=== PATIENT | male | born 1945 | race Caucasian/White ===

== ENCOUNTER 2020-09-07 15:04 | Outpatient (REF) | payer MEDICARE, SELFPAY ==
[2020-09-07 16:34] LABS: Thyroid Stimulating Hormone 2.26 mIU/mL (0.32-4.0)
== END 2020-09-07 15:05 | disposition home or self-care (01) ==
LOC: HO.LAB 15:04
PROVIDERS: PCP Internal Medicine; Visit Provider Internal Medicine
DX: E03.9 Hypothyroidism, unspecified (principal)
CPT/HCPCS: 84443

== ENCOUNTER 2020-12-12 13:26 | Outpatient (REF) | payer MEDICARE, SELFPAY ==
[2020-12-12 14:49] LABS: Cholesterol 194 mg/dL; HDL Cholesterol 57 mg/dL; LDL Cholesterol Calculated 88 mg/dl; Triglycerides 249 mg/dL
[2020-12-12 14:58] LABS: Anion Gap 13 (12-20); Blood Urea Nitrogen 13 mg/dL (9-16); Calcium 9.9 mg/dL (8.4-10.2); Carbon Dioxide 32 mmol/L (22-29); Chloride 99 mmol/L (96-108); Estimated Glomerular Filt Rate > 60; Phosphorus 3.8 mg/dL (2.7-4.5); Potassium 4.8 mmol/l (3.3-5.1); Sodium 139 mmol/L (135-145)
[2020-12-12 15:14] LABS: Thyroid Stimulating Hormone 2.77 uIU/mL (0.32-4.0)
[2020-12-12 16:02] LABS: Renal w Reflex Lab Use Only Order verified
== END 2020-12-12 13:27 | disposition home or self-care (01) ==
LOC: HO.LAB 13:26
PROVIDERS: Absent Provider Internal Medicine Nephrology; PCP Internal Medicine; Visit Provider Internal Medicine
DX: N20.0 Calculus of kidney (principal); E03.9 Hypothyroidism, unspecified
CPT/HCPCS: 36415; 80051; 80061; 82310; 82565; 84100; 84443; 84520

== ENCOUNTER 2021-03-17 14:36 | Outpatient (REF) | payer MEDICARE, SELFPAY ==
[2021-03-17 15:30] LABS: Cholesterol 208 mg/dL; HDL Cholesterol 54 mg/dL; LDL Cholesterol Calculated 101 mg/dl; Triglycerides 266 mg/dL
[2021-03-17 15:50] LABS: Thyroid Stimulating Hormone 3.73 uIU/mL (0.32-4.0)
== END 2021-03-17 14:37 | disposition home or self-care (01) ==
LOC: HO.LAB 14:36
PROVIDERS: PCP Internal Medicine; Visit Provider Internal Medicine
DX: E11.9 Type 2 diabetes mellitus without complications (principal); E03.9 Hypothyroidism, unspecified
CPT/HCPCS: 36415; 80061; 84443

== ENCOUNTER 2021-06-07 14:34 | Outpatient (REF) | payer MEDICARE, SELFPAY ==
[2021-06-07 16:15] LABS: Calcium 10.2 mg/dL (8.4-10.2)
[2021-06-07 16:18] LABS: Cholesterol 219 mg/dL; HDL Cholesterol 58 mg/dL; LDL Cholesterol Calculated 111 mg/dl; Triglycerides 251 mg/dL
[2021-06-07 16:21] LABS: Anion Gap 15 (12-20); Blood Urea Nitrogen 13 mg/dL (9-16); Calcium 10.2 mg/dL (8.4-10.2); Carbon Dioxide 30 mmol/L (22-29); Chloride 100 mmol/L (96-108); Estimated Glomerular Filt Rate > 60; Phosphorus 3.8 mg/dL (2.7-4.5); Potassium 4.3 mmol/L (3.3-5.1); Sodium 141 mmol/L (135-145)
[2021-06-07 16:39] LABS: Thyroid Stimulating Hormone 1.71 uIU/mL (0.32-4.0)
== END 2021-06-07 14:35 | disposition home or self-care (01) ==
LOC: HO.LAB 14:34
PROVIDERS: Absent Provider Internal Medicine; PCP Internal Medicine; Visit Provider Internal Medicine Nephrology
DX: E03.9 Hypothyroidism, unspecified (principal); E11.9 Type 2 diabetes mellitus without complications; N20.0 Calculus of kidney
CPT/HCPCS: 36415; 80051; 80061; 82310; 82565; 84100; 84443; 84520

== ENCOUNTER 2022-03-26 09:34 | Outpatient (REF) | payer MEDICARE, SELFPAY ==
[2022-03-26 11:59] LABS: Prostate Specific Antigen < 0.05 ng/mL (<0.05-4.0)
== END 2022-03-26 09:35 | disposition home or self-care (01) ==
LOC: HO.LAB 09:34
PROVIDERS: Absent Provider Physician Assistant; PCP Internal Medicine; Visit Provider Internal Medicine
DX: Z12.5 Encounter for screening for malignant neoplasm of prostate (principal); Z85.46 Personal history of malignant neoplasm of prostate
CPT/HCPCS: 36415; 84153

== ENCOUNTER 2022-07-09 14:19 | Outpatient (REF) | payer MEDICARE, SELFPAY ==
[2022-07-09 16:24] LABS: Thyroid Stimulating Hormone 1.34 uIU/mL (0.32-4.0)
== END 2022-07-09 14:20 | disposition home or self-care (01) ==
LOC: HO.LAB 14:19
PROVIDERS: PCP Internal Medicine; Visit Provider Internal Medicine
DX: Z00.00 Encounter for general adult medical examination without abnormal findings (principal)
CPT/HCPCS: 36415; 84443

== ENCOUNTER 2022-10-24 09:39 | Outpatient (REF) | payer MEDICARE, SELFPAY ==
[2022-10-24 09:56] LABS: MANUAL DIFF FLAG NO
[2022-10-24 10:22] LABS: Basophils Absolute Auto 0.1 X10*3/uL (0.0-0.2); Basophils Percent Auto 1.1 % (0-2); Eosinophils Absolute Auto 0.3 X10*3/uL (0.0-0.4); Eosinophils Percent Auto 3.8 % (0-4); Hematocrit 50.4 % (42.0-52.0); Hemoglobin 16.4 g/dl (14.0-18.0); Imm Gran Abs Auto 0.03 X10*3/uL (0.00-0.03); Imm Gran Pct Auto 0.3 % (0.0-0.4); Lymphocytes Absolute Auto 3.1 X10*3/uL (1.2-4.9); Lymphocytes Percent Auto 34.6 % (20-40); Mean Corpuscular HGB Conc 32.5 g/dl (31.0-36.0); Mean Corpuscular Hemoglobin 30.4 pg (27.0-33.0); Mean Corpuscular Volume 93.3 fL (80.0-98.0); Mean Platelet Volume 10.3 fL (9.4-12.4); Monocytes Absolute Auto 0.6 X10*3/uL (0.1-1.2); Monocytes Percent Auto 6.9 % (2-11); Neutrophils Absolute Auto 4.8 x10*3/uL (2.0-8.3); Neutrophils Percent Auto 53.3 % (45-73); Platelet Count 262 X10*3/uL (160-400); Red Cell Distribution Width 12.7 % (11.0-16.0)
[2022-10-24 11:20] LABS: Alanine Aminotransferase 14 U/L (0-40); Albumin Level 4.2 g/dL (3.5-5.0); Alkaline Phosphatase 72 U/L (39-117); Anion Gap 16 (12-20); Aspartate Amino Transferase 22 U/L (5-37); Bilirubin Total 1.4 mg/dL (0.0-1.0); Blood Urea Nitrogen 11 mg/dL (9-16); Carbon Dioxide 29 mmol/L (22-29); Chloride 99 mmol/L (96-108); Cholesterol 224 mg/dL; Estimated Glomerular Filt Rate > 60; Glucose Fasting 85 mg/dL (60-99); HDL Cholesterol 58 mg/dL; LDL Cholesterol Calculated 127 mg/dl; Potassium 4.1 mmol/L (3.3-5.1); Prostate Specific Antigen Scr < 0.10 ng/mL (<0.05-4.0); Sodium 140 mmol/L (135-145); Total Protein 7.7 g/dL (6.5-8.0); Triglycerides 197 mg/dL
== END 2022-10-24 09:40 | disposition home or self-care (01) ==
LOC: HO.LAB 09:39
PROVIDERS: PCP Internal Medicine; Visit Provider Internal Medicine
DX: Z00.00 Encounter for general adult medical examination without abnormal findings (principal); Z12.5 Encounter for screening for malignant neoplasm of prostate; Z13.0 Encounter for screening for diseases of the blood and blood-forming organs and certain disorders involving the immune mechanism
CPT/HCPCS: 36415; 80053; 80061; 84153; 85025

== ENCOUNTER 2023-04-23 09:00 | Outpatient (REF) | payer MEDICARE, SELFPAY | END 2023-04-23 09:01 | disposition home or self-care (01) | LOC: HO.LAB 09:00 | PROVIDERS: PCP Internal Medicine; Visit Provider Internal Medicine | DX: Z13.89 Encounter for screening for other disorder (principal) ==

== ENCOUNTER 2023-07-29 09:18 | Outpatient (REF) | payer MEDICARE, SELFPAY ==
[2023-07-29 09:34] LABS: MANUAL DIFF FLAG NO
[2023-07-29 10:03] LABS: Basophils Absolute Auto 0.1 X10*3/uL (0.0-0.2); Basophils Percent Auto 1.2 % (0-2); Eosinophils Absolute Auto 0.4 X10*3/uL (0.0-0.4); Eosinophils Percent Auto 4.1 % (0-4); Hematocrit 49.1 % (42.0-52.0); Hemoglobin 16.1 g/dl (14.0-18.0); Imm Gran Abs Auto 0.02 X10*3/uL (0.00-0.03); Imm Gran Pct Auto 0.2 % (0.0-0.4); Lymphocytes Absolute Auto 3.4 X10*3/uL (1.2-4.9); Lymphocytes Percent Auto 39.8 % (20-40); Mean Corpuscular HGB Conc 32.8 g/dl (31.0-36.0); Mean Corpuscular Hemoglobin 30.7 pg (27.0-33.0); Mean Corpuscular Volume 93.7 fL (80.0-98.0); Mean Platelet Volume 9.3 fL (9.4-12.4); Monocytes Absolute Auto 0.6 X10*3/uL (0.1-1.2); Monocytes Percent Auto 6.5 % (2-11); Neutrophils Absolute Auto 4.1 x10*3/uL (2.0-8.3); Neutrophils Percent Auto 48.2 % (45-73); Platelet Count 287 X10*3/uL (160-400); Red Blood Count 5.24 X10*6/uL (4.60-5.80); Red Cell Distribution Width 12.4 % (11.0-16.0); White Blood Count 8.5 X10*3/uL (4.8-10.8)
[2023-07-29 11:07] LABS: Alanine Aminotransferase 12 U/L (0-40); Albumin Level 4.2 g/dL (3.5-5.0); Alkaline Phosphatase 64 U/L (39-117); Anion Gap 12 (12-20); Aspartate Amino Transferase 19 U/L (5-37); Blood Urea Nitrogen 11 mg/dL (9-16); Calcium 10.2 mg/dL (8.4-10.2); Carbon Dioxide 32 mmol/L (22-29); Chloride 100 mmol/L (96-108); Cholesterol 224 mg/dL (<200); Estimated Glomerular Filt Rate > 60; Glucose Fasting 90 mg/dL (60-99); HDL Cholesterol 60 mg/dL (>40); LDL Cholesterol Calculated 126 mg/dL (<100); Potassium 4.4 mmol/L (3.3-5.1); Sodium 140 mmol/L (135-145); Thyroid Stimulating Hormone 6.86 uIU/mL (0.32-4.0); Total Protein 8.1 g/dL (6.5-8.0); Triglycerides 193 mg/dL (<150)
== END 2023-07-29 09:19 | disposition home or self-care (01) ==
LOC: HO.LAB 09:18
PROVIDERS: PCP Internal Medicine; Visit Provider Internal Medicine
DX: D64.9 Anemia, unspecified (principal); N28.9 Disorder of kidney and ureter, unspecified; E03.9 Hypothyroidism, unspecified; E78.5 Hyperlipidemia, unspecified
CPT/HCPCS: 36415; 80053; 80061; 84443; 85025

== ENCOUNTER 2023-10-30 11:25 | Outpatient (AMB) | payer BC, SELFPAY ==
[2023-10-30 11:26] VITALS: BP 122/66; PULSE 87; O2SAT 97; BMI 20.4
--- NOTE | 2023-10-30 11:26 | MHC.PC.OV ---
Vital Signs 10/30/23 11:26 Height 5 ft 10 in Weight 142 lb BMI 20.4 BP 122/66 Blood Pressure Location Lt brachial Position Sitting Pulse 87 Pulse Source Pulse Oximeter Pulse Oximetry (%) 97 Oxygen Delivery Method Room Air Intake Visit Reasons: 3mth f/u Engine Mechanic Required: No Digital Designer: Not Required per policy Accompanied by: Self / Same As Patient Allergies Gadolinium-Containing Contrast Medi [Gadolinium-Containing Contrast] Adverse Reaction (Mild, Verified 10/30/23 11:26) VOMITING Medication List - Last Reconciled 10/31/23 by He Babcock MD Bacillus coagulans (Probiotic (B. coagulans)) cells PO biotin mcg PO cholecalciferol (vitamin D3) 25 mcg PO DAILY fexofenadine (Shanique Allergy) 180 mg PO DAILY hydrochlorothiazide 25 mg PO DAILY levothyroxine 75 mcg PO DAILY lorazepam 0.5 mg PO Q6H PRN melatonin 10 mg PO BEDTIME PRN multivitamin 1 tab PO DAILY omeprazole 20 mg PO DAILY paroxetine HCl 20 mg PO DAILY tamsulosin 0.4 mg PO DAILY Tobacco use date assessed: 04/24/23 Fall risk assessment: No Falls in past year Last assessed Fall Risk: 10/30/23 Dental Screening Dental Screen Date: 10/30/23 Did you have a dental visit in the last 12 months?: Yes Did you have a dental problem in the last 6 months where you did not have access to dental care?: No Was dental information given to patient?: Patient has dentist HPI 3mth f/u HPI Details HTN hypothyroidism and chronic anxiety; doing well on current rx PFSH Medical History Thromboembolism Surgical History History of ileostomy S/P excision of lipoma History of thyroid nodule History of prostatectomy Family History Father Diabetes Congestive heart failure Mother Diabetes Heart disease Social History Housing: House Alcohol intake: never Patient Tobacco Use Status: Never used Tobacco e-Cigarette/Vaping Use: Never Used Second Hand Smoke Exposure: No service: No Current occupational status: retired Cognitive needs: No Hearing needs: No Vision needs: Yes Questionnaire Thrive Questionnaire Date Thrive assessed: 04/24/23 JOSIAS-7 AMB Questionnaire JOSIAS-7 Date JOSIAS - 7 assessed: 04/24/23 Source: Developed by Drs. Guero Aiken, Mali Rendon, Rupesh Vargas and colleagues, with an educational zackery from [email or web address]. Review of Systems Const Denies chills, Denies headache(s) and Denies weight loss ENT Denies headache(s) Card Denies chest pain, Denies syncope, Denies irregular heart rhythm and Denies dyspnea Resp Denies chest congestion, Denies cough and Denies dyspnea GI Denies abdominal pain, Denies change in stool character, Denies nausea and Denies vomiting Musc Denies deformity and Denies joint swelling Neuro Denies syncope and Denies headache(s) Physical exam (Primary Care) Vital Signs: Last Vital Signs Pulse 87 10/30/23 11:26 BP 122/66 10/30/23 11:26 Pulse Ox 97 10/30/23 11:26 Oxygen Delivery Method Room Air 10/30/23 11:26 BMI result Body Mass Index 20.4 Tobacco/Smoking Status: Tobacco use Status Tobacco use date assessed 04/24/23 10/30/23 11:27 Patient Tobacco Use Status Never used Tobacco 10/30/23 11:27 Tobacco use type 09/20/21 13:12 e-Cigarette/Vaping Use Never Used 10/30/23 11:27 Thrive Assessment: Date of Thrive Assessment Date Thrive assessed 04/24/23 10/30/23 11:27 Const General: cooperative, comfortable, no acute distress and alert Neck Neck: Yes no lymphadenopathy Thyroid: Thyroid normal Resp Effort & Inspection: normal respiratory effort Auscultation: clear to auscultation bilaterally Percussion: percussion normal Cardio Jugular venous distension: no JVD Palpation: normal PMI Rate: regular rate Rhythm: regular rhythm Heart sounds: S1 normal heart sound present and S2 normal heart sound present GI Inspection: Yes normal to inspection Palpation (GI): No hepatosplenomegaly present Skin General skin exam: no rashes or lesions noted Extrem General: Yes no clubbing, cyanosis or edema Assessment and Plan Assessment & Plan (1) Depression: Code(s): F32.A - Depression, unspecified Plan: stable; sheriff=me rx (2) Anxiety: Code(s): F41.9 - Anxiety disorder, unspecified Plan: stable; same rx (3) Hypothyroidism: Code(s): E03.9 - Hypothyroidism, unspecified Plan: stable; do labs Orders: Orders Complete Blood Count Auto Diff Today D64.9 - Anemia, unspecified Comprehensive [place]. Panel Fast Today N28.9 - Disorder of kidney and ureter, unspecified Lipid Panel 10/30/23 E78.5 - Hyperlipidemia, unspecified Thyroid Stimulating Hormone Today E03.9 - Hypothyroidism, unspecified Coding Level of Care Code Est Pt Level 4 (80603) Diagnoses Depression F32.A Anxiety F41.9 Hypothyroidism E03.9
== END 2023-10-30 11:42 | disposition home or self-care (01) ==
PROVIDERS: PCP Internal Medicine; Visit Provider Internal Medicine
DX: F32.A Depression, unspecified (principal); F41.9 Anxiety disorder, unspecified; E03.9 Hypothyroidism, unspecified
CPT/HCPCS: 99214

== ENCOUNTER 2024-02-11 09:02 | Outpatient (REF) | payer BC, SELFPAY ==
[2024-02-11 09:20] LABS: MANUAL DIFF FLAG NO
[2024-02-11 10:00] LABS: Basophils Absolute Auto 0.1 X10*3/uL (0.0-0.2); Basophils Percent Auto 1.3 % (0-2); Eosinophils Absolute Auto 0.3 X10*3/uL (0.0-0.4); Eosinophils Percent Auto 3.3 % (0-4); Hematocrit 45.3 % (42.0-52.0); Imm Gran Abs Auto 0.02 X10*3/uL (0.00-0.03); Imm Gran Pct Auto 0.3 % (0.0-0.4); Lymphocytes Absolute Auto 2.8 X10*3/uL (1.2-4.9); Lymphocytes Percent Auto 35.2 % (20-40); Mean Corpuscular HGB Conc 33.1 g/dl (31.0-36.0); Mean Corpuscular Hemoglobin 30.6 pg (27.0-33.0); Mean Corpuscular Volume 92.4 fL (80.0-98.0); Mean Platelet Volume 9.4 fL (9.4-12.4); Monocytes Absolute Auto 0.6 X10*3/uL (0.1-1.2); Monocytes Percent Auto 7.4 % (2-11); Neutrophils Absolute Auto 4.1 x10*3/uL (2.0-8.3); Neutrophils Percent Auto 52.5 % (45-73); Platelet Count 320 X10*3/uL (160-400); Red Cell Distribution Width 12.9 % (11.0-16.0); White Blood Count 7.9 X10*3/uL (4.8-10.8)
[2024-02-11 10:28] LABS: Alanine Aminotransferase 15 U/L (0-40); Alkaline Phosphatase 70 U/L (39-117); Anion Gap 12 (12-20); Aspartate Amino Transferase 18 U/L (5-37); Blood Urea Nitrogen 11 mg/dL (9-16); Calcium 9.8 mg/dL (8.4-10.2); Carbon Dioxide 32 mmol/L (22-29); Chloride 102 mmol/L (96-108); Cholesterol 199 mg/dL (<200); Estimated Glomerular Filt Rate > 60; Glucose Fasting 90 mg/dL (60-99); HDL Cholesterol 64 mg/dL (>40); LDL Cholesterol Calculated 105 mg/dL (<100); Potassium 3.8 mmol/L (3.3-5.1); Sodium 142 mmol/L (135-145); Total Protein 7.6 g/dL (6.5-8.0); Triglycerides 150 mg/dL (<150)
[2024-02-11 10:43] LABS: Thyroid Stimulating Hormone 6.35 uIU/mL (0.32-4.0)
== END 2024-02-11 09:03 | disposition home or self-care (01) ==
LOC: HO.LAB 09:02
PROVIDERS: PCP Internal Medicine; Visit Provider Internal Medicine
DX: N28.9 Disorder of kidney and ureter, unspecified (principal); E03.9 Hypothyroidism, unspecified; E78.5 Hyperlipidemia, unspecified; D64.9 Anemia, unspecified
CPT/HCPCS: 36415; 80053; 80061; 84443; 85025

== ENCOUNTER 2024-02-13 11:29 | Outpatient (AMB) | payer BC, SELFPAY ==
[2024-02-13 11:30] VITALS: BP 114/64; PULSE 67; O2SAT 98; BMI 19.4
--- NOTE | 2024-02-13 11:30 | A.OFFPC_ITS ---
Vital Signs 02/13/24 11:30 Height 5 ft 10 in Weight 135 lb BMI 19.4 BP 114/64 Blood Pressure Location Lt brachial Position Sitting Pulse 67 Pulse Source Pulse Oximeter Pulse Oximetry (%) 98 Oxygen Delivery Method Room Air Intake Visit Reasons: 3 Month F/U Wireless Construction Manager Required: No Drafter Castings: Not Required per policy Accompanied by: Self / Same As Patient Allergies Gadolinium-Containing Contrast Medi [Gadolinium-Containing Contrast] Adverse Reaction (Mild, Verified 02/13/24 11:30) VOMITING Medication List - Last Reconciled 02/13/24 by He Babcock MD Bacillus coagulans (Probiotic (B. coagulans)) cells PO biotin mcg PO cholecalciferol (vitamin D3) 25 mcg PO DAILY fexofenadine (Shanique Allergy) 180 mg PO DAILY hydrochlorothiazide 25 mg PO DAILY levothyroxine 75 mcg PO DAILY lorazepam 0.5 mg PO Q6H PRN multivitamin 1 tab PO DAILY omeprazole 20 mg PO DAILY paroxetine HCl 20 mg PO DAILY tamsulosin 0.4 mg PO DAILY Tobacco use date assessed: 02/13/24 Fall risk assessment: No Falls in past year Last assessed Fall Risk: 02/13/24 Dental Screening Dental Screen Date: 02/13/24 Did you have a dental visit in the last 12 months?: Yes Did you have a dental problem in the last 6 months where you did not have access to dental care?: No Was dental information given to patient?: Patient has dentist HPI 3 Month F/U HPI Details hypothyr on rx; doing well and compliant PFSH Medical History Thromboembolism Surgical History History of ileostomy S/P excision of lipoma History of thyroid nodule History of prostatectomy Family History Father Diabetes Congestive heart failure Mother Diabetes Heart disease Social History Housing: House Alcohol intake: never Patient Tobacco Use Status: Never used Tobacco e-Cigarette/Vaping Use: Never Used Second Hand Smoke Exposure: No service: No Current occupational status: retired Cognitive needs: No Hearing needs: No Vision needs: Yes Questionnaire PHQ-9 Over the last 2 weeks, how often have you been bothered by any of the following problems? 1. Little interest or pleasure in doing things: not at all 2. Feeling down, depressed, or hopeless: not at all 3. Trouble falling or staying asleep, or sleeping too much: not at all 4. Feeling tired or having little energy: not at all 5. Poor appetite or overeating: not at all 6. Feeling bad about yourself - or that you are a failure or have let yourself or your family down: not at all 7. Trouble concentrating on things, such as reading the newspaper or watching television: not at all 8. Moving or speaking so slowly that other people could have noticed. Or the opposite - being so fidgety or restless that you have been moving around a lot more than usual: not at all 9. Thoughts that you would be better off or of hurting yourself in some way: not at all Total score: 0 Depression Screening Interpretation: Negative Depression Screening Done: Yes 85201 - PHQ-9 Billing: Yes Source: Developed by Drs. Guero Aiken, Mali Rendon, Rupesh Vargas and colleagues, with an educational zackery from [employer]. Thrive Questionnaire Date Thrive assessed: 02/13/24 I am a: Patient What is your living situation today?: I have a steady place to live Within the past 12 months, did the food you bought not last and you didn't have the money to get more?: Never true Within the past 12 months, did you worry whether your food would run out before you got money to buy more?: Never true Do you have trouble paying for medicines?: No Do you have trouble getting transportation to medical appointments?: No Do you have trouble paying your heating and electricity bill?: No Do you have trouble taking care of your child, family member or friend?: No Do you have trouble with day-to-day activities such as bathing, preparing meals, shopping, managing finances, etc.?: No Are you currently unemployed and looking for a job?: No Are you interested in more education?: No Please select the resources that you would like help with: None THRIVE Score: 0 AUDIT C Alcohol Use Questionnaire (AUDIT-C) 1. How often do you have a drink containing alcohol?: Never Total Score: 0 Score Reviewed/Action Taken: Yes JOSIAS-7 AMB Questionnaire JOSIAS-7 Date JOSIAS - 7 assessed: 02/13/24 Feeling nervous, anxious, or on edge: 0 = Not at all Not being able to stop or control worryin = Not at all Worrying too much about different things: 0 = Not at all Trouble relaxin = Not at all Being so restless that it is hard to sit still: 0 = Not at all Becoming easily annoyed or irritable: 0 = Not at all Feeling afraid as if something awful might happen: 0 = Not at all Total JOSIAS-7 score (0-4 normal; 5-9 mild; 10-14 moderate; 15-21 severe): 0 Source: Developed by Drs. Guero Aiken, Mali Rendon, Rupesh Vargas and colleagues, with an educational zackery from [employer]. Review of Systems Const Denies chills, Denies headache(s) and Denies weight loss ENT Denies headache(s) Card Denies chest pain, Denies syncope, Denies irregular heart rhythm and Denies dy spnea Resp Denies chest congestion, Denies cough and Denies dyspnea GI Denies abdominal pain, Denies change in stool character, Denies nausea and Farooq es vomiting Musc Denies deformity and Denies joint swelling Neuro Denies syncope and Denies headache(s) Physical exam (Primary Care) Vital Signs: Last Vital Signs Pulse 67 02/13/24 11:30 BP 114/64 02/13/24 11:30 Pulse Ox 98 02/13/24 11:30 Oxygen Delivery Method Room Air 02/13/24 11:30 BMI result Body Mass Index 19.4 Tobacco/Smoking Status: Tobacco use Status Tobacco use date assessed 02/13/24 02/13/24 11:38 Patient Tobacco Use Status Never used Tobacco 02/13/24 11:38 Tobacco use type 09/20/21 13:12 e-Cigarette/Vaping Use Never Used 02/13/24 11:38 PHQ-9: PHQ-9 Score PHQ-9: Total score 0 02/13/24 11:38 Depression Screening Interpretation: Negative Thrive Assessment: Date of Thrive Assessment Date Thrive assessed 02/13/24 02/13/24 11:38 Const General: cooperative, comfortable, no acute distress and alert Neck Neck: Yes no lymphadenopathy Thyroid: Thyroid normal Resp Effort & Inspection: normal respiratory effort Auscultation: clear to auscultation bilaterally Percussion: percussion normal Cardio Jugular venous distension: no JVD Palpation: normal PMI Rate: regular rate Rhythm: regular rhythm Heart sounds: S1 normal heart sound present and S2 normal heart sound present GI Inspection: Yes normal to inspection Palpation (GI): No hepatosplenomegaly present Skin General skin exam: no rashes or lesions noted Extrem General: Yes no clubbing, cyanosis or edema Assessment and Plan Assessment & Plan (1) Hypothyroidism: Code(s): E03.9 - Hypothyroidism, unspecified Plan: stable; same rx Orders: Orders Thyroid Stimulating Hormone Today E03.9 - Hypothyroidism, unspecified Medications: Refilled paroxetine HCl 20 mg PO DAILY 90 tabs 8RF Coding Level of Care Code Est Pt Level 3 (26629) Diagnoses Hypothyroidism E03.9
== END 2024-02-13 11:57 | disposition home or self-care (01) ==
PROVIDERS: PCP Internal Medicine; Visit Provider Internal Medicine
DX: E03.9 Hypothyroidism, unspecified (principal)
CPT/HCPCS: 99213

== ENCOUNTER 2024-05-15 12:06 | Outpatient (REF) | payer BC, SELFPAY ==
[2024-05-15 13:36] LABS: Thyroid Stimulating Hormone 4.15 uIU/mL (0.32-4.0)
== END 2024-05-15 12:07 | disposition home or self-care (01) ==
LOC: HO.LAB 12:06
PROVIDERS: PCP Internal Medicine; Visit Provider Internal Medicine
DX: E03.9 Hypothyroidism, unspecified (principal)
CPT/HCPCS: 36415; 84443

== ENCOUNTER 2024-05-20 10:54 | Outpatient (AMB) | payer BC, SELFPAY ==
[2024-05-20 10:57] VITALS: BP 128/62; PULSE 74; O2SAT 98; BMI 19.4
--- NOTE | 2024-05-20 10:57 | MHC.PC.OV ---
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 coagulans)) cells PO biotin mcg PO cholecalciferol (vitamin D3) 25 mcg PO DAILY fexofenadine (Shanique Allergy) 180 mg PO DAILY hydrochlorothiazide 25 mg PO DAILY levothyroxine 75 mcg PO DAILY lorazepam 0.5 mg PO Q6H PRN multivitamin 1 tab PO DAILY omeprazole 20 mg PO DAILY paroxetine HCl 20 mg PO DAILY tamsulosin 0.4 mg PO DAILY Tobacco use date assessed: 02/13/24 Fall risk assessment: No Falls in past year Last assessed Fall Risk: 05/20/24 Dental Screening Dental Screen Date: 02/13/24 HPI 3mth f/u HPI Details hypothyroidism on rx; compliant PFSH Medical History Thromboembolism Surgical History History of ileostomy S/P excision of lipoma History of thyroid nodule History of prostatectomy Family History Father Diabetes Congestive heart failure Mother Diabetes Heart disease Social History Housing: House Alcohol intake: never Patient Tobacco Use Status: Never used Tobacco e-Cigarette/Vaping Use: Never Used Second Hand Smoke Exposure: No service: No Current occupational status: retired Cognitive needs: No Hearing needs: No Vision needs: Yes Questionnaire Thrive Questionnaire Date Thrive assessed: 02/13/24 JOSIAS-7 AMB Questionnaire JOSIAS-7 Date JOSIAS - 7 assessed: 02/13/24 Source: Developed by Drs. Guero Aiken, Mali Rendon, Rupesh Vargas and colleagues, with an educational zackery from [employer]. Review of Systems Const Denies chills, Denies headache(s) and Denies weight loss ENT Denies headache(s) Card Denies chest pain, Denies syncope, Denies irregular heart rhythm and Denies dyspnea Resp Denies chest congestion, Denies cough and Denies dyspnea GI Denies abdominal pain, Denies change in stool character, Denies nausea and Denies vomiting Musc Denies deformity and Denies joint swelling Neuro Denies syncope and Denies headache(s) Physical exam (Primary Care) Vital Signs: Last Vital Signs Pulse 74 05/20/24 10:57 BP 128/62 05/20/24 10:57 Pulse Ox 98 05/20/24 10:57 Oxygen Delivery Method Room Air 05/20/24 10:57 BMI result Body Mass Index 19.4 Tobacco/Smoking Status: Tobacco use Status Tobacco use date assessed 02/13/24 05/20/24 10:58 Patient Tobacco Use Status Never used Tobacco 05/20/24 10:58 Tobacco use type 09/20/21 13:12 e-Cigarette/Vaping Use Never Used 05/20/24 10:58 Thrive Assessment: Date of Thrive Assessment Date Thrive assessed 02/13/24 05/20/24 10:58 Const General: cooperative, comfortable, no acute distress and alert Neck Neck: Yes no lymphadenopathy Thyroid: Thyroid normal Resp Effort & Inspection: normal respiratory effort Auscultation: clear to auscultation bilaterally Percussion: percussion normal Cardio Jugular venous distension: no JVD Palpation: normal PMI Rate: regular rate Rhythm: regular rhythm Heart sounds: S1 normal heart sound present and S2 normal heart sound present GI Inspection: Yes normal to inspection Palpation (GI): No hepatosplenomegaly present Skin General skin exam: no rashes or lesions noted Extrem General: Yes no clubbing, cyanosis or edema Assessment and Plan Assessment & Plan (1) Hypothyroidism: Code(s): E03.9 - Hypothyroidism, unspecified Plan: stable; same rx Orders: Orders Lipid Panel Today Z13.220 - Encounter for screening for lipoid disorders Comprehensive [place]. Panel Fast Today Z13.9 - Encounter for screening, unspecified Thyroid Stimulating Hormone Today Z13.29 - Encounter for screening for other suspected endocrine disorder Complete Blood Count Auto Diff Today Z13.0 - Encounter for screening for diseases of the blood and blood-forming organs and certain disorders involving the immune mechanism Coding Level of Care Code Est Pt Level 3 (43822) Diagnoses Hypothyroidism E03.9
== END 2024-05-20 11:12 | disposition home or self-care (01) ==
PROVIDERS: PCP Internal Medicine; Visit Provider Internal Medicine
DX: E03.9 Hypothyroidism, unspecified (principal)
CPT/HCPCS: 99213

== ENCOUNTER 2024-08-12 09:18 | Outpatient (REF) | payer BC, SELFPAY ==
[2024-08-12 09:42] LABS: MANUAL DIFF FLAG NO
[2024-08-12 10:30] LABS: Basophils Absolute Auto 0.1 X10*3/uL (0.0-0.2); Basophils Percent Auto 1.1 % (0-2); Eosinophils Absolute Auto 0.4 X10*3/uL (0.0-0.4); Eosinophils Percent Auto 3.7 % (0-4); Hematocrit 44.8 % (42.0-52.0); Hemoglobin 14.9 g/dl (14.0-18.0); Imm Gran Abs Auto 0.03 X10*3/uL (0.00-0.03); Imm Gran Pct Auto 0.3 % (0.0-0.4); Lymphocytes Absolute Auto 3.6 X10*3/uL (1.2-4.9); Lymphocytes Percent Auto 38.1 % (20-40); Mean Corpuscular HGB Conc 33.3 g/dl (31.0-36.0); Mean Corpuscular Hemoglobin 30.7 pg (27.0-33.0); Mean Corpuscular Volume 92.4 fL (80.0-98.0); Monocytes Absolute Auto 0.6 X10*3/uL (0.1-1.2); Monocytes Percent Auto 6.6 % (2-11); Neutrophils Absolute Auto 4.7 x10*3/uL (2.0-8.3); Neutrophils Percent Auto 50.2 % (45-73); Platelet Count 330 X10*3/uL (160-400); Red Blood Count 4.85 X10*6/uL (4.60-5.80); Red Cell Distribution Width 12.6 % (11.0-16.0); White Blood Count 9.4 X10*3/uL (4.8-10.8)
[2024-08-12 11:05] LABS: Anion Gap 15 (12-20); Blood Urea Nitrogen 12 mg/dL (9-16); Calcium 10.1 mg/dL (8.4-10.2); Carbon Dioxide 30 mmol/L (22-29); Chloride 101 mmol/L (96-108); Estimated Glomerular Filt Rate > 60; Potassium 4.1 mmol/L (3.3-5.1); Sodium 142 mmol/L (135-145)
[2024-08-12 11:22] LABS: Alanine Aminotransferase 14 U/L (0-40); Albumin Level 4.1 g/dL (3.5-5.0); Alkaline Phosphatase 69 U/L (39-117); Anion Gap 14 (12-20); Aspartate Amino Transferase 20 U/L (5-37); Bilirubin Total 0.9 mg/dL (0.0-1.0); Blood Urea Nitrogen 11 mg/dL (9-16); Carbon Dioxide 32 mmol/L (22-29); Chloride 100 mmol/L (96-108); Cholesterol 187 mg/dL (<200); Estimated Glomerular Filt Rate > 60; Glucose Fasting 88 mg/dL (60-99); HDL Cholesterol 58 mg/dL (>40); LDL Cholesterol Calculated 99 mg/dL (<100); Potassium 3.9 mmol/L (3.3-5.1); Sodium 142 mmol/L (135-145); Total Protein 7.8 g/dL (6.5-8.0); Triglycerides 151 mg/dL (<150)
[2024-08-12 11:27] LABS: Thyroid Stimulating Hormone 5.25 uIU/mL (0.32-4.0)
== END 2024-08-12 09:19 | disposition home or self-care (01) ==
LOC: HO.LAB 09:18
PROVIDERS: Absent Provider Internal Medicine Nephrology; PCP Internal Medicine; Visit Provider Internal Medicine
DX: N20.0 Calculus of kidney (principal); Z13.220 Encounter for screening for lipoid disorders; Z13.0 Encounter for screening for diseases of the blood and blood-forming organs and certain disorders involving the immune mechanism; Z13.29 Encounter for screening for other suspected endocrine disorder; Z13.9 Encounter for screening, unspecified
CPT/HCPCS: 36415; 80051; 80053; 80061; 82310; 82565; 84443; 84520; 85025

== ENCOUNTER 2024-09-10 11:43 | Outpatient (AMB) | payer BC, SELFPAY ==
--- NOTE | 2024-09-10 11:46 | MHC.PC.OV ---
Vital Signs 09/10/24 11:47 Height 5 ft 10 in Weight 135 lb BMI 19.4 BP 116/58 L Blood Pressure Location Lt brachial Position Sitting Pulse 68 Pulse Source Pulse Oximeter Pulse Oximetry (%) 96 Oxygen Delivery Method Room Air Intake Visit Reasons: 3 Month F/U Social Work Case Manager Required: No Accompanied by: Self / Same As Patient Allergies Gadolinium-Containing Contrast Medi [Gadolinium-Containing Contrast] Adverse Reaction (Mild, Verified 09/10/24 11:48) VOMITING Tobacco use date assessed: 02/13/24 Fall risk assessment: No Falls in past year Last assessed Fall Risk: 09/10/24 Dental Screening Dental Screen Date: 02/13/24 HPI 3 Month F/U HPI Details hypothyroidism on rx; doing well on rx; compliant [facility] Medical History Thromboembolism Surgical History History of ileostomy S/P excision of lipoma History of thyroid nodule History of prostatectomy Family History Father Diabetes Congestive heart failure Mother Diabetes Heart disease Social History Housing: House Alcohol intake: never Patient Tobacco Use Status: Never used Tobacco Tobacco use type: Cigarette e-Cigarette/Vaping Use: Never Used Second Hand Smoke Exposure: No service: No Current occupational status: retired Cognitive needs: No Hearing needs: No Vision needs: Yes Questionnaire PHQ-9 Over the last 2 weeks, how often have you been bothered by any of the following problems? 1. Little interest or pleasure in doing things: not at all 2. Feeling down, depressed, or hopeless: not at all 3. Trouble falling or staying asleep, or sleeping too much: not at all 4. Feeling tired or having little energy: not at all 5. Poor appetite or overeating: not at all 6. Feeling bad about yourself - or that you are a failure or have let yourself or your family down: not at all 7. Trouble concentrating on things, such as reading the newspaper or watching television: not at all 8. Moving or speaking so slowly that other people could have noticed. Or the opposite - being so fidgety or restless that you have been moving around a lot more than usual: not at all 9. Thoughts that you would be better off or of hurting yourself in some way: not at all Total score: 0 Depression Screening Interpretation: Negative Depression Screening Done: Yes 67142 - PHQ-9 Billing: Yes Source: Developed by Drs. Guero Aiken, Mali Rendon, Rupesh Vargas and colleagues, with an educational zackery from [employer]. Thrive Questionnaire Date Thrive assessed: 02/13/24 Are you currently unemployed and looking for a job?: No AUDIT C Alcohol Use Questionnaire (AUDIT-C) 1. How often do you have a drink containing alcohol?: Never Total Score: 0 Score Reviewed/Action Taken: Yes JOSIAS-7 AMB Questionnaire JOSIAS-7 Date JOSIAS - 7 assessed: 02/13/24 Source: Developed by Drs. Guero Aiken, Mali Rendon, Rupesh Vargas and colleagues, with an educational zackery from [employer]. Review of Systems Const Denies chills, Denies headache(s) and Denies weight loss ENT Denies headache(s) Card Denies chest pain, Denies syncope, Denies irregular heart rhythm and Denies dyspnea Resp Denies chest congestion, Denies cough and Denies dyspnea GI Denies abdominal pain, Denies change in stool character, Denies nausea and Denies vomiting Musc Denies deformity and Denies joint swelling Neuro Denies syncope and Denies headache(s) Physical exam (Primary Care) Vital Signs: Last Vital Signs Pulse 68 09/10/24 11:47 BP 116/58 L 09/10/24 11:47 Pulse Ox 96 09/10/24 11:47 Oxygen Delivery Method Room Air 09/10/24 11:47 BMI result Body Mass Index 19.4 Tobacco/Smoking Status: Tobacco use Status Tobacco use date assessed 02/13/24 09/10/24 11:51 Patient Tobacco Use Status Never used Tobacco 09/10/24 11:51 Tobacco use type Cigarette 09/10/24 11:51 e-Cigarette/Vaping Use Never Used 09/10/24 11:51 PHQ-9: PHQ-9 Score PHQ-9: Total score 0 09/10/24 11:51 Depression Screening Interpretation: Negative Thrive Assessment: Date of Thrive Assessment Date Thrive assessed 02/13/24 09/10/24 11:51 Const General: cooperative, comfortable, no acute distress and alert Neck Neck: Yes no lymphadenopathy Thyroid: Thyroid normal Resp Effort & Inspection: normal respiratory effort Auscultation: clear to auscultation bilaterally Percussion: percussion normal Cardio Jugular venous distension: no JVD Palpation: normal PMI Rate: regular rate Rhythm: regular rhythm Heart sounds: S1 normal heart sound present and S2 normal heart sound present GI Inspection: Yes normal to inspection Palpation (GI): No hepatosplenomegaly present Skin General skin exam: no rashes or lesions noted Extrem General: Yes no clubbing, cyanosis or edema Coding Level of Care Code Est Pt Level 3 (36174) Diagnoses Hypothyroidism E03.9 Assessment & Plan Assessment & Plan (1) Hypothyroidism: Code(s): E03.9 - Hypothyroidism, unspecified Category: Medical Plan: stable; same rx Orders: Orders Thyroid Stimulating Hormone Today Z13.29 - Encounter for screening for other suspected endocrine disorder
[2024-09-10 11:47] VITALS: BP 116/58; PULSE 68; O2SAT 96; BMI 19.4
== END 2024-09-10 12:06 | disposition home or self-care (01) ==
PROVIDERS: PCP Internal Medicine; Visit Provider Internal Medicine
DX: E03.9 Hypothyroidism, unspecified (principal)

== ENCOUNTER → 2024-09-10 11:43 | Outpatient (BNVA) | payer BC, SELFPAY | PROVIDERS: PCP Internal Medicine; Visit Provider Internal Medicine ==

== ENCOUNTER 2024-12-30 09:55 | Outpatient (REF) | payer MEDICARE, SELFPAY ==
--- OUTSIDE RECORDS SUMMARY | 2024-12-30 11:45 | XMS_ITS | Clinical Summary ---
Author Organization [facility] Address [address] [place] [address] Phone Care Team Providers Care Forensic Scientist Name Role Phone He Babcock MD Primary Care Provider Allergies Active Allergy Reactions Criticality Noted Date Comments Oxybutynin 08/17/2024 Other Reaction(s): Dry Mouth Medications Multiple Vitamin (MULTIVITAMIN ADULT PO) Take 1 tablet by mouth 1 (one) time each day Active acetaminophen (TYLENOL) 325 MG tablet Take 1 tablet by mouth 1 (one) time each day Active levothyroxine (SYNTHROID, LEVOTHROID) 75 MCG tablet Take 1 tablet by mouth 1 (one) time each day Active PARoxetine (PAXIL) 20 MG tablet Take 1 tablet by mouth 1 (one) time each day Active tamsulosin (FLOMAX) 0.4 MG 24 hr capsule Take 1 capsule by mouth 1 (one) time each day Active fexofenadine (VALERY) 180 MG tablet Take 180 mg by mouth 1 (one) time each day Active cholecalciferol (VITAMIN D-3) 25 MCG (1000 UT) capsule Take 1,000 Units by mouth 1 (one) time each day Active Magnesium 500 MG tablet Take 1 tablet by mouth 1 (one) time each day Active hydroCHLOROthia zide 25 MG tablet Take 1 tablet (25 mg total) by mouth 1 (one) time each day 90 tablet 3 07/23/2024 Active Active Problems Problem Noted Date Diagnosed Date Renal stone 06/08/2021 Family History Medical History Relation Comments Diabetes Father Diabetes Mother Heart disease Sibling Relation Status Comments Father Mother Sibling Social History Tobacco Use Types Packs/Day Years Used Date Smoking Tobacco: Never Smokeless Tobacco: Never Tobacco Cessation:Counseling Given: Not Answered Alcohol Use Standard Drinks/Week Comments No 0 (1 standard drink = 0.6 oz pur e alcohol) Sex and Gender Information Value Date Recorded Sex Assigned at Not on file Legal Sex Male 5:08 PM EST Gender Identity Not on file Sexual Orientation Not on file Last Filed Vital Signs Vital Sign Reading Time Taken Comments Blood Pressure 117/62 08/17/2024 1:47 PM EDT Pulse 68 08/17/2024 1:47 PM EDT Temperature - - Respiratory Rate - - Oxygen Saturation 96% 08/17/2024 1:47 PM EDT Inhaled Oxygen Concentration - - Weight 61.5 kg (135 lb 9.6 oz) 08/17/2024 1:47 P M EDT Height 177.8 cm (5' 10 ) 05/06/2020 12:00 PM EDT Body Mass Index 19.46 05/06/2020 12:00 PM EDT Plan of Treatment Upcoming Encounters Date Type Department Care Team (Late st Contact Info) Description 08/16/2025 1:15 PM EDT Office Visit [facility] [address] [place] [address] [place] [id number] Andi Ramirez MD [id number] [facility] [address] [place] [address] Health Maintenance Due Date Last Done Comments Pneumococcal Vaccine: 65+ Ye ars (1 of 2 - PCV) 1951 Influenza Vaccine (#1) 2024 Hepatitis B Vaccine Aged Out No longe r eligible based on patient's age to complete this topic Insurance [facility] Care Teams Forensic Scientist Relationship Specialty Start Date End Date He Babcock MD [id number] [place], [place] PCP - General 12/12/20
--- OUTSIDE RECORDS SUMMARY | 2024-12-30 11:45 | XMS_ITS | Clinical Summary ---
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 Role Phone Unavailable Primary Care Provider Unavailabl e Social History Tobacco Use Types Packs/Day Years Used Date Smoking Tobacco: Never Assessed Sex and Gender Information Value Date Recorded Sex Assigned at Not on file Gender Identity Not on file Sexual Orientation Not on file Plan of Treatment Health Maintenance Due Date Last Done Comments DTaP,Tdap,and Td Vaccines (1 - Tdap) 1965 Zoster Vaccines (1 of 2) 1996 Pneumococcal Vaccine: 65+ Ye ars (1 of 1 - PCV) 2011 RSV Immunization Patients 60 + Years Old (1 - 1-dose 75+ series) 2021 COVID-19 Vaccine ( - 2023-2 5 season) 2024 Influenza Vaccine (#1) 2024 HIB Vaccines Aged Out No longer eligi ble based on patient's age to complete this topic HPV Vaccines Aged Out No longer eligi ble based on patient's age to complete this topic Hepatitis A Vaccines Aged Out No long er eligible based on patient's age to complete this topic Hepatitis B Vaccines Aged Out No long er eligible based on patient's age to complete this topic IPV Vaccines Aged Out No longer eligi ble based on patient's age to complete this topic MMR Vaccines Aged Out No longer eligi ble based on patient's age to complete this topic Meningococcal ACWY Vaccine Aged Out N o longer eligible based on patient's age to complete this topic RSV Immunization Patients Un ivanna 20 months Aged Out No longer eligible b ased on patient's age to complete this topic Varicella Vaccines Aged Out No longer eligible based on patient's age to complete this topic
[2024-12-30 12:07] LABS: Thyroid Stimulating Hormone 7.84 uIU/mL (0.32-4.0)
== END 2024-12-30 09:56 | disposition home or self-care (01) ==
LOC: HO.LAB 09:55
PROVIDERS: PCP Internal Medicine; Visit Provider Internal Medicine
DX: Z13.29 Encounter for screening for other suspected endocrine disorder (principal)
CPT/HCPCS: 36415; 84443

== ENCOUNTER 2025-01-14 11:39 | Outpatient (AMB) | payer MEDICARE, SELFPAY ==
--- NOTE | 2025-01-14 11:47 | A.OFFPC_ITS ---
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 coagulans)) cells PO biotin mcg PO cholecalciferol (vitamin D3) 25 mcg PO DAILY fexofenadine (Shanique Allergy) 180 mg PO DAILY hydrochlorothiazide 25 mg PO DAILY levothyroxine 75 mcg PO DAILY lorazepam 0.5 mg PO Q6H PRN multivitamin 1 tab PO DAILY omeprazole 20 mg PO DAILY paroxetine HCl 20 mg PO DAILY tamsulosin 0.4 mg PO DAILY Tobacco use date assessed: 01/14/25 Fall risk assessment: No Falls in past year Last assessed Fall Risk: 01/14/25 Dental Screening Dental Screen Date: 01/14/25 Did you have a dental visit in the last 12 months?: Yes Did you have a dental problem in the last 6 months where you did not have access to dental care?: No Was dental information given to patient?: Patient has dentist HPI asthma HPI Details hypothyroidism on rx; compliant; TSH high PFSH Medical History Thromboembolism Surgical History History of ileostomy S/P excision of lipoma History of thyroid nodule History of prostatectomy Family History Father Diabetes Congestive heart failure Mother Diabetes Heart disease Social History Housing: House Alcohol intake: never Patient Tobacco Use Status: Never used Tobacco Tobacco use type: Cigarette e-Cigarette/Vaping Use: Never Used Second Hand Smoke Exposure: No service: No Current occupational status: retired Cognitive needs: No Hearing needs: No Vision needs: Yes Questionnaire PHQ-9 Over the last 2 weeks, how often have you been bothered by any of the following problems? 1. Little interest or pleasure in doing things: not at all 2. Feeling down, depressed, or hopeless: not at all 3. Trouble falling or staying asleep, or sleeping too much: not at all 4. Feeling tired or having little energy: not at all 5. Poor appetite or overeating: not at all 6. Feeling bad about yourself - or that you are a failure or have let yourself or your family down: not at all 7. Trouble concentrating on things, such as reading the newspaper or watching television: not at all 8. Moving or speaking so slowly that other people could have noticed. Or the opposite - being so fidgety or restless that you have been moving around a lot more than usual: not at all 9. Thoughts that you would be better off or of hurting yourself in some way: not at all Total score: 0 Depression Screening Interpretation: Negative Depression Screening Done: Yes 59615 - PHQ-9 Billing: Yes Source: Developed by Drs. Guero Aiken, Mali Rendon, Rupesh Vargas and colleagues, with an educational zackery from [employer]). Thrive Questionnaire Date Thrive assessed: 01/14/25 I am a: Patient What is your living situation today?: I have a steady place to live Within the past 12 months, did the food you bought not last and you didn't have the money to get more?: Never true Within the past 12 months, did you worry whether your food would run out before you got money to buy more?: Never true Do you have trouble paying for medicines?: No Do you have trouble getting transportation to medical appointments?: No Do you have trouble paying your heating and electricity bill?: No Do you have trouble taking care of your child, family member or friend?: No Do you have trouble with day-to-day activities such as bathing, preparing meals, shopping, managing finances, etc.?: No Are you currently unemployed and looking for a job?: No Are you interested in more education?: No Please select the resources that you would like help with: None Currently or been in a relationship where the following occur: No concerns reported THRIVE Score: 0 AUDIT C Alcohol Use Questionnaire (AUDIT-C) 1. How often do you have a drink containing alcohol?: Never 3. How often do you have six or more drinks on one occasion?: Never Total Score: 0 Score Reviewed/Action Taken: Yes JOSIAS-7 AMB Questionnaire JOSIAS-7 Date JOSIAS - 7 assessed: 01/14/25 Feeling nervous, anxious, or on edge: 0 = Not at all Not being able to stop or control worryin = Not at all Worrying too much about different things: 0 = Not at all Trouble relaxin = Not at all Being so restless that it is hard to sit still: 0 = Not at all Becoming easily annoyed or irritable: 0 = Not at all Feeling afraid as if something awful might happen: 0 = Not at all Total JOSIAS-7 score (0-4 normal; 5-9 mild; 10-14 moderate; 15-21 severe): 0 Source: Developed by Drs. Guero Aiken, Mali Rendon, Rupesh Vargas and colleagues, with an educational zackery from [employer]). JOSIAS-7 Assessment Billing JOSIAS-7 Assessment Tool: JOSIAS-7 Assessment 69140 Review of Systems Const Denies chills, Denies headache(s) and Denies weight loss ENT Denies headache(s) Card Denies chest pain, Denies syncope, Denies irregular heart rhythm and Denies dyspnea Resp Denies chest congestion, Denies cough and Denies dyspnea GI Denies abdominal pain, Denies change in stool character, Denies nausea and Denies vomiting Musc Denies deformity and Denies joint swelling Neuro Denies syncope and Denies headache(s) Physical exam (Primary Care) Vital Signs: Last Vital Signs Temp 96.9 F 01/14/25 11:48 Pulse 75 01/14/25 11:48 BP 114/64 01/14/25 11:48 Pulse Ox 98 01/14/25 11:48 Oxygen Delivery Method Room Air 01/14/25 11:48 BMI result Body Mass Index 20.1 Tobacco/Smoking Status: Tobacco use Status Tobacco use date assessed 01/14/25 01/14/25 11:52 Patient Tobacco Use Status Never used Tobacco 01/14/25 11:47 Tobacco use type Cigarette 01/14/25 11:47 e-Cigarette/Vaping Use Never Used 01/14/25 11:47 PHQ-9: PHQ-9 Score PHQ-9: Total score 0 01/14/25 11:52 Depression Screening Interpretation: Negative Thrive Assessment: Date of Thrive Assessment Date Thrive assessed 01/14/25 01/14/25 11:52 Currently or been in a relationship where the following occur: No concerns reported Const General: cooperative, comfortable, no acute distress and alert Neck Neck: Yes no lymphadenopathy Thyroid: Thyroid normal Resp Effort & Inspection: normal respiratory effort Auscultation: clear to auscultation bilaterally Percussion: percussion normal Cardio Jugular venous distension: no JVD Palpation: normal PMI Rate: regular rate Rhythm: regular rhythm Heart sounds: S1 normal heart sound present and S2 normal heart sound present GI Inspection: Yes normal to inspection Palpation (GI): No hepatosplenomegaly present Skin General skin exam: no rashes or lesions noted Extrem General: Yes no clubbing, cyanosis or edema Coding Level of Care Code Est Pt Level 3 (40145) Diagnoses Hypothyroidism E03.9 Additional Codes JOSIAS-7 Assessment Billing - JOSIAS-7 Assessment Tool: JOSIAS-7 Assessment 78188 ([id number]) PHQ-9 - 90606 - PHQ-9 Billing: Yes ([id number]) Assessment & Plan Assessment & Plan (1) Hypothyroidism: Code(s): E03.9 - Hypothyroidism, unspecified Category: Medical Plan: new dose sent Medications: New levothyroxine 88 mcg PO DAILY 90 tabs 0RF
[2025-01-14 11:48] VITALS: BP 114/64; PULSE 75; TEMP 36.1; O2SAT 98; BMI 20.1
--- OUTSIDE RECORDS SUMMARY | 2025-01-14 12:12 | XMS_ITS | Clinical Summary ---
Author Organization [facility] Address [address] [place] [address] Phone Care Team Providers Care Assistant Name Role Phone He Babcock MD Primary Care Provider [phone] Allergies Active Allergy Reactions Criticality Noted Date [...] Visit [facility] [address] [place] [address] [place] [address] Andi Ramirez MD [address] [facility] [address] [place] [address] Health Maintenance Due Date Last Done Comments Pneumococcal Vaccine: 65+ Ye ars (1 of 2 - PCV) 1952 Influenza Vaccine (#1) 2024 Hepatitis B Vaccine Aged Out No longe r eligible based on patient's age to complete this topic Insurance [facility] Care Teams Assistant Relationship Specialty Start Date End Date He Babcock MD [id number] [place], [place] PCP - General 12/12/20
--- OUTSIDE RECORDS SUMMARY | 2025-01-14 12:12 | XMS_ITS | Clinical Summary ---
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 Role Phone Unavailable Primary Care Provider Unavailabl e Social History Tobacco Use Types Packs/Day Years Used Date Smoking Tobacco: Never Assessed Sex and Gender Information Value Date Recorded Sex Assigned at Not on file Legal Sex Male 11:47 AM EST Gender Identity Not on file Sexual Orientation Not on file Plan of Treatment Health Maintenance Due Date Last Done Comments DTaP,Tdap,and Td Vaccines (1 - Tdap) 1965 Pneumococcal Vaccine: 50+ Ye ars (1 of 1 - PCV) 1996 Zoster Vaccines (1 of 2) 1996 RSV Immunization Patients 60 + Years Old [...] patient's age to complete this topic Meningococcal B Vacine Aged Out No lo nger eligible based on patient's age to complete this topic RSV Immunization Patients Un ivanna 20 months Aged Out No longer eligible b ased on patient's age to complete this topic Varicella Vaccines Aged Out No longer eligible based on patient's age to complete this topic
== END 2025-01-14 12:04 | disposition home or self-care (01) ==
PROVIDERS: PCP Internal Medicine; Visit Provider Internal Medicine
DX: E03.9 Hypothyroidism, unspecified (principal)

== ENCOUNTER → 2025-01-14 11:39 | Outpatient (BNVA) | payer MEDICARE, SELFPAY | PROVIDERS: PCP Internal Medicine; Visit Provider Internal Medicine | DX: E03.9 Hypothyroidism, unspecified (principal) | CPT/HCPCS: 96127; 99212 ==

== ENCOUNTER 2025-02-23 10:17 | Outpatient (AMB) | payer MEDICARE, SELFPAY ==
--- NOTE | 2025-02-23 10:20 | A.OFFPC_ITS ---
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 coagulans)) cells PO biotin 1 capsule orally daily; cholecalciferol (vitamin D3) 25 mcg PO DAILY cyclobenzaprine 5 mg PO TID PRN 7 days fexofenadine (Shanique Allergy) 180 mg PO DAILY hydrochlorothiazide 25 mg PO DAILY levothyroxine 75 mcg PO DAILY levothyroxine 88 mcg PO DAILY lorazepam 0.5 mg PO Q6H PRN multivitamin 1 tab PO DAILY omeprazole 20 mg PO DAILY paroxetine HCl 20 mg PO DAILY tamsulosin 0.4 mg PO DAILY Tobacco use date assessed: 02/23/25 Fall risk assessment: No Falls in past year Last assessed Fall Risk: 02/23/25 Dental Screening Dental Screen Date: 02/23/25 Did you have a dental visit in the last 12 months?: Yes Did you have a dental problem in the last 6 months where you did not have access to dental care?: No Was dental information given to patient?: Patient has dentist HPI sciatica pain (R) Transfer from [facility] HPI Details Patient comes in today for evaluation of his recent right-sided sciatica States that he started experiencing a recurrent sharp pain over his right buttock area a few days ago Notes that the pain would radiate slightly down the back of his right thigh up to the mid-thigh area Thinks that his new chair, which he finds (the surface of the chair) to be too hard to sit on, may have triggered his recent symptoms States that he went to a local urgent care center in [place] over the past weekend and was prescribed 800 mg of Ibuprofen to take States that he took the prescribed medication for a couple of days but had to stop as it was causing him to experience abdominal pain after taking it for 2 days, even with food States that the Ibuprofen really did not help much with his right thigh scia katlyn/pain and he would like to see if there is anything else that he can take to help with his symptoms States that he's had no problems with his right hip or lower back in the past and he tries to stay active and exercises and walks regularly; he also goes to the gym to work out regularly whenever he can He denies any headaches or dizziness Denies any chest pains, no SOB No nausea/vomiting, no abdominal pain No change in bowel habits noted [facility] Medical History (Updated 02/23/25 @ 12:59 by Dinesh Yen MD) Enterocutaneous fistula Paroxysmal atrial fibrillation History of prostate cancer History of ischemic colitis Depression Anxiety GERD without esophagitis Acquired hypothyroidism Thromboembolism Surgical History (Updated 02/23/25 @ 12:59 by Dinesh Yen MD) Hx of colonoscopy History of abdominal surgery History of partial thyroidectomy History of ileostomy S/P excision of lipoma History of thyroid nodule History of prostatectomy Family History Father Diabetes Congestive heart failure Mother Diabetes Heart disease Social History Housing: House Alcohol intake: never Patient Tobacco Use Status: Never used Tobacco Tobacco use type: Cigarette e-Cigarette/Vaping Use: Never Used Second Hand Smoke Exposure: No service: No Current occupational status: retired Cognitive needs: No Hearing needs: No Vision needs: Yes Questionnaire PHQ-9 Over the last 2 weeks, how often have you been bothered by any of the following problems? 1. Little interest or pleasure in doing things: not at all 2. Feeling down, depressed, or hopeless: not at all 3. Trouble falling or staying asleep, or sleeping too much: not at all 4. Feeling tired or having little energy: not at all 5. Poor appetite or overeating: not at all 6. Feeling bad about yourself - or that you are a failure or have let yourself or your family down: not at all 7. Trouble concentrating on things, such as reading the newspaper or watching television: not at all 8. Moving or speaking so slowly that other people could have noticed. Or the opposite - being so fidgety or restless that you have been moving around a lot more than usual: not at all 9. Thoughts that you would be better off or of hurting yourself in some way: not at all Total score: 0 Depression Screening Interpretation: Negative (is on Rx for depression) Depression Screening Done: Yes 60627 - PHQ-9 Billing: Yes Source: Developed by Drs. Guero Aiken, Mali Rendon, Rupesh Vargas and colleagues, with an educational zackery from [employer]. Thrive Questionnaire Date Thrive assessed: 02/23/25 I am a: Patient What is your living situation today?: I have a steady place to live Within the past 12 months, did the food you bought not last and you didn't have the money to get more?: Never true Within the past 12 months, did you worry whether your food would run out before you got money to buy more?: Never true Do you have trouble paying for medicines?: No Do you have trouble getting transportation to medical appointments?: No Do you have trouble paying your heating and electricity bill?: No Do you have trouble taking care of your child, family member or friend?: No Do you have trouble with day-to-day activities such as bathing, preparing meals, shopping, managing finances, etc.?: No Are you currently unemployed and looking for a job?: No Are you interested in more education?: No Please select the resources that you would like help with: None Currently or been in a relationship where the following occur: No concerns reported THRIVE Score: 0 AUDIT C Alcohol Use Questionnaire (AUDIT-C) 1. How often do you have a drink containing alcohol?: Never 3. How often do you have six or more drinks on one occasion?: Never Total Score: 0 Score Reviewed/Action Taken: Yes JOSIAS-7 AMB Questionnaire JOSIAS-7 Date JOSIAS - 7 assessed: 02/23/25 Feeling nervous, anxious, or on edge: 0 = Not at all Not being able to stop or control worryin = Not at all Worrying too much about different things: 0 = Not at all Trouble relaxin = Not at all Being so restless that it is hard to sit still: 0 = Not at all Becoming easily annoyed or irritable: 0 = Not at all Feeling afraid as if something awful might happen: 0 = Not at all Total JOSIAS-7 score (0-4 normal; 5-9 mild; 10-14 moderate; 15-21 severe): 0 Source: Developed by Drs. Guero Aiken, Mali Rendon, Rupesh Vargas and colleagues, with an educational zackery from [employer]. JOSIAS-7 Assessment Billing JOSIAS-7 Assessment Tool: JOSIAS-7 Assessment 35121 Review of Systems Const Denies fatigue, Denies fever(s) and Denies headache(s) ENT Denies dysphagia, Denies dizziness, Denies headache(s), Denies neck pain, Denies odynophagia and Denies sore throat Card Denies chest pain, Denies palpitations and Denies dyspnea Resp Denies chest congestion, Denies cough and Denies dyspnea GI Denies abdominal pain (he did have some abdominal pain after taking Ibuprofen for 2 days), Denies constipation, Denies dysphagia, Denies heartburn, Denies diarrhea, Denies nausea, Denies odynophagia and Denies vomiting Denies dysuria, Denies nocturia and Denies urinary frequency Musc Details: (+) recurrent pain over his right buttock area that radiates down the back of his thigh - see HPI Denies back pain and Denies neck pain Skin/Breast Denies rash Neuro Denies dizziness and Denies headache(s) Endo Denies fatigue and Denies palpitations Physical exam (Primary Care) Vital Signs: Last Vital Signs Pulse 94 02/23/25 10:24 BP 130/78 02/23/25 10:24 Pulse Ox 98 02/23/25 10:24 Oxygen Delivery Method Room Air 02/23/25 10:24 BMI result Body Mass Index 20.1 Tobacco/Smoking Status: Tobacco use Status Tobacco use date assessed 02/23/25 02/23/25 10:29 Patient Tobacco Use Status Never used Tobacco 02/23/25 10:21 Tobacco use type Cigarette 02/23/25 10:21 e-Cigarette/Vaping Use Never Used 02/23/25 10:21 PHQ-9: PHQ-9 Score PHQ-9: Total score 0 02/23/25 12:36 Depression Screening Interpretation: Negative (is on Rx for depression) Thrive Assessment: Date of Thrive Assessment Date Thrive assessed 02/23/25 02/23/25 10:29 Currently or been in a relationship where the following occur: No concerns reported Const General: no acute distress and alert Neck Neck: Yes supple and No lymphadenopathy Thyroid: Thyroid normal Resp Auscultation: clear to auscultation bilaterally, no rales and no wheezes Cardio Rate: regular rate Rhythm: regular rhythm Heart sounds: no murmurs GI Palpation (GI): Soft to palpation and nontender Auscultation: normal bowel sounds General: Yes no CVA tenderness Back/Spine/Pelvis Back: no CVA tenderness Thoracic/Lumbar Spine: No lumbar spinal tenderness Pelvis: buttock tenderness on the right and sciatic notch tenderness on the right Skin Rashes: no rashes Extrem General: Yes no clubbing, cyanosis or edema Coding Level of Care Code Est Pt Level 3 (40831) Diagnoses Piriformis syndrome of right side G57.01 Laterality: right Additional Codes JOSIAS-7 Assessment Billing - JOSIAS-7 Assessment Tool: JOSIAS-7 Assessment 63948 ([id number]) PHQ-9 - 06776 - PHQ-9 Billing: Yes ([id number]) Assessment & Plan Assessment & Plan (1) Pyriformis syndrome: Code(s): G57.00 - Lesion of sciatic nerve, unspecified lower limb Category: Medical Qualifiers: Laterality: right Qualified Code(s): G57.01 - Lesion of sciatic nerve, right lower limb Plan: Discussed with patient that his current symptoms are likely due to piriformis syndrome that was triggered by sitting on his hard chair for a length of time that likely aggravated his right piriformis muscle and is now in turn irritating his right sciatic nerve Will send him for some x-rays (lumbar spine and SI joint) for further evaluation and if his x-rays are normal, can consider starting him on a few days of oral prednisone to help relieve or calm down his symptoms but need to be careful with this because of his Hx of hypercoagulable state? and Hx of ischemic colitis Will start him for now on Cyclobenzaprine 5 mg TID PRN only Can also consider referring him to PT if his symptoms persist or progress Plan Follow up in August 2025 Orders: Orders XR hip RT min 2V Today M25.551 - Pain in right hip XR sacroiliac joint min 3V Today M54.31 - Sciatica, right side Medications: New cyclobenzaprine 5 mg PO TID PRN 20 tabs 0RF right sciatica 7 days
[2025-02-23 10:24] VITALS: BP 130/78; PULSE 94; O2SAT 98; BMI 20.1
== END 2025-02-23 11:02 | disposition home or self-care (01) ==
LOC: HO.HMCH 10:18
PROVIDERS: PCP Internal Medicine; Visit Provider Internal Medicine
DX: G57.01 Lesion of sciatic nerve, right lower limb (principal)

== ENCOUNTER 2025-02-23 10:17 | Outpatient (REF) | payer MEDICARE, SELFPAY ==
--- NOTE | ~2025-02-23 | XR_ITS ---
CLINICAL HISTORY: M54.31 - Sciatica, right side 4 views sacroiliac joints Comparison: None Findings No acute fractures. No significant degenerative change. No erosions. Scattered clips in the pelvis with curvilinear presumed enteric contrast within a segment of bowel with suture chains. IMPRESSION: No acute fracture This document has been electronically signed by: Alex Johnston MD on 02/24/2025 19:39:26
--- NOTE | ~2025-02-23 | XR_ITS ---
CLINICAL HISTORY: M25.551 - Pain in right hip 2 view right hip Comparison: None Findings: No acute fracture or dislocation. No significant arthritic change. The soft tissues are unremarkable. IMPRESSION: No acute findings. This document has been electronically signed by: Alex Johnston MD on 02/24/2025 19:36:45
== END 2025-02-23 10:18 | disposition home or self-care (01) ==
LOC: HO.XRAY 10:17
PROVIDERS: PCP Internal Medicine; Visit Provider Internal Medicine
DX: G57.01 Lesion of sciatic nerve, right lower limb (principal); M25.551 Pain in right hip
CPT/HCPCS: 72202; 73502; 96127; 99212

== ENCOUNTER → 2025-02-23 11:19 | Outpatient (BNV) | payer MEDICARE, SELFPAY | PROVIDERS: PCP Internal Medicine; Visit Provider Radiology Diagnostic Radiology | DX: M25.551 Pain in right hip (principal); M54.31 Sciatica, right side | CPT/HCPCS: 72202; 73502 ==

== ENCOUNTER 2025-03-08 15:10 | Outpatient (AMB) | payer MEDICARE, SELFPAY ==
--- NOTE | 2025-03-08 15:30 | A.OFFPC_ITS ---
Vital Signs 03/08/25 15:31 Height 5 ft 10 in Weight 137 lb BMI 19.7 BP 108/70 Blood Pressure Location Lt brachial Position Sitting Pulse 70 Pulse Source Pulse Oximeter Temp Source Temporal Artery Scan Pulse Oximetry (%) 98 Oxygen Delivery Method Room Air Intake Visit Reasons: (L) sciatic pain Feller Machine Operator Required: No Accompanied by: Self / Same As Patient Allergies Gadolinium-Containing Contrast Medi [Gadolinium-Containing Contrast] Adverse Reaction (Mild, Verified 03/08/25 15:38) VOMITING Tobacco use date assessed: 02/23/25 Dental Screening Dental Screen Date: 02/23/25 HPI (L) sciatic pain HPI Details The patient is a 79-year-old male presenting with sciatic nerve pain, which started five weeks ago and is believed to be related to using a new recliner chair. The pain is described as severe and constant, exacerbated by sitting, and likened to torture with a hot knife. This episode is similar to a previous event eight years earlier, during which a cortisone injection successfully alleviated the pain. He has actively pursued relief with various treatments including lidocaine, ibuprofen (800 mg tablets causing gastric upset), tramadol, and prednisone, none of which provided significant relief. The patient reports that the pain allows him to stand and lie down with less discomfort, but remains debilitating when seated. [facility] Medical History Enterocutaneous fistula Paroxysmal atrial fibrillation History of prostate cancer History of ischemic colitis Depression Anxiety GERD without esophagitis Acquired hypothyroidism Thromboembolism Surgical History Hx of colonoscopy History of abdominal surgery History of partial thyroidectomy History of ileostomy S/P excision of lipoma History of thyroid nodule History of prostatectomy Family History Father Diabetes Congestive heart failure Mother Diabetes Heart disease Social History Housing: House Alcohol intake: never Patient Tobacco Use Status: Never used Tobacco Tobacco use type: Cigarette e-Cigarette/Vaping Use: Never Used Second Hand Smoke Exposure: No service: No Current occupational status: retired Cognitive needs: No Hearing needs: No Vision needs: Yes Questionnaire Thrive Questionnaire Date Thrive assessed: 02/23/25 JOSIAS-7 AMB Questionnaire JOSIAS-7 Date JOSIAS - 7 assessed: 02/23/25 Source: Developed by Drs. Guero Aiken, Mali Rendon, Rupesh Vargas and colleagues, with an educational zackery from [employer]. Review of Systems Const Denies headache(s) Eyes Denies loss of vision ENT Denies vertigo, Denies dizziness, Denies headache(s) and Denies sore throat Card Denies chest pain, Denies leg edema and Denies lightheadedness Resp Denies cough, Denies hemoptysis and Denies wheezing GI Denies abdominal pain, Denies melena, Denies constipation, Denies diarrhea and Denies vomiting Denies dysuria, Denies urinary frequency and Denies urinary urgency Musc Denies arthralgias, Denies joint swelling, Denies numbness and Denies tingling Neuro Denies Abnormal speech present, Denies behavioral changes, Denies vertigo, Denies dizziness, Denies headache(s), Denies loss of vision, Denies memory loss, Denies numbness and Denies tingling Psych Denies anxiety, Denies behavioral changes, Denies depression, Denies memory loss and Denies panic attacks Valeriano/Lymph Denies easy bleeding and Denies easy bruising Aller/Immun Denies wheezing Physical exam (Primary Care) Vital Signs: Last Vital Signs Pulse 70 03/08/25 15:31 BP 108/70 03/08/25 15:31 Pulse Ox 98 03/08/25 15:31 Oxygen Delivery Method Room Air 03/08/25 15:31 BMI result Body Mass Index 19.7 Tobacco/Smoking Status: Tobacco use Status Tobacco use date assessed 02/23/25 03/08/25 15:32 Patient Tobacco Use Status Never used Tobacco 03/08/25 15:32 Tobacco use type Cigarette 03/08/25 15:32 e-Cigarette/Vaping Use Never Used 03/08/25 15:32 Thrive Assessment: Date of Thrive Assessment Date Thrive assessed 02/23/25 03/08/25 15:32 Const General: healthy appearing, no acute distress, alert and awake Nutritional Appearance: well nourished Orientation/consciousness: oriented to person, oriented to place and oriented to time HENMT Ears: TM's normal bilaterally General nose exam: Normal nasal mucous membranes and turbinates present Eyes Conjunctivae: conjunctivae normal Sclerae: sclerae normal Pupils: Equal, round and reactive pupils present Neck Neck: Yes no lymphadenopathy and Yes no JVD Thyroid: Thyroid normal Carotids: no bruits Resp Effort & Inspection: normal respiratory effort and not tachypneic Auscultation: no crackles, no rales, no rhonchi and no wheezes Cardio Rate: regular rate Rhythm: regular rhythm Heart sounds: no murmurs and normal S1 and S2 GI Palpation (GI): Soft to palpation, nontender, no hepatomegaly and no splenomegaly Auscultation: normal bowel sounds Skin General skin exam: no rashes or lesions noted and dry skin Neuro General: oriented to person, oriented to place and oriented to time Cranial nerves: Yes Equal, round and reactive pupils present Speech: No Abnormal speech present Gait exam (Neuro): Normal gait present Motor exam (neuro): no tremor noted Extrem Right upper extremity: full ROM Left upper extremity: full ROM Right lower extremity: full ROM; no edema Left lower extremity: full ROM; no edema Psych Mental Status: mental status grossly normal Speech and movement: Normal speech and movement present Affect: normal affect Attitude: cooperative Thought process: Normal thought process present Coding Level of Care Code Est Pt Level 3 (01810) Diagnoses Right sided sciatica M54.31 Assessment & Plan Assessment & Plan (1) Right sided sciatica: Code(s): M54.31 - Sciatica, right side Category: Medical Plan: I discussed with the patient that the primary diagnosis of his symptoms is sciatica, considering the severity of his nerve pain and previous history. Gabapentin was proposed as the next treatment due to its effectiveness in neuropathic pain, specifically for conditions like sciatica. I have explained the possible side effects and the importance of taking this medication as prescribed. Additionally, a referral to a automotive painter helper has been made in case gabapentin does not provide sufficient relief. The referral aims to explore the option of a cortisone injection, a treatment that previously alleviated his pain Orders: Referrals Pain Management Referral M54.31 - Sciatica, right side Medications: New gabapentin 300 mg PO BID 15 days 30 caps 0RF M54.31 - Sciatica, right side Discontinued prednisone Discontinued Reason: Doctor's Order 20 mg PO DAILY 5 days 5 tabs 0RF tramadol Take 1 tablet 1 to 2 times a day ONLY NEEDED for severe pain Discontinued Reason: Doctor's Order 50 mg PO BID 7 days PRN 14 tabs 0RF severe pain
[2025-03-08 15:31] VITALS: BP 108/70; PULSE 70; O2SAT 98; BMI 19.7
--- OUTSIDE RECORDS SUMMARY | 2025-03-08 18:00 | XMS_ITS | Clinical Summary ---
Author Organization [facility] ity Address [address] [place] [address] Care Team Providers Care Lining Setter Name Role Phone Unavailable Primary Care Provider [...] Vaccines (1 of 2) 1996 RSV Immunization Adult Patie nts (1 - 1-dose 75+ series) 2021 COVID-19 [...] age to complete this topic Meningococcal B Vaccine Aged Out No l onger eligible based on patient's age to complete this topic RSV Immunization Patients Un ivanna 20 months Aged Out No longer eligible b ased on patient's age to complete this topic Varicella Vaccines Aged Out No longer eligible based on patient's age to complete this topic
--- OUTSIDE RECORDS SUMMARY | 2025-03-08 18:00 | XMS_ITS | Clinical Summary ---
Author Organization [facility] Address [address] [place] [address] Phone Care Team Providers Care Street Light Servicer Name Role Phone He Babcock MD Primary Care Provider [phone] Allergies Active Allergy Reactions Criticality Noted Date [...] Visit [facility] [address] [place] [address] [place] [address] Andi Ramirez MD [address] [facility] [address] [place] [address] Health Maintenance Due Date Last Done Comments Pneumococcal Vaccine: 65+ Ye ars (1 of 2 - PCV) 1951 Influenza Vaccine (Season Ended) 2025 Hepatitis B Vaccine Aged Out No longe r eligible based on patient's age to complete this topic Insurance [facility] Care Teams Street Light Servicer Relationship Specialty Start Date End Date He Babcock MD [address] [place], [place] PCP - General 12/12/20
== END 2025-03-08 16:10 | disposition home or self-care (01) ==
LOC: HO.HMCH 15:10
PROVIDERS: PCP Internal Medicine; Visit Provider Physician Assistant
DX: M54.31 Sciatica, right side (principal)

== ENCOUNTER → 2025-03-08 15:10 | Outpatient (BNVA) | payer MEDICARE, SELFPAY | PROVIDERS: PCP Internal Medicine; Visit Provider Physician Assistant | DX: M54.31 Sciatica, right side (principal) | CPT/HCPCS: 99212 ==

== ENCOUNTER 2025-03-16 14:53 | Outpatient (AMB) | payer MEDICARE, SELFPAY ==
--- NOTE | 2025-03-16 14:55 | A.OFFVIS_ITS ---
Vital Signs 03/16/25 14:57 Height 5 ft 10 in Weight 138 lb BMI 19.8 BP 143/88 H Blood Pressure Location Lt brachial Position Sitting Pulse 72 Pulse Source Pulse Oximeter Pulse Oximetry (%) 97 Oxygen Delivery Method Room Air Intake Visit Reasons: Sciatica, right side Intake Note: Pain today 09/10 Sheeter Machine Operator Required: No Accompanied by: Self / Same As Patient Allergies Gadolinium-Containing Contrast Medi [Gadolinium-Containing Contrast] Adverse Reaction (Mild, Verified 03/16/25 15:15) VOMITING HPI Comments Details: The patient is a 79-year-old male presenting with chronic right posterior thigh and buttock pain. The pain started 5 weeks ago after he bought and used a hard chair at home. He describes the pain as worsening over the period and states that sitting aggravates the pain after about 10-15 minutes. Walking provides some relief, but prolonged sitting exacerbates his symptoms. He has attempted self-care through exercise with no improvement. Dlgb-clg-vhurxek medications like Ibuprofen and Tylenol in addition to medications like tramadol and gabapentin have not helped, and muscle relaxants were ineffective. The patient denies any back or radicular leg pain, and no injections have been given to date in this area. He practices self-directed exercises regularly and prefers this mode of management for his pain instead of formal physical therapy. Patient also regularly attends gym and lives a very active lifestyle. - Onset and Timing: Began 5 weeks ago after using a hard chair. - Quality and Character: Persistent pain that worsens over time. - Primary Location: Right posterior thigh and right lower buttock. Pronounced tenderness to palpation at the right ischial bursa. - Areas of Radiation: None reported. - Exacerbating Factors: Sitting for more than 10-[address] - Relieving Factors: Walking. - Activities or Functions: Pain limits sitting. - Affect: Severe pain affecting daily well-being; expressed frustration and desperation. - Analgesia: Current usage includes ibuprofen, Tylenol, lidocaine patch, tramadol, and gabapentin, with minimal relief. Discussed trying meloxicam. - Adverse Effects: None noted. - Activities of Daily Living: Impacts sitting; unable to sit for more than 10 minutes without significant pain. - Aberrant Drug Related Behaviors: None reported; patient denies misuse or abuse. [facility] Medical History Enterocutaneous fistula Paroxysmal atrial fibrillation History of prostate cancer History of ischemic colitis Depression Anxiety GERD without esophagitis Acquired hypothyroidism Thromboembolism Surgical History Hx of colonoscopy History of abdominal surgery History of partial thyroidectomy History of ileostomy S/P excision of lipoma History of thyroid nodule History of prostatectomy Family History Father Diabetes Congestive heart failure Mother Diabetes Heart disease Social History Housing: House Alcohol intake: never Patient Tobacco Use Status: Never used Tobacco Tobacco use type: Cigarette e-Cigarette/Vaping Use: Never Used Second Hand Smoke Exposure: No service: No Current occupational status: retired Cognitive needs: No Hearing needs: No Vision needs: Yes Review of Systems Const Details: - Musculoskeletal: Reports posterior thigh and lower buttock pain. Denies back p ain. - Neurological: Denies neuropathy symptoms, bladder or bowel dysfunction or saddle anesthesia. - Psychological: Denies suicidal ideation; reports distress due to pain. All systems reviewed & are unremarkable except as noted in HPI and below Physical Exam General: Appears afebrile. Moderate discomfort due to pain. Alert and oriented. Mood and affect appropriate. Follows and participates in conversation appropriately. Respiratory effort is unlabored. No cough. Able to transition from sit to stand unassisted. Ambulates with bilaterally normal heel strike and toe off. Back/Spine/Pelvis Cervical Spine: normal cervical lordosis, cervical ROM normal and No Cervical spine tenderness Thoracic/Lumbar Spine: thoracic and lumbar spine normal to inspection, No Thoracic/lumbar spine scar(s), Lasegue's sign negative, straight leg raise negative bilaterally, No thoracic spinal tenderness and No lumbar spinal tenderness Pelvis: buttock tenderness (Pronounced tenderness to palpation at the right ischial bursa) on the right and no sciatic notch tenderness Sacroiliac joints: bilaterally nontender Results Reviewed Results Reviewed: XR sacroiliac joint min 3V 02/24/25 CLINICAL HISTORY: M54.31 - Sciatica, right side 4 views sacroiliac joints Comparison: None Findings No acute fractures. No significant degenerative change. No erosions. Scattered clips in the pelvis with curvilinear presumed enteric contrast within a segment of bowel with suture chains. IMPRESSION: No acute fracture XR hip RT min 2V 02/24/25 CLINICAL HISTORY: M25.551 - Pain in right hip 2 view right hip Comparison: None Findings: No acute fracture or dislocation. No significant arthritic change. The soft tissues are unremarkable. IMPRESSION: No acute findings. LUMBAR SPINE, THREE VIEWs 09/28/2011 CLINICAL: Back pain. COMPARISON: None. FINDINGS: Frontal and lateral views of the lumbosacral spine are submitted. There is a mild thoracolumbar dextroscoliosis. A 6 mm retrolisthesis is seen at L1-L2. There is variable disc space narrowing extending from L1-L2 through L4-L5. No acute fracture or spondylolisthesis is seen. There is multi-level spondylosis. The posterior elements are intact. There is bilateral facet arthropathy, most pronounced at L4-L5 and L5-S1. The soft tissue planes are unremarkable. IMPRESSION: 1. There is a mild thoracolumbar dextroscoliosis. 2. There is multi-level degenerative disc disease extending from L1-L2 through L4-L5. 3. No acute fracture or spondylolisthesis is seen. 4. There is multi-level spondylosis. 5. There is bilateral facet arthropathy, most pronounced at L4-L5 and L5-S1. Assessment & Plan Assessment & Plan (1) Ischial bursitis of right side: Code(s): M70.71 - Other bursitis of hip, right hip Category: Medical (2) Myofascial pain on right side: Code(s): M79.18 - Myalgia, other site Category: Medical (3) Posterior pain of right hip: Code(s): M25.551 - Pain in right hip Category: Medical Plan I discussed with the patient the likely diagnosis of right ischial bursitis and tendinopathy contributing to his pain. The strategy for managing the patient's pain centers on non-invasive techniques, including routine stretching and exercise as well as interventional treatment options such as steroid bursa injection. He will be started on meloxicam 15 mg daily for its anti-inflammatory effects, and the patient is instructed to avoid other NSAIDs. An ultrasound-guided right ischial bursa injection is scheduled to provide targeted relief. The patient understands the treatment plan and the rationale for each step. Expectations, risks and benefits were reviewed. All questions and concerns have been answered and patient agreed with the plan. Follow up after injection and sooner as needed. Patient was informed and verbally consented to the use of an ambient scribe for clinic note documentation during this visit. Medications: New meloxicam Take it with food and full glass of water. Avoid other NSAIDs. 15 mg PO DAILY 30 days PRN 30 tabs 0RF pain M70.71 - Other bursitis of hip, right hip Patient Instructions: During the visit, I explained to the patient that his persistent posterior thigh and buttock pain is likely due to ischial bursitis. I discussed the use of meloxicam as a more effective anti-inflammatory option relative to those tried previously, including its potential benefits and associated risks. The patient and I also discussed the planned ischial bursa injection, outlining the use of ultrasound for precise delivery and expected symptomatic relief. I emphasized the importance of coordinating with insurance to expedite approval for the injection. We reviewed the patient?s medication regimen, confirming no aberrant behaviors. I advised on the risks and side effects associated with meloxicam and ensured all questions regarding his treatment were addressed. The patient agreed with the proposed management and consented to scheduled interventions. A follow- up will be arranged to assess response to treatment. Coding Level of Care Code New Pt Level 4 (59013) Diagnoses Ischial bursitis of right side M70.71 Myofascial pain on right side M79.18 Posterior pain of right hip M25.551
[2025-03-16 14:57] VITALS: BP 143/88; PULSE 72; O2SAT 97; BMI 19.8
--- OUTSIDE RECORDS SUMMARY | 2025-03-16 18:09 | XMS_ITS | Clinical Summary ---
Author Organization [facility] Address [address] [place] [address] Phone Care Team Providers Care Jailkeeper Name Role Phone He Babcock MD Primary Care Provider [phone] Allergies Active Allergy Reactions Criticality Noted Date [...] Visit [facility] [address] [place] [phone] Andi Ramirez MD [address] [facility] [address] [place] [address] Health Maintenance Due Date Last Done Comments Pneumococcal Vaccine: 50+ Ye ars (1 of 2 - PCV) 1964 Influenza Vaccine (Season Ended) 2025 Hepatitis B Vaccine Aged Out No longe r eligible based on patient's age to complete this topic Insurance [facility] Care Teams Jailkeeper Relationship Specialty Start Date End Date He Babcock MD [address] [place], [place] PCP - General 12/12/20
--- OUTSIDE RECORDS SUMMARY | 2025-03-16 18:09 | XMS_ITS | Clinical Summary ---
Author Organization [facility] ity Address [address] [place] [address] Care Team Providers Care Tattooer Name Role Phone Unavailable Primary Care Provider [...] - 2023-2 5 season) 2024 Influenza Vaccine (Season Ended) 2025 HIB Vaccines Aged Out No longer eligi [...]
== END 2025-03-16 15:25 | disposition home or self-care (01) ==
LOC: HO.PMC 14:54
PROVIDERS: PCP Internal Medicine; Referring Provider Physician Assistant; Visit Provider Nurse Practitioner Family
DX: M70.71 Other bursitis of hip, right hip (principal); M79.18 Myalgia, other site; M25.551 Pain in right hip
CPT/HCPCS: 99204

== ENCOUNTER → 2025-03-16 14:53 | Outpatient (BNVA) | payer MEDICARE, SELFPAY | PROVIDERS: PCP Internal Medicine; Referring Provider Physician Assistant; Visit Provider Nurse Practitioner Family | DX: M70.71 Other bursitis of hip, right hip (principal); M79.18 Myalgia, other site; M25.551 Pain in right hip | CPT/HCPCS: 99202 ==

== ENCOUNTER 2025-03-19 09:31 | Outpatient (AMB) | payer MEDICARE, SELFPAY ==
--- NOTE | 2025-03-19 09:37 | MHC.OFFVIS ---
Vital Signs 03/19/25 09:39 Height 5 ft 10 in Weight 138 lb BMI 19.8 BP 140/93 H Blood Pressure Location Rt brachial Position Sitting Respiration 16 Pulse 97 Pulse Source Pulse Oximeter Pulse Oximetry (%) 99 Oxygen Delivery Method Room Air Intake Visit Reasons: right Ischial bursa inj w us/per Beth Furnace Firer Required: No Air Control/Anti Air Warfare Officer: Air Control/Anti Air Warfare Officer Present Accompanied by: Maynor Nogueira Allergies Gadolinium-Containing Contrast Medi [Gadolinium-Containing Contrast] Adverse Reaction (Mild, Verified 03/25/25 08:54) VOMITING Medication List - Last Reconciled 03/19/25 by Kayla Gregory LPN Bacillus coagulans (Probiotic (B. coagulans)) cells PO biotin 1 capsule orally daily; cholecalciferol (vitamin D3) 25 mcg PO DAILY cyclobenzaprine 5 mg PO TID PRN 7 days fexofenadine (Shanique Allergy) 180 mg PO DAILY gabapentin 300 mg PO BID 15 days hydrochlorothiazide 25 mg PO DAILY levothyroxine 75 mcg PO DAILY levothyroxine 88 mcg PO DAILY lorazepam 0.5 mg PO Q6H PRN meloxicam 15 mg PO DAILY PRN 30 days multivitamin 1 tab PO DAILY omeprazole 20 mg PO DAILY paroxetine HCl 20 mg PO DAILY prednisone 40 mg (2 x 20 mg) PO DAILY 5 days tamsulosin 0.4 mg PO DAILY HPI HPI right Ischial bursa inj w us/per Beth: Details: History of Present Illness The patient is a 79-year-old male presenting with chronic right buttock pain. This condition has persisted for approximately 6.5 weeks following the use of a new chair that has contributed to the exacerbation. Initially mild, the patient's sciatic pain has progressively intensified, producing continuous discomfort unmitigated by [id number]-[id number] medications. Significantly impacting his daily activities, the patient's pain resembles a prior episode 14 years ago, which spontaneously resolved over time. Discussions during the visit explore the similarities between sciatic pain and possible bursitis, as well as the role of positional adjustments that could offer temporary relief. Overall, the patient's caregiving setup affords management by household modifications despite ongoing difficulties. His narrative provides substantial insight into the chronicity and severity of his current condition, necessitating further probing such as potential imaging to elucidate underlying etiology or mechanical contributions. Pain Description - Onset and Timing: Began 6.5 weeks ago after obtaining a new chair. - Quality and Character: Described as severe discomfort along the sciatic nerve. - Primary Location: Sciatic nerve region. - Areas of Radiation: Not specified. - Exacerbating Factors: Sitting in a hard chair, excessive movement. - Relieving Factors: Lying down on the side. - Interference with Activities: Hindrance in daily movements and overall routine. Physical Exam - Musculoskeletal- Noted discomfort upon palpation in the sciatic region. Results Pain Management - Affect: Pain significantly impacts daily living, potentially affecting mood. - Analgesia: Trial of various unspecified medications, although ineffective. - Adverse Effects: Empty. - Activities of Daily Living: Movement and exercise limited due to pain severity. - Aberrant Drug Related Behaviors: None reported. Procedure - Informed consent obtained - Site lining stamper with chlorprep - 25g needle advanced to ischial bursa under US guidance with patient in lateral ducubitus position - 40mg kenalog with 6 mL ropivacaine 0.25% injected; aspiration negative for heme - Procedure tolerated well; no EBL PFSH Medical History Enterocutaneous fistula Paroxysmal atrial fibrillation History of prostate cancer History of ischemic colitis Depression Anxiety GERD without esophagitis Acquired hypothyroidism Thromboembolism Surgical History Hx of colonoscopy History of abdominal surgery History of partial thyroidectomy History of ileostomy S/P excision of lipoma History of thyroid nodule History of prostatectomy Family History Father Diabetes Congestive heart failure Mother Diabetes Heart disease Social History Housing: House Alcohol intake: never Patient Tobacco Use Status: Never used Tobacco Tobacco use type: Cigarette e-Cigarette/Vaping Use: Never Used Second Hand Smoke Exposure: No service: No Current occupational status: retired Cognitive needs: No Hearing needs: No Vision needs: Yes Physical Exam Vital Signs: Last Vital Signs Pulse 97 03/19/25 09:39 Resp 16 03/19/25 09:39 BP 140/93 H 03/19/25 09:39 Pulse Ox 99 03/19/25 09:39 Oxygen Delivery Method Room Air 03/19/25 09:39 BMI result Body Mass Index 19.8 Assessment & Plan Assessment & Plan (1) Posterior pain of right hip: Code(s): M25.551 - Pain in right hip Category: Medical (2) Ischial bursitis of right side: Code(s): M70.71 - Other bursitis of hip, right hip Category: Medical Plan Plan - Further evaluation of sciatic pain due to its chronic nature and medication inefficacy. - Consider diagnostic imaging when pain is addressed to exclude structural contributions. - Possible therapeutic interventions discussed include tailored exercises. - Ergo recommendations and guidance provided for optimal seating. - Clinical differentiation between sciatica and possible bursitis assessed. Patient was informed and verbally consented to the use of an ambient scribe for clinic note documentation during this visit. Discussion Notes During the consultation, I discussed with the patient that his symptoms are consistent with chronic sciatica, which has not responded to the prior medication regimen. We considered the possible structural origins, possibly to be elucidated by ultrasound imaging. I informed the patient of the differences between sciatica and bursitis and addressed the impact of exercise and rest in managing his condition. We also discussed practical home adjustments, such as using an appropriately cushioned chair to alleviate discomfort when seating. I encouraged him to monitor any notable worsening or persistence of symptoms, especially regarding any episodes of shortness of breath, which were unrelatedly mentioned. Follow-up care and changes were explained to be subject to the findings and alleviation of symptoms. Patient Instructions - Monitor sciatic pain and avoid excessive movements that exacerbate it. - Try to lie down on the affected side for relief. - Avoid using chairs that exacerbate the condition; consider using a cushioned chair. - Notify the clinic if the shortness of breath persists or worsens. - Follow advice regarding exercises only if pain levels allow. - Watch for any improvement or need for further evaluation and contact the office as needed. Medications: New oxycodone Partial Fill upon patient request. 5 mg PO BID PRN 10 tabs 0RF pain Coding Level of Care Code Est Pt Level 4 (96687) Diagnoses Posterior pain of right hip M25.551 Ischial bursitis of right side M70.71
[2025-03-19 09:39] VITALS: BP 140/93; PULSE 97; RESP 16; O2SAT 99; BMI 19.8
--- OUTSIDE RECORDS SUMMARY | 2025-03-19 10:05 | XMS_ITS | Clinical Summary ---
Author Organization [facility] Address [address] [place] [address] Phone Care Team Providers Care Special Educator Name Role Phone He Babcock MD Primary Care Provider [phone] Allergies Active Allergy Reactions Criticality Noted Date [...] Visit [facility] [address] [place] [phone] Andi Ramirez MD [address] [facility] [address] [place] [address] Health Maintenance Due Date Last Done Comments Pneumococcal Vaccine: 50+ Ye ars (1 of 2 - PCV) 1964 Influenza Vaccine (Season Ended) 2025 Hepatitis B Vaccine Aged Out No longe r eligible based on patient's age to complete this topic Insurance [facility] Care Teams Special Educator Relationship Specialty Start Date End Date He Babcock MD [address] [place], [place] PCP - General 12/12/20
--- OUTSIDE RECORDS SUMMARY | 2025-03-19 10:05 | XMS_ITS | Clinical Summary ---
Author Organization [facility] ity Address [address] [place] [address] Care Team Providers Care Mender Knit Goods Name Role Phone Unavailable Primary Care Provider [...]
== END 2025-03-19 09:58 | disposition home or self-care (01) ==
PROVIDERS: PCP Internal Medicine; Visit Provider Internal Medicine
DX: M25.551 Pain in right hip (principal); M70.71 Other bursitis of hip, right hip
CPT/HCPCS: 20611; 99214

== ENCOUNTER → 2025-03-19 09:31 | Outpatient (BNVA) | payer MEDICARE, SELFPAY | PROVIDERS: PCP Internal Medicine; Visit Provider Internal Medicine | DX: M70.71 Other bursitis of hip, right hip (principal); M25.551 Pain in right hip | CPT/HCPCS: 20611; 99212 ==

== ENCOUNTER 2025-03-25 06:06 | Outpatient (REF) | payer MEDICARE, SELFPAY ==
--- NOTE | ~2025-03-25 | FL_ITS ---
EXAMINATION: XR FLUOROSCOPY WITH IMAGES CLINICAL INFORMATION: Pain management injection right hamstrings insertion. COMPARISON: None available. TECHNIQUE: Fluoroscopy provided to: Dr. Cronin Fluoroscopy time: 0.1 minutes DAP: [id number] [id number] Images: 2 FINDINGS: 2 fluoroscopic spot images obtained during injection of the right initial tuberosity. Please refer to the full procedural report for details. FL/FL guidance in treatment room IMPRESSION: Fluoroscopic guidance. Electronically signed by: Young Vo MD 03/26/2025 03:40 PM EDT
--- OUTSIDE RECORDS SUMMARY | 2025-03-25 06:10 | XMS_ITS | Clinical Summary ---
Author Organization [facility] Address [address] [place] [address] Phone Care Team Providers Care Wrapper Selector Name Role Phone He Babcock MD Primary [...] Visit [facility] [address] [place] [phone] Andi Ramirez MD [address] [facility] [address] [place] [address] Health Maintenance Due Date Last Done Comments Pneumococcal Vaccine: 50+ Ye ars (1 of 2 - PCV) 1964 Influenza Vaccine (Season Ended) 2025 Hepatitis B Vaccine Aged Out No longe r eligible based on patient's age to complete this topic Insurance [facility] Care Teams Wrapper Selector Relationship Specialty Start Date End Date He Babcock MD [address] [place], [place] PCP - General 12/12/20
--- OUTSIDE RECORDS SUMMARY | 2025-03-25 06:10 | XMS_ITS | Clinical Summary ---
Author Organization [facility] ity Address [address] [place] [address] Care Team Providers Care Client Integration Manager Name Role Phone Unavailable Primary Care Provider [...]
== END 2025-03-25 06:07 | disposition home or self-care (01) ==
LOC: CF 06:06
PROVIDERS: Visit Provider Internal Medicine
DX: M70.71 Other bursitis of hip, right hip (principal)
CPT/HCPCS: 20610; J2003; J2795; J3301; Q9967

== ENCOUNTER 2025-03-25 08:49 | Outpatient (AMB) | payer MEDICARE, SELFPAY ==
[2025-03-25 08:54] VITALS: BP 138/72; PULSE 71; RESP 16; O2SAT 8
--- NOTE | 2025-03-25 08:54 | MHC.OFFVIS ---
Vital Signs 03/25/25 08:54 03/25/25 09:20 BP 138/72 120/76 Blood Pressure Location Lt brachial Lt brachial Position Sitting Sitting Respiration 16 16 Pulse 71 96 Pulse Source Pulse Oximeter Pulse Oximeter Pulse Oximetry (%) 8 L 97 Oxygen Delivery Method Room Air Room Air Intake Visit Reasons: Right ischioal bursa inj w/ fluoro Rubber Heel And Sole Press Tender Required: No Allergies Gadolinium-Containing Contrast Medi [Gadolinium-Containing Contrast] Adverse Reaction (Mild, Verified 03/25/25 08:54) VOMITING Medication List - Last Reconciled 03/25/25 by Kayla Gregory LPN Bacillus coagulans (Probiotic (B. coagulans)) cells PO biotin 1 capsule orally daily; cholecalciferol (vitamin D3) 25 mcg PO DAILY cyclobenzaprine 5 mg PO TID PRN 7 days fexofenadine (Shanique Allergy) 180 mg PO DAILY gabapentin 300 mg PO BID 15 days hydrochlorothiazide 25 mg PO DAILY levothyroxine 75 mcg PO DAILY levothyroxine 88 mcg PO DAILY lorazepam 0.5 mg PO Q6H PRN meloxicam 15 mg PO DAILY PRN 30 days multivitamin 1 tab PO DAILY omeprazole 20 mg PO DAILY oxycodone 5 mg PO BID PRN paroxetine HCl 20 mg PO DAILY tamsulosin 0.4 mg PO DAILY HPI HPI Right ischioal bursa inj w/ fluoro: Details: Patient presents for scheduled procedure. Denies any recent cough, cold, infection, fever or other significant changes in medical history since last office visit. PFSH Medical History Enterocutaneous fistula Paroxysmal atrial fibrillation History of prostate cancer History of ischemic colitis Depression Anxiety GERD without esophagitis Acquired hypothyroidism Thromboembolism Surgical History Hx of colonoscopy History of abdominal surgery History of partial thyroidectomy History of ileostomy S/P excision of lipoma History of thyroid nodule History of prostatectomy Family History Father Diabetes Congestive heart failure Mother Diabetes Heart disease Social History Housing: House Alcohol intake: never Patient Tobacco Use Status: Never used Tobacco Tobacco use type: Cigarette e-Cigarette/Vaping Use: Never Used Second Hand Smoke Exposure: No service: No Current occupational status: retired Cognitive needs: No Hearing needs: No Vision needs: Yes Physical Exam Vital Signs: Last Vital Signs Pulse 71 03/25/25 08:54 Resp 16 03/25/25 08:54 BP 138/72 03/25/25 08:54 Pulse Ox 8 L 03/25/25 08:54 Oxygen Delivery Method Room Air 03/25/25 08:54 Office Procedures AMB Joint Injection/Aspiration Joint Injection/Aspiration Details: Ischial Bursa Injection, Right After informed written consent was obtained, the patient was placed in the supine position. Pre-procedure oxygen saturation, heart rate, and blood pressure were recorded. The skin was prepped with Chloroprep, and draped in a sterile fashion. With the use of fluroscopy the ischial tuberosity was identified. With a 25-gauge 1.5 hypodermic needle 1% lidocaine was injected subcutaneously over the entry site. A 22-gauge 3.5 spinal needle was then advanced toward the ischial bursa. Once in position, and after negative aspiration, 0.5mL of Omnipaque was injected outlining the bursa followed by injection of 40mg kenalog mixed with 0.25% ropivcaine (4 mL total). There was no evidence of paresthesias throughout needle placement. The stylet was replaced and then the needle was withdrawn. The patient tolerated the procedure well and there was no evidence of procedural complications. The patient was observed in the procedure room for 20 minutes, vitals were stable, and discharged in stable condition. Coding Additional procedure code (CPT) needed Assessment & Plan Assessment & Plan (1) Ischial bursitis of right side: Code(s): M70.71 - Other bursitis of hip, right hip Category: Medical Plan Patient is status post right ischial bursa fluoro guided injection due to lack of response to US guided one last week. Patient tolerated procedure well and was discharged home in stable condition with discharge instructions. All questions were answered. We will follow-up via telephone or in clinic to assess response to therapy. A follow-up appointment was made during today's visit. Orders: Orders FL guidance in treatment room Today M70.71 - Other bursitis of hip, right hip Coding Level of Care Code Procedure Only Diagnoses Ischial bursitis of right side M70.71
--- OUTSIDE RECORDS SUMMARY | 2025-03-25 09:18 | XMS_ITS | Clinical Summary ---
Author Organization [facility] Address [address] [address] [place] [address] Phone Care Team Providers Care Die Casting Machine Maintainer Name Role Phone He Babcock MD Primary Care Provider [phone] Allergies Active Allergy Reactions Criticality Noted Date [...] Visit [facility] [address] [place] [phone] Andi Ramirez MD [address] [facility] [address] [place] [address] Health Maintenance Due Date Last Done Comments Pneumococcal Vaccine: 50+ Ye ars (1 of 2 - PCV) 1964 Influenza Vaccine (Season Ended) 2025 Hepatitis B Vaccine Aged Out No longe r eligible based on patient's age to complete this topic Insurance [facility] Care Teams Die Casting Machine Maintainer Relationship Specialty Start Date End Date He Babcock MD [address] [place], [place] PCP - General 12/12/20
--- OUTSIDE RECORDS SUMMARY | 2025-03-25 09:18 | XMS_ITS | Clinical Summary ---
Author Organization [facility] ity Address [address] [place] [address] Care Team Providers Care Blueprint Trimmer Name Role Phone Unavailable Primary Care Provider [...]
[2025-03-25 09:20] VITALS: BP 120/76; PULSE 96; RESP 16; O2SAT 97
== END 2025-03-25 09:20 | disposition home or self-care (01) ==
LOC: HO.PMCPRC 08:49
PROVIDERS: PCP Internal Medicine; Visit Provider Internal Medicine
DX: M70.71 Other bursitis of hip, right hip (principal)
CPT/HCPCS: 20610; 77002

== ENCOUNTER 2025-04-12 14:43 | Outpatient (AMB) | payer MEDICARE, SELFPAY ==
--- OUTSIDE RECORDS SUMMARY | 2025-04-12 14:46 | XMS_ITS | Clinical Summary ---
Author Organization [facility] Address [address] [place] [address] Phone Care Team Providers Care Territory Account Executive Name Role Phone He Babcock MD Primary Care Provider [phone] Allergies Active Allergy Reactions Criticality Noted Date [...] Visit [facility] [address] [place] [phone] Andi Ramirez MD [address] [facility] [address] [place] [address] Health Maintenance Due Date Last Done Comments Pneumococcal Vaccine: 50+ Ye ars (1 of 2 - PCV) 1964 Influenza Vaccine (Season Ended) 2025 Hepatitis B Vaccine Aged Out No longe r eligible based on patient's age to complete this topic Insurance [facility] Care Teams Territory Account Executive Relationship Specialty Start Date End Date He Babcock MD [address] [place], [place] PCP - General 12/12/20
[2025-04-12 14:55] VITALS: BP 126/80; PULSE 133; O2SAT 96; BMI 19.0
--- NOTE | 2025-04-12 14:55 | MHC.PC.OV ---
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 coagulans)) cells PO biotin 1 capsule orally daily; cholecalciferol (vitamin D3) 25 mcg PO DAILY cyclobenzaprine 5 mg PO TID PRN 7 days diclofenac sodium 1% (Arthritis Pain (diclofenac)) 4 grams topical QID fexofenadine (Shanique Allergy) 180 mg PO DAILY gabapentin 300 mg PO BID 15 days hydrochlorothiazide 25 mg PO DAILY levothyroxine 75 mcg PO DAILY levothyroxine 88 mcg PO DAILY lorazepam 0.5 mg PO Q6H PRN meloxicam 15 mg PO DAILY PRN 30 days multivitamin 1 tab PO DAILY omeprazole 20 mg PO DAILY oxycodone 5 mg PO BID PRN paroxetine HCl 20 mg PO DAILY tamsulosin 0.4 mg PO DAILY Tobacco use date assessed: 04/12/25 Fall risk assessment: No Falls in past year Last assessed Fall Risk: 04/12/25 Dental Screening Dental Screen Date: 04/12/25 Did you have a dental visit in the last 12 months?: Yes Did you have a dental problem in the last 6 months where you did not have access to dental care?: No Was dental information given to patient?: Patient has dentist HPI RT back leg pinch nerve HPI Details Patient comes in today mainly to request for an MRI for his lower back States that he continues to experience recurrent sharp pains over his right buttock area that would radiate slightly down the back of his right thigh to the mid-thigh area States that his right lower back symptoms have been bothering him for over 2 months now He was seen by pain management last month and states that the injection that he received for pain management did nothing at all to help with his pain States that his symptoms have been bothering him long enough that he would now like to get an MRI for further evaluation He denies any other acute complaints or symptoms [facility] Medical History Enterocutaneous fistula Paroxysmal atrial fibrillation History of prostate cancer History of ischemic colitis Depression Anxiety GERD without esophagitis Acquired hypothyroidism Thromboembolism Surgical History Hx of colonoscopy History of abdominal surgery History of partial thyroidectomy History of ileostomy S/P excision of lipoma History of thyroid nodule History of prostatectomy Family History Father Diabetes Congestive heart failure Mother Diabetes Heart disease Social History Housing: House Alcohol intake: never Patient Tobacco Use Status: Never used Tobacco Tobacco use type: Cigarette e-Cigarette/Vaping Use: Never Used Second Hand Smoke Exposure: No service: No Current occupational status: retired Cognitive needs: No Hearing needs: No Vision needs: Yes Questionnaire PHQ-9 Over the last 2 weeks, how often have you been bothered by any of the following problems? 1. Little interest or pleasure in doing things: not at all 2. Feeling down, depressed, or hopeless: not at all 3. Trouble falling or staying asleep, or sleeping too much: not at all 4. Feeling tired or having little energy: not at all 5. Poor appetite or overeating: not at all 6. Feeling bad about yourself - or that you are a failure or have let yourself or your family down: not at all 7. Trouble concentrating on things, such as reading the newspaper or watching television: not at all 8. Moving or speaking so slowly that other people could have noticed. Or the opposite - being so fidgety or restless that you have been moving around a lot more than usual: not at all 9. Thoughts that you would be better off or of hurting yourself in some way: not at all Total score: 0 Depression Screening Interpretation: Negative (is on Rx for depression) Depression Screening Done: Yes 16648 - PHQ-9 Billing: Yes Source: Developed by Drs. Guero Aiken, Mali Rendon, Rupesh Vargas and colleagues, with an educational zackery from [employer] (powering [employer]). Thrive Questionnaire Date Thrive assessed: 04/12/25 I am a: Patient What is your living situation today?: I have a steady place to live Within the past 12 months, did the food you bought not last and you didn't have the money to get more?: Never true Within the past 12 months, did you worry whether your food would run out before you got money to buy more?: Never true Do you have trouble paying for medicines?: No Do you have trouble getting transportation to medical appointments?: No Do you have trouble paying your heating and electricity bill?: No Do you have trouble taking care of your child, family member or friend?: No Do you have trouble with day-to-day activities such as bathing, preparing meals, shopping, managing finances, etc.?: No Are you currently unemployed and looking for a job?: No Are you interested in more education?: No Please select the resources that you would like help with: None Currently or been in a relationship where the following occur: No concerns reported THRIVE Score: 0 AUDIT C Alcohol Use Questionnaire (AUDIT-C) 1. How often do you have a drink containing alcohol?: Never 3. How often do you have six or more drinks on one occasion?: Never Total Score: 0 Score Reviewed/Action Taken: Yes JOSIAS-7 AMB Questionnaire JOSIAS-7 Date JOSIAS - 7 assessed: 04/12/25 Feeling nervous, anxious, or on edge: 0 = Not at all Not being able to stop or control worryin = Not at all Worrying too much about different things: 0 = Not at all Trouble relaxin = Not at all Being so restless that it is hard to sit still: 0 = Not at all Becoming easily annoyed or irritable: 0 = Not at all Feeling afraid as if something awful might happen: 0 = Not at all Total JOSIAS-7 score (0-4 normal; 5-9 mild; 10-14 moderate; 15-21 severe): 0 Source: Developed by Drs. Guero Aiken, Mali Rendon, Rupesh Vargas and colleagues, with an educational zackery from [employer] ([employer]ing [employer]). Review of Systems Const Denies fatigue, Denies fever(s) and Denies headache(s) ENT Denies dysphagia, Denies dizziness, Denies headache(s), Denies neck pain, Denies odynophagia and Denies sore throat Card Denies chest pain, Denies palpitations and Denies dyspnea Resp Denies chest congestion, Denies cough and Denies dyspnea GI Denies abdominal pain, Denies constipation, Denies dysphagia, Denies heartburn, Denies diarrhea, Denies nausea, Denies odynophagia and Denies vomiting Denies difficulty urinating, Denies dysuria, Denies nocturia and Denies urinary frequency Musc Details: (+) recurrent pain over his right buttock area that radiates down the back of his thigh - see HPI for details Reports back pain (over the right lower back) and Denies neck pain Skin/Breast Denies rash Neuro Denies dizziness and Denies headache(s) Endo Denies fatigue and Denies palpitations Physical exam (Primary Care) Vital Signs: Last Vital Signs Pulse 133 H 04/12/25 14:55 BP 126/80 04/12/25 14:55 Pulse Ox 96 04/12/25 14:55 Oxygen Delivery Method Room Air 04/12/25 14:55 BMI result Body Mass Index 19.0 Tobacco/Smoking Status: Tobacco use Status Tobacco use date assessed 04/12/25 04/12/25 14:56 Patient Tobacco Use Status Never used Tobacco 04/12/25 14:56 Tobacco use type Cigarette 04/12/25 14:56 e-Cigarette/Vaping Use Never Used 04/12/25 14:56 PHQ-9: PHQ-9 Score PHQ-9: Total score 0 04/12/25 15:19 Depression Screening Interpretation: Negative (is on Rx for depression) Thrive Assessment: Date of Thrive Assessment Date Thrive assessed 04/12/25 04/12/25 15:04 Currently or been in a relationship where the following occur: No concerns reported Const General: no acute distress and alert Neck Neck: Yes supple and No lymphadenopathy Thyroid: Thyroid normal Resp Auscultation: clear to auscultation bilaterally, no rales and no wheezes Cardio Rate: regular rate Rhythm: regular rhythm Heart sounds: no murmurs GI Palpation (GI): Soft to palpation and nontender Auscultation: normal bowel sounds General: Yes no CVA tenderness Back/Spine/Pelvis Back: no CVA tenderness Thoracic/Lumbar Spine: No lumbar spinal tenderness Pelvis: buttock tenderness on the right and sciatic notch tenderness on the right Skin Rashes: no rashes Extrem General: Yes no clubbing, cyanosis or edema Coding Level of Care Code Est Pt Level 3 (91334) Diagnoses Lumbar back pain with radiculopathy affecting right lower extremity M54.16 Additional Codes PHQ-9 - 25182 - PHQ-9 Billing: Yes ([id number]) Assessment & Plan Assessment & Plan (1) Lumbar back pain with radiculopathy affecting right lower extremity: Code(s): M54.16 - Radiculopathy, lumbar region Category: Medical Plan: Per request, will try sending patient for an MRI of his lumbar spine for further evaluation Plan Follow up as scheduled in July 2025 Orders: Orders MR lumbar spine wo con 04/12/25 M54.16 - Radiculopathy, lumbar region
== END 2025-04-12 15:24 | disposition home or self-care (01) ==
LOC: HO.HMCH 14:44
PROVIDERS: PCP Internal Medicine; Visit Provider Internal Medicine
DX: M54.16 Radiculopathy, lumbar region (principal)

== ENCOUNTER → 2025-04-12 14:43 | Outpatient (BNVA) | payer MEDICARE, SELFPAY | PROVIDERS: PCP Internal Medicine; Visit Provider Internal Medicine | DX: M54.16 Radiculopathy, lumbar region (principal) | CPT/HCPCS: 96127; 99212 ==

== ENCOUNTER → 2025-04-21 07:48 | Outpatient (BNV) | payer MEDICARE, SELFPAY | PROVIDERS: PCP Internal Medicine; Visit Provider Radiology Vascular & Interventional Radiology | DX: M51.16 Intervertebral disc disorders with radiculopathy, lumbar region (principal) | CPT/HCPCS: 72148 ==

== ENCOUNTER 2025-04-21 08:04 | Outpatient (REF) | payer MEDICARE, SELFPAY ==
--- NOTE | ~2025-04-21 | MR_ITS ---
CLINICAL HISTORY: M54.16 - Radiculopathy, lumbar region --- Additional Notes or Special Instructions: NO relief with cortisone injections x 2 under fluoroscopic guidance MR lumbar spine without gadolinium Comparison: None Findings: No fracture or acute malalignment. No suspicious marrow lesion. Minimal retrolisthesis of L1 with respect to L2. The conus terminates normally at L1. Cauda equina are unremarkable. Paravertebral soft tissues are within normal limits. Visualized retroperitoneal structures are unremarkable. Individual levels: L1-L2: Left eccentric disc protrusion. There is moderately severe left neural foraminal narrowing at this level. L2-L3: No significant central canal stenosis. Mild left neural foraminal narrowing. L3-L4: Small broad-based disc protrusion. Mild bilateral neural foraminal narrowing, [id number]. No central canal stenosis. L4-L5: Small broad-based disc protrusion. Moderate right neural foraminal narrowing. No central canal stenosis. L5-S1: Focal right-sided disc protrusion, measuring up to 8 mm in AP dimension. Moderate right neural foraminal narrowing. Additional mass effect upon the descending right-sided S1 nerve root. No significant central canal stenosis. Impression: Moderate chronic changes including a focal disc protrusion at L5-S1 as detailed. This document has been electronically signed by: Adeel Serna MD on 04/21/2025 13:22:50
== END 2025-04-21 08:05 | disposition home or self-care (01) ==
LOC: HO.MRI 08:04
PROVIDERS: PCP Internal Medicine; Visit Provider Internal Medicine
DX: M54.16 Radiculopathy, lumbar region (principal)
CPT/HCPCS: 72148

== ENCOUNTER 2025-04-28 12:57 | Outpatient (AMB) | payer MEDICARE, SELFPAY ==
--- NOTE | 2025-04-28 13:00 | MHC.PC.OV ---
Vital Signs 04/28/25 13:02 Height 5 ft 10 in Weight 135 lb BMI 19.4 BP 120/68 Blood Pressure Location Lt brachial Position Sitting Pulse 136 H Pulse Source Pulse Oximeter Temp 97.3 F Temp Source Temporal Artery Scan Pulse Oximetry (%) 95 Oxygen Delivery Method Room Air Intake Visit Reasons: discuss MRI results Intake Note: Patient is here to follow up on MRI results. 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 coagulans)) cells PO biotin 1 capsule orally daily; cholecalciferol (vitamin D3) 25 mcg PO DAILY cyclobenzaprine 5 mg PO TID PRN 7 days diclofenac sodium 1% (Arthritis Pain (diclofenac)) 4 grams topical QID fexofenadine (Shanique Allergy) 180 mg PO DAILY gabapentin 300 mg PO BID 15 days hydrochlorothiazide 25 mg PO DAILY levothyroxine 88 mcg PO DAILY levothyroxine 75 mcg PO DAILY lorazepam 0.5 mg PO Q6H PRN meloxicam 15 mg PO DAILY PRN 30 days multivitamin 1 tab PO DAILY omeprazole 20 mg PO DAILY oxycodone 5 mg PO BID PRN paroxetine HCl 20 mg PO DAILY tamsulosin 0.4 mg PO DAILY Tobacco use date assessed: 04/28/25 Fall risk assessment: No Falls in past year Last assessed Fall Risk: 04/28/25 Dental Screening Dental Screen Date: 04/12/25 HPI discuss MRI results HPI Details The patient is a 79-year-old male presenting with chronic low back pain. This condition has been ongoing for the past six to eight weeks, marked by a significant increase in severity. The patient initially received cortisone injections, which did not provide any relief and was followed by a worsening of symptoms. The pain is described as burning and excruciating, localized primarily to the back of the leg, affecting his ability to perform daily activities. Despite his active lifestyle, which includes regular exercise, his pain has been debilitating. He has attempted physical therapy exercises independently, which worsened his condition. The patient has undergone an MRI that revealed a lumbar disc protrusion, prompting a referral to a instructional services specialist. He currently experiences inadequate pain control with his current medication regimen and is seeking alternative treatment options. MRI showed that he has: Moderate chronic changes including a focal disc protrusion at L5-S1. Pain management consist of gabapentin 300 mg BID, oxycodone 5 mg bid prn. Reports that he had cortisone shots about 4- 6 weeks ago, The pain is across his right upper posterior thigh is reported that worse than the pain in his lower back. [facility] Medical History Enterocutaneous fistula Paroxysmal atrial fibrillation History of prostate cancer History of ischemic colitis Depression Anxiety GERD without esophagitis Acquired hypothyroidism Thromboembolism Surgical History Hx of colonoscopy History of abdominal surgery History of partial thyroidectomy History of ileostomy S/P excision of lipoma History of thyroid nodule History of prostatectomy Family History Father Diabetes Congestive heart failure Mother Diabetes Heart disease Social History Housing: House Alcohol intake: never Patient Tobacco Use Status: Never used Tobacco Tobacco use type: Cigarette e-Cigarette/Vaping Use: Never Used Second Hand Smoke Exposure: No service: No Current occupational status: retired Cognitive needs: No Hearing needs: No Vision needs: Yes Questionnaire Thrive Questionnaire Date Thrive assessed: 04/12/25 JOSIAS-7 AMB Questionnaire JOSIAS-7 Date JOSIAS - 7 assessed: 04/12/25 Source: Developed by Drs. Guero Aiken, Mali Rendon, Rupesh Vargas and colleagues, with an educational zackery from [employer]. Review of Systems Const Details: - Musculoskeletal: Reports excruciating pain in the lower back radiating to the back of the leg; denies spread to other areas. - Neurological: Denies any new neurological symptoms. - General: Reports increased fatigue related to pain. - Psychological: Expresses frustration and emotional distress due to chronic pain. Reports fatigue (Pain related) and Denies headache(s) Eyes Denies loss of vision ENT Denies vertigo, Denies dizziness, Denies headache(s) and Denies sore throat Card Denies chest pain, Denies leg edema and Denies lightheadedness Resp Denies cough, Denies hemoptysis and Denies wheezing GI Denies abdominal pain, Denies melena, Denies constipation, Denies diarrhea and Denies vomiting Denies dysuria, Denies urinary frequency and Denies urinary urgency Musc Reports arthralgias (Lower back), Denies joint swelling, Denies numbness, Reports radiating pain into limb (Right posterior thigh) and Denies tingling Neuro Denies Abnormal speech present, Denies vertigo, Denies dizziness, Denies headache(s), Denies loss of vision, Denies numbness and Denies tingling Psych Denies anxiety, Reports depression (Pain related) and Denies panic attacks Endo Reports fatigue (Pain related) Valeriano/Lymph Denies easy bleeding and Denies easy bruising Aller/Immun Denies wheezing Physical exam (Primary Care) Vital Signs: Last Vital Signs Temp 97.3 F 04/28/25 13:02 Pulse 136 H 04/28/25 13:02 BP 120/68 04/28/25 13:02 Pulse Ox 95 04/28/25 13:02 Oxygen Delivery Method Room Air 04/28/25 13:02 BMI result Body Mass Index 19.4 Tobacco/Smoking Status: Tobacco use Status Tobacco use date assessed 04/28/25 04/28/25 13:06 Patient Tobacco Use Status Never used Tobacco 04/28/25 13:00 Tobacco use type Cigarette 04/28/25 13:00 e-Cigarette/Vaping Use Never Used 04/28/25 13:00 Thrive Assessment: Date of Thrive Assessment Date Thrive assessed 04/12/25 04/28/25 13:00 Const General: healthy appearing, no acute distress, alert and awake Nutritional Appearance: well nourished Orientation/consciousness: oriented to person, oriented to place and oriented to time HENMT Ears: external ears normal General nose exam: Normal external nose present Eyes Conjunctivae: conjunctivae normal Sclerae: sclerae normal Pupils: Equal, round and reactive pupils present Neck Neck: Yes no lymphadenopathy and Yes no JVD Thyroid: Thyroid normal Carotids: no bruits Resp Effort & Inspection: normal respiratory effort and not tachypneic Auscultation: no crackles, no rales, no rhonchi and no wheezes Cardio Rate: regular rate Rhythm: regular rhythm Heart sounds: no murmurs and normal S1 and S2 GI Palpation (GI): Soft to palpation, nontender, no hepatomegaly and no splenomegaly Auscultation: normal bowel sounds General: Yes no CVA tenderness Back/Spine/Pelvis Back: no CVA tenderness Thoracic/Lumbar Spine: lumbar spinal tenderness Neuro General: oriented to person, oriented to place and oriented to time Cranial nerves: Yes Equal, round and reactive pupils present Speech: No Abnormal speech present Gait exam (Neuro): Normal gait present Extrem Right lower extremity: full ROM and hip/thigh (posterior thigh) Details: tenderness; no edema Left lower extremity: full ROM; no edema Psych Mental Status: mental status grossly normal Speech and movement: Normal speech and movement present Affect: Sad affect present Attitude: cooperative Thought process: Normal thought process present Coding Level of Care Code Est Pt Level 3 (37536) Diagnoses Lumbar back pain with radiculopathy affecting right lower extremity M54.16 Time Spent (min) 29 Assessment & Plan Assessment & Plan (1) Lumbar back pain with radiculopathy affecting right lower extremity: Code(s): M54.16 - Radiculopathy, lumbar region Category: Medical Plan The plan for the patient includes increasing the gabapentin dose to 600 mg, to be taken three times daily as needed for pain management. The patient will continue to await an appointment with the instructional services specialist for further evaluation of the lumbar disc protrusion. He has been advised to monitor for any side effects, particularly fatigue, and to report any concerns. The patient is encouraged to remain as active as possible within the limits of his pain and to utilize the medication to manage his symptoms effectively. Patient was informed and verbally consented to the use of an ambient scribe for clinic note documentation during this visit. Medications: New gabapentin 600 mg PO TID 90 tabs 3RF Discontinued gabapentin Discontinued Reason: Doctor's Order 300 mg PO BID 15 days 30 caps 0RF M54.31 - Sciatica, right side
[2025-04-28 13:02] VITALS: BP 120/68; PULSE 136; TEMP 36.3; O2SAT 95; BMI 19.4
--- OUTSIDE RECORDS SUMMARY | 2025-04-28 13:40 | XMS_ITS | Clinical Summary ---
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
== END 2025-04-28 13:34 | disposition home or self-care (01) ==
LOC: HO.HMCH 12:58
PROVIDERS: PCP Internal Medicine
DX: M54.16 Radiculopathy, lumbar region (principal)

== ENCOUNTER → 2025-04-28 12:57 | Outpatient (BNVA) | payer MEDICARE, SELFPAY | PROVIDERS: PCP Internal Medicine | DX: M54.16 Radiculopathy, lumbar region (principal); M54.31 Sciatica, right side | CPT/HCPCS: 99212 ==

== ENCOUNTER 2025-05-06 13:28 | Outpatient (AMB) | payer MEDICARE, SELFPAY ==
--- NOTE | 2025-05-06 13:31 | A.SPINEOV_ITS ---
Vital Signs 05/06/25 13:35 Height 5 ft 10 in Weight 135 lb BMI 19.4 Intake Visit Reasons: focal disc protusion Intake Note: Mr. Richards is here today c/o low back pain that radiates down the leg disabling him from movement. C Winforms Developer Required: No Allergies Gadolinium-Containing Contrast Medi [Gadolinium-Containing Contrast] Adverse Reaction (Mild, Verified 05/06/25 13:37) VOMITING Physical Exam Vital Signs: BMI result Body Mass Index 19.4 Assessment & Plan Assessment & Plan (1) Lumbar disc herniation: Code(s): M51.26 - Other intervertebral disc displacement, lumbar region Category: Medical Plan Dear Dr Yen, Thank you for referring Mr Richards to our office today. He is a very nice [age]-year-old gentleman who presents for evaluation of a right-sided buttock and posterior thigh pain that started about 3 months ago or so. He does not recall any specific event that would have caused it. The pain is particularly bad if he is trying to sit for any length of time. If he stands up and moves around it seems to be okay but the longer he sits it just becomes agonizing instead shooting down the back of his posterior thigh and is associated with some numbness that goes down into around the posterior aspect of his knee. At 1st he thought this was some kind of injury to the muscle. He ultimately underwent an injection with the pain management team into the hip and that did not help. He has been trialing Tylenol, oxycodone, meloxicam and gabapentin. The gabapentin does give him about 25% relief he reports. He has not yet done any physical therapy. He underwent an MRI showing a herniated disc on the right at L5-S1 and was sent in to see us for evaluation. He is getting to the point where the pain is starting to affect his quality of life and that he can not sit down for any length of time without it flaring up. If he lays down at night seems to be okay. He can actually get up and walk around, it is primarily when he sitting. It starting to drive him crazy . PMH: He is a history of resection of a thyroid nodule, with a subtotal thyroidectomy, history of diverticulitis with colon resection with what sounds like subsequent complications of some sort where he needed multiple subsequent surgeries with an ostomy and then an ostomy reversal. History of a DVT/PE about 10 years ago and was treated temporarily with anticoagulants. History of GERD, basal cell carcinoma sections. History of prostate cancer with prostatectomy. History of depression, anxiety. He denies any problems with heart attacks, strokes, heart disease, liver disease, renal disease. Social hx: He does not smoke cigarettes, but does occasionally smoke marijuana. He does not drink alcohol. Medications: Probiotic, biotin, vitamin D3, cyclobenzaprine, diclofenac topical ointment, Shanique, gabapentin, hydrochlorothiazide, levothyroxine, lorazepam, meloxicam, multivitamin, omeprazole, oxycodone, paroxetine and Flomax Allergies: Please see the [employer] list Physical exam: Awake alert oriented, very anxious, able to demonstrate full strength with normal reflexes in the lower extremities. Positive straight leg raise at about 30 degrees. Imaging review: Lumbar MRI done at [facility] shows multilevel degenerative disc disease, superimposed the right L5-S1 level is a medium size disc herniation compressing the right S1 nerve root. Impression: 79-year-old male presents for evaluation of a right-sided buttock pain radiating down into his hamstring with associated with tingling and numbness behind his knee that is aggravated when he sitting for any length of time. He is able to get up and move around okay, but the longer he sits the more aggravated it gets. It starting to severely affect his quality of life as he can not sit for any length of time. He is okay sleeping. He has been on some basic conservative management including tincture of time, medication trials and even had an injection in his hip before the MRI. I think he is a good candidate for microdiskectomy given that he has a medium-size disc herniation compressing the right S1 nerve root. It seems to fit with the distribution of his pain and the numbness. Unfortunately as we know, his insurance company is going to require physical therapy before we can do surgery so I have given him a referral for that. I did tell him if the pain is escalating with the therapy just to discontinue it and call me. We also discussed the fact that this could just go away on its own if he waits long enough. He is not interested in that option. We did discuss the procedure at length. I will show the images to Dr. Martinez to see if he has any other thoughts and if he agrees that surgery would be reasonable. I gave him a tentative date for June 03 as the amount of pain he is in is making him extremely anxious. That way, if he fails PT, he will already have a surgical date saved. I quoted success rate at 90%. The patient was given risk and benefits of surgery including but not limited to infection, hematoma, nerve injury, durotomy, weakness, bowel/bladder injury, persistent pain, recurrent herniated disc. We also discussed the option to continue with conservative treatment and patient wishes to proceed with surgery. They are aware they should stop NSAIDs 7 days prior to surgery. All questions were answered to the best of our ability. If there is anything about this patients medical history that we have overlooked or concerns you have about us proceeding with surgery we would appreciate any input you can offer Thank you for allowing us to care for your patient. The total time spent with this visit with this patient was 45 minutes reviewing history, physical exam, lumbar imaging review, and implementation of treatment plan or further diagnostic testing Mg Martinez MD,PhD [facility] Orders: Orders PT Evaluation and Treatment Today M51.26 - Other intervertebral disc displacement, lumbar region Coding Level of Care Code New Pt Level 4 (84915) Diagnoses Lumbar disc herniation M51.26
[2025-05-06 13:35] VITALS: BMI 19.4
--- OUTSIDE RECORDS SUMMARY | 2025-05-06 15:53 | XMS_ITS | Clinical Summary ---
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
== END 2025-05-06 14:19 | disposition home or self-care (01) ==
LOC: HO.HNS 13:28
PROVIDERS: PCP Internal Medicine; Referring Provider Internal Medicine; Visit Provider Physician Assistant
DX: M51.26 Other intervertebral disc displacement, lumbar region (principal)
CPT/HCPCS: 99204

== ENCOUNTER → 2025-05-06 13:28 | Outpatient (BNVA) | payer MEDICARE, SELFPAY | PROVIDERS: PCP Internal Medicine; Referring Provider Internal Medicine; Visit Provider Physician Assistant | DX: M51.26 Other intervertebral disc displacement, lumbar region (principal) | CPT/HCPCS: 99202 ==

== ENCOUNTER → 2025-05-19 12:59 | Outpatient (BNV) | payer MEDICARE, SELFPAY | PROVIDERS: PCP Internal Medicine; Visit Provider Internal Medicine Cardiovascular Disease | DX: R94.31 Abnormal electrocardiogram [ECG] [EKG] (principal); Z01.810 Encounter for preprocedural cardiovascular examination | CPT/HCPCS: 93010 ==

== ENCOUNTER 2025-05-20 09:44 | Day surgery (SDC) | payer MEDICARE, SELFPAY ==
--- OUTSIDE RECORDS SUMMARY | 2025-05-07 11:32 | XMS_ITS | Clinical Summary ---
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
--- NOTE | 2025-05-19 09:07 | HO.ANESPROP2 ---
Documented by User: Ida Sanchez NP 05/19/25 09:13 HPI - Anesthesia Eval Consult details Narrative: 79yo M for Right L5-S1 MicroLumbar No recent illness No CP/SOB with regular gym exercise prior to back injury ~ 3 month ago Afib x 1 2013 during C admit for sepsis, critically ill. None since per patient Hx PE/DVT . None since [facility] Active Problems Active Problems: All Active Problems (Updated 05/19/25 @ 09:05 by Ida Sanchez NP) Lumbar disc herniation (Acute) Lumbar back pain with radiculopathy affecting right lower extremity (Acute) Posterior pain of right hip (Acute) Myofascial pain on right side (Acute) Ischial bursitis of right side (Acute) Pyriformis syndrome (Acute) GERD without esophagitis (Acute) Acquired hypothyroidism (Acute) Right sided sciatica (Acute) Depression (Acute) Thromboembolism (Acute) Anxiety (Acute) Physical exam (Acute) Past Medical History Medical History Enterocutaneous fistula Paroxysmal atrial fibrillation History of prostate cancer History of ischemic colitis Depression Anxiety GERD without esophagitis Acquired hypothyroidism Thromboembolism Family History Family History Father Diabetes Congestive heart failure Mother Diabetes Heart disease Surgical History Surgical History Hx of colonoscopy History of abdominal surgery History of partial thyroidectomy History of ileostomy S/P excision of lipoma History of thyroid nodule History of prostatectomy Social History Social History Housing: House Are you a primary reservoir caretaker to a significant other at home: No Do you presently have visiting nurse or other home services: No Alcohol intake: never Patient Tobacco Use Status: Never used Tobacco Tobacco use type: Cigarette e-Cigarette/Vaping Use: Never Used Second Hand Smoke Exposure: No Use of substances other than those prescribed or required for medical reasons: Yes Have you been hit, kicked, punched, or otherwise hurt by someone within the past year? If so, by whom?: No Are you DNR?: No Advance Directives: No Advance Directives Information Provided: Yes Poor oral hygiene: No service: No Current occupational status: retired Cognitive needs: No Hearing needs: No Vision needs: Yes Meds Allergies Allergy/AdvReac Type Severity Reaction Status Date / Time Gadolinium-Containing AdvReac Mild VOMITING Verified 05/20/25 10:12 Contrast Medi (Gadolinium-Containing Contrast) Home Medications ?Medication ?Instructions ?Recorded ?Confirmed ?Last Taken ?Type Bacillus coagulans 10 billion cell cell PO 09/09/20 04/28/25 Unknown History capsule,delayed release (Probiotic (B. coagulans)) lorazepam 0.5 mg tablet 0.5 mg PO Q6H PRN Anxiety 09/09/20 04/28/25 Unknown History multivitamin 1 tab PO DAILY 09/09/20 04/28/25 Unknown History omeprazole 20 mg capsule,delayed 20 mg PO DAILY 09/09/20 04/28/25 Unknown History release cholecalciferol (vitamin D3) 25 25 mcg PO DAILY 03/28/22 04/28/25 Unknown History mcg (1,000 unit) tablet fexofenadine 180 mg tablet 180 mg PO DAILY 03/28/22 04/28/25 Unknown History (Shanique Allergy) hydrochlorothiazide 25 mg tablet 25 mg PO DAILY 03/28/22 04/28/25 Unknown History biotin 10,000 mcg capsule See Rx Instructions .Route .COMPLEX 02/23/25 04/28/25 Unknown History Assessment and Plan Assessment Anesthesia Assessment: Chart Reviewed Documented by User: Summer Gallego MD 05/20/25 10:28 [facility] Past Medical History Medical History Enterocutaneous fistula Paroxysmal atrial fibrillation History of prostate cancer History of ischemic colitis Depression Anxiety GERD without esophagitis Acquired hypothyroidism Thromboembolism Family History Family History Father Diabetes Congestive heart failure Mother Diabetes Heart disease Family history of problems with anesthesia: No Surgical History Surgical History Hx of colonoscopy History of abdominal surgery History of partial thyroidectomy History of ileostomy S/P excision of lipoma History of thyroid nodule History of prostatectomy History of Problems with Anesthesia: No Social History Social History Housing: House Are you a primary reservoir caretaker to a significant other at home: No Do you presently have visiting nurse or other home services: No Alcohol intake: never Patient Tobacco Use Status: Never used Tobacco Tobacco use type: Cigarette e-Cigarette/Vaping Use: Never Used Second Hand Smoke Exposure: No Use of substances other than those prescribed or required for medical reasons: Yes Have you been hit, kicked, punched, or otherwise hurt by someone within the past year? If so, by whom?: No Are you DNR?: No Advance Directives: No Advance Directives Information Provided: Yes Poor oral hygiene: No service: No Current occupational status: retired Cognitive needs: No Hearing needs: No Vision needs: Yes Meds Allergies Allergy/AdvReac Type Severity Reaction Status Date / Time Gadolinium-Containing AdvReac Mild VOMITING Verified 05/20/25 10:12 Contrast Medi (Gadolinium-Containing Contrast) Home Medications ?Medication ?Instructions ?Recorded ?Confirmed ?Last Taken ?Type Bacillus coagulans 10 billion cell cell PO 09/09/20 04/28/25 Unknown History capsule,delayed release (Probiotic (B. coagulans)) lorazepam 0.5 mg tablet 0.5 mg PO Q6H PRN Anxiety 09/09/20 04/28/25 Unknown History multivitamin 1 tab PO DAILY 09/09/20 04/28/25 Unknown History omeprazole 20 mg capsule,delayed 20 mg PO DAILY 09/09/20 04/28/25 Unknown History release cholecalciferol (vitamin D3) 25 25 mcg PO DAILY 03/28/22 04/28/25 Unknown History mcg (1,000 unit) tablet fexofenadine 180 mg tablet 180 mg PO DAILY 03/28/22 04/28/25 Unknown History (Shanique Allergy) hydrochlorothiazide 25 mg tablet 25 mg PO DAILY 03/28/22 04/28/25 Unknown History biotin 10,000 mcg capsule See Rx Instructions .Route .COMPLEX 02/23/25 04/28/25 Unknown History Exam Airway Mallampati Class: II TM Dist: <=3cm Neck ROM: Limited Heart: rrr Lungs: cta Assessment and Plan Assessment Anesthesia Assessment: Anesthesia Plan Discussed Final Anesthetic Review Family History of Problems with Anesthesia: No History of Problems with Anesthesia: No NPO: Yes ASA Class: III Final Preanesthetic Review: No Changes in Pt Med Stat, Meds/Allgs Chart Reviewed, Consent Obtained/Reviewed and Anes Risks/Benef Reviewed Patient Risk: Intermediate Procedure Risk: Intermediate Anesthetic Plan Anesthetic Plan: GA and Agree w/ Assess. and Plan Disposition: Standard PACU
--- NOTE | 2025-05-19 12:59 | ECG_ITS ---
Test Reason : PREOP Blood Pressure : */* mmHG Vent. Rate : 86 BPM Atrial Rate : 86 BPM P-R Int : 150 ms QRS Dur : 66 ms QT Int : 368 ms P-R-T Axes : 85 37 61 degrees QTcB Int : 440 ms Normal sinus rhythm Anterior infarct , age undetermined Abnormal ECG When compared with ECG of 29-Nov-2014 12:13, Anterior infarct is now Present QT has shortened Referred By: Ida Sanchez Electronically Signed By: Antony Almanza
[2025-05-19 13:44] LABS: Hematocrit 40.7 % (42.0-52.0); Hemoglobin 13.4 g/dl (14.0-18.0); Mean Corpuscular HGB Conc 32.9 g/dl (31.0-36.0); Mean Corpuscular Hemoglobin 31.4 pg (27.0-33.0); Mean Corpuscular Volume 95.3 fL (80.0-98.0); Mean Platelet Volume 8.9 fL (9.4-12.4); Platelet Count 329 X10*3/uL (160-400); Red Blood Count 4.27 X10*6/uL (4.60-5.80); Red Cell Distribution Width 13.2 % (11.0-16.0); White Blood Count 9.3 X10*3/uL (4.8-10.8)
[2025-05-19 14:18] LABS: Anion Gap 14 (12-20); Blood Urea Nitrogen 12 mg/dL (9-16); Calcium 9.7 mg/dL (8.4-10.2); Carbon Dioxide 31 mmol/L (22-29); Chloride 101 mmol/L (96-108); Estimated Glomerular Filt Rate > 60; Glucose Random 96 mg/dL (60-115); Potassium 3.7 mmol/L (3.3-5.1); Sodium 142 mmol/L (135-145)
[2025-05-20] VITALS (7 sets, daily range): BP systolic 122–172; BP diastolic 64–85; PULSE 74–99; RESP 12–14; TEMP 36.5–36.7; O2SAT 96–100; BMI 19.9
--- NOTE | ~2025-05-20 | FL_ITS ---
EXAMINATION: XR FLUOROSCOPY WITH IMAGES CLINICAL INFORMATION: L5-S1 decompression COMPARISON: MRI lumbar 04/21/2025 TECHNIQUE: Fluoroscopy provided to: Dr. Martinez Fluoroscopy time: 2.8 seconds DAP: 0.4029 Gycm2 Images: 2 FINDINGS: 2 fluoroscopic spot images obtained of the lumbar spine during L5-S1 decompression. Please refer to the full operative report for details. FL/FL guidance in OR IMPRESSION: Fluoroscopic guidance. Electronically signed by: Young Vo MD 05/20/2025 12:42 PM EDT
[2025-05-20] MEDS: methocarbamoL 750 MG TABLET PO (10:20)
[2025-05-20] MEDS: Gabapentin 300 MG CAPSULE PO (10:20)
[2025-05-20] MEDS: Lactated Ringers 1,000 ML 100 ML IVCONT (10:20)
--- NOTE | 2025-05-20 10:48 | MHC.SHP ---
Pre-Procedural Eval Section A - 24 Hr Update-Section A only Date of Service: 05/20/25 Section B - Complete if H&P > 30 days Chief Complaint: Other intervertebral disc displacement, lumbar reg Details of Present Illness: Right leg pain Allergies: Allergies Allergy/AdvReac Type Severity Reaction Status Date / Time Gadolinium-Containing AdvReac Mild VOMITING Verified 05/20/25 10:12 Contrast Medi (Gadolinium-Containing Contrast) Review of Systems Sugical H&P ROS: Negative: Constitution, Cardiovascular, Respiratory, Neurological, Psychiatric, Hem-Onc, Allergic/Immunologic, Gastrointestinal, Genitourinary, Musculoskeletal, Integumentary, Endocrine and Eyes/Ears/Nose/Throat Exam Surgical H&P Exam: Normal: HEENT, Normal: Heart, Normal: Lungs, Normal: Extremities, Normal: Abdomen, Normal: Skin and Normal: Neurological (Awake, alert) Plan Diagnosis/Plan: Unchanged (Right L5-S1 microdiskectomy) I have reviewed the history and physical and performed a pertinent physical examination on my patient. No changes have occurred unless specified. Time Spent With Patient Time: Total time managing care of this patient today _5___ minutes.
[2025-05-20] MEDS: ceFAZolin Sodium/Dextrose,Iso 2 GM/50 ML PIGGYBACK IV (11:45)
[2025-05-20] MEDS: Acetaminophen 1,000 MG/100 ML PIGGYBACK 400 MG IV (11:45)
--- NOTE | 2025-05-20 12:31 | P.OP_ITS ---
Operative Note Operative Note Date of Service: 05/20/25 Narrative: Preoperative diagnosis: Right S1 radiculopathy due to disc herniation Postoperative diagnosis: Same Procedure: L5-S1 microdiskectomy with microscope Surgeon: Emmanuel Martinez MD, PhD Brush Maker Machine: georgiana Quinones This 79-year-old male suffering from a right S1 radiculopathy due to disc herniation compressing the right S1 nerve root. The patient was offered a L5-S1 microdiskectomy to decompress the nerve root. The procedure complications were explained. The patient was consented. The patient was brought to the operating room and endotracheally intubated. The patient was turned in a prone position on the Giovanni frame. Prepping and draping was done followed by time-out. A mid lumbar incision was made followed by release of the paravertebral muscles on the right side to expose the L5-S1 interspace. An intraoperative x-rays obtained to confirm the correct level. The microscope was brought in. A L5 laminotomy was done followed by opening of the flavum ligament. The S1 nerve root was ident ified and retracted medially to expose the L5-S1 disc space. I could palpate a disc herniation medial from the S1 nerve root, which I carefully removed with a pituitary. The disc space was inspected and any residual disc fragments were removed. This resulted in an excellent decompression of the S1 nerve root. Hemostasis was done. The microscope was removed. Marcaine was injected intramuscularly.The incision was closed in two layers. Steri-Strips used to approximate the incision. An op-site were taken there was used to cover the incision. All sponge and needle counts were correct. Patient was extubated and transported in stable condition to recovery room. this procedure was done with the aid of a physician appeals assistant who performed the initial exposure until the microscope was brought in and performed the closure of the incision. Anesthesia: General Blood loss: 10 mL Complications: None Specimen: None Surgical time: 40 minutes Disposition: Discharge home
--- NOTE | 2025-05-20 12:40 | P.DS_ITS ---
DS: Providers Provider Date of Service: 05/20/25 Date of discharge: 05/20/25 Primary care physician: Dinesh Yen MD DS: Summary Time Attestation Discharge Coordination Time (in mins): 12 Quality: Safe Use of Opioids Does Pt have an Active Cancer Diagnosis on the Problem List?: No Quality: Stroke Does the patient have a stroke diagnosis?: No Physical Exam Vital Signs: Vital Signs: Last Vital Signs Temp 98.1 F 05/20/25 10:15 Pulse 74 05/20/25 10:15 Resp 14 05/20/25 10:15 BP 122/73 05/20/25 10:15 Pulse Ox 100 05/20/25 10:15 O2 Del Method Room Air 05/20/25 10:15 BMI result Body Mass Index 19.9 DS: Data Data Completed and Pending Labs on day of discharge: Laboratory Results - last 24 hr 05/19/25 13:16 WBC 9.3 RBC 4.27 L Hgb 13.4 L Hct 40.7 L MCV 95.3 MCH 31.4 MCHC 32.9 RDW 13.2 Plt Count 329 MPV 8.9 L Absolute Nucleated RBC 0.000 Nucleated RBC % (auto) 0.0 Sodium 142 Potassium 3.7 Chloride 101 Carbon Dioxide 31 H Anion Gap 14 BUN 12 Creatinine 0.83 Estim Creat Clear Calc TNP Estimated GFR > 60 Random Glucose 96 Calcium 9.7 Discharge Plan Discharge Patient Disposition: Home, Self-Care Referrals: Dinesh Yen MD [Primary Care Provider, Internal Medicine] - 1 Week Discharge Medications: New oxycodone 5 mg tablet 5 mg PO Q6H PRN (Reason: pain) Qty: 20 0RF Rx Instructions: Partial Fill upon patient request. Continued tamsulosin 0.4 mg capsule 0.4 mg PO DAILY Qty: 90 0RF paroxetine HCl 20 mg tablet 20 mg PO DAILY Qty: 90 0RF diclofenac sodium [Arthritis Pain (diclofenac)] 1 % gel 4 g topical QID Qty: 100 0RF levothyroxine 88 mcg tablet 88 mcg PO DAILY Qty: 90 0RF lorazepam 0.5 mg tablet 0.5 mg PO Q6H PRN (Reason: Anxiety) omeprazole 20 mg capsule,delayed release(DR/EC) 20 mg PO DAILY multivitamin Tablet 1 tab PO DAILY Probiotic (B. coagulans) 10 billion cell capsule,delayed release(DR/EC) PO hydrochlorothiazide 25 mg tablet 25 mg PO DAILY cholecalciferol (vitamin D3) 25 mcg (1,000 unit) tablet 25 mcg PO DAILY fexofenadine [Shanique Allergy] 180 mg tablet 180 mg PO DAILY biotin 10,000 mcg capsule See Rx Instructions .ROUTE .COMPLEX Rx Instructions: 1 capsule orally daily; gabapentin 600 mg tablet 600 mg PO TID Qty: 90 3RF cyclobenzaprine 5 mg tablet 5 mg PO TID PRN (Reason: right sciatica) 7 Days Qty: 20 0RF Held meloxicam 15 mg tablet 15 mg PO DAILY PRN (Reason: pain ) 30 Days Qty: 30 0RF Hold Instructions: Resume on 05/21/25. Rx Instructions: Take it with food and full glass of water. Avoid other NSAIDs. oxycodone 5 mg tablet 5 mg PO BID PRN (Reason: pain) Qty: 10 0RF Hold Instructions: Resume on 06/03/25. OLD RX Rx Instructions: Partial Fill upon patient request. Discharge Orders: Discharge Order (Routine); Ordered 05/20/25 Ordered By: Alvaro Greco Diet: Advance to usual diet Activity on Discharge: As tolerated Activity Restrictions/Additional Instructions: After your spinal surgery we ask you to observe the following restrictions/guidelines: Activity: It is normal to feel some discomfort as you increase your activity, but that will improve with time. We ask you avoid heavy lifting or acitivities that cause pain. As a general rule, 8lbs is a safe limit for lifting right after surgery. Walk as much as you feel comfortable but not to exhaustion. You will feel extra tired the first few days after surgery. Stay well hydrated. It is OK to walk up and down stairs You may return to driving when you are off narcotics (such as vicodin, oxycodone, dilaudid, etc), and you are back to normal functional capacity. If you have any concerns please check with office before driving. Return to work is specific to each patient and each surgery, so please speak with your doctor/PA at first follow up. Please bring paperwork such as FMLA at that time if you need it filled out. Medications: Please hold your meloxicam until 05/21/25 We recommend you take 1,000mg Tylenol every 8 hours for the first few weeks after surgery, if you do not have any liver issues and can tolerate this medication. Do not exceed 4,000mg daily. We will give you a short supply of narcotics after surgery (usually one weeks worth). If you need more please call the office but do not use more than prescribed. You will need to give our office 48 hours notice if you need narcotics refilled and we do not fill narcotics on weekends or evenings. If you are on a narcotic, it is a good idea to take a stool softener such as colace or senna to avoid constipation If you take blood thinner such as aspirin, Plavix, Coumadin, Effient, Eliquis etc for conditions such as Afib, DVT, Pulmonary embolus, coronary disease, stents etc please speak with your surgeon about specific details as to when you can resume these medications. You can resume NSAIDs on post op day 1 (eg: Motrin, Naproxen, etc). Follow up: Please call the office, , after surgery to arrange a 3 week follow up for wound check. Wound Care: You may remove your dressing on the first day after surgery. ?You may ?leave open to air. Please do not remove the steri strips underneath. they will fall off on their own in one week. IT IS NORMAL FOR THE WOUND TO OOZE OR BE BLOODY FOR A FEW DAYS AFTER SURGERY. ?IF THIS HAPPENS JUST PLACE NEW DRESSING OVER IT TO AVOID STAINING CLOTHES. You may shower on post op day # 1 We ask that you do not let the water soak the wound. If it does get wet, just towel dry lightly. Please do not scrub your incision or place any type of chemical/ointment on the wound. No tub baths, pools or jacuzzis for one month. If you have any leaking or redness from your wound, or fevers, please call the office. Print Language: Zimbabwean
== END 2025-05-20 14:09 | disposition home or self-care (01) ==
PROVIDERS: Nurse Practitioner; PCP Internal Medicine; Visit Provider Neurological Surgery
PROC: (CPT 63030; principal; 2025-05-20 12:00)
DX: M51.26 Other intervertebral disc displacement, lumbar region (principal); M51.16 Intervertebral disc disorders with radiculopathy, lumbar region; R20.0 Anesthesia of skin; R20.2 Paresthesia of skin; E89.0 Postprocedural hypothyroidism; K21.9 Gastro-esophageal reflux disease without esophagitis; Z85.46 Personal history of malignant neoplasm of prostate; Z86.711 Personal history of pulmonary embolism; Z86.718 Personal history of other venous thrombosis and embolism; Z87.19 Personal history of other diseases of the digestive system; Z90.49 Acquired absence of other specified parts of digestive tract; Z79.899 Other long term (current) drug therapy; Z91.041 Radiographic dye allergy status
CPT/HCPCS: 63030; 36415; 80048; 85027; 93005; J0131; J0690; J1100; J1885; J2003; J2405; J2704; J3010

== ENCOUNTER → 2025-05-20 09:44 | Outpatient (BNV) | payer MEDICARE, SELFPAY | PROVIDERS: PCP Internal Medicine; Visit Provider Neurological Surgery | DX: M51.16 Intervertebral disc disorders with radiculopathy, lumbar region (principal) | CPT/HCPCS: 63030; 99499 ==

== ENCOUNTER 2025-05-29 12:06 | Emergency (ER) | payer MEDICARE, SELFPAY ==
--- NOTE | ~2025-05-29 | US_ITS ---
CLINICAL HISTORY: Swelling redness LLE, recent surgery, r o dvt Venous duplex ultrasound left lower extremity Comparison: None provided Findings: Occlusive thrombus is seen within the left femoral, popliteal, posterior tibial, and peroneal veins. The visualized deep veins are otherwise fully compressible with normal Doppler color flow and spectral tracings. No popliteal cyst. IMPRESSION: Left lower extremity DVT. This document has been electronically signed by: Teri Teixeira MD on 05/29/2025 13:49:07
--- NOTE | 2025-05-29 12:17 | ED.GENADULT ---
HPI - General Adult General Chief complaint: Extremity Problem Stated complaint: leg swelling Time Seen by Provider: 05/29/25 12:32 Source: patient Mode of arrival: ambulatory Limitations: no limitations History of Present Illness ED Provider: Kayla Woo PA-C HPI narrative: Patient is a 79 year old assigned male at with a history of RLE DVT, GERD, anxiety, depression, and lumbar disc herniation s/p L5-S1 microdiskectomy with microscope on 05/20/2025 presenting to the emergency department today with left lower leg swelling. Patient states that he had a low back procedure on 05/20/2025 and the next day, his left lower leg became swollen and painful. Patient states that he was concerned it was a blood clot because he had one in his right lower leg that felt similar. Patient denies any dizziness, lightheadedness, abdominal pain, nausea, vomiting, fever, chills, blurry vision, double vision, loss of vision, chest pain, difficulty breathing, shortness of breath, back pain, night sweats, pain with urination, increased urinary frequency, increased urinary urgency, blood in his urine or stool, syncope or a near syncopal episode, recent trauma or falls, bowel incontinence, bladder incontinence, or any other complaints at this time. Onset (ago): day(s) (8 days) Location: left and lower extremity Relieving factors: none Exacerbating factors: none Associated symptoms: denies other symptoms Treatments prior to arrival: none Related Data Home Medications ?Medication ?Instructions ?Recorded ?Confirmed Bacillus coagulans 10 billion cell cell PO 09/09/20 04/28/25 capsule,delayed release (Probiotic (B. coagulans)) lorazepam 0.5 mg tablet 0.5 mg PO Q6H PRN Anxiety 09/09/20 04/28/25 multivitamin 1 tab PO DAILY 09/09/20 04/28/25 omeprazole 20 mg capsule,delayed 20 mg PO DAILY 09/09/20 04/28/25 release cholecalciferol (vitamin D3) 25 25 mcg PO DAILY 03/28/22 04/28/25 mcg (1,000 unit) tablet fexofenadine 180 mg tablet 180 mg PO DAILY 03/28/22 04/28/25 (Shanique Allergy) hydrochlorothiazide 25 mg tablet 25 mg PO DAILY 03/28/22 04/28/25 biotin 10,000 mcg capsule See Rx Instructions .Route .COMPLEX 02/23/25 04/28/25 Previous Rx's ?Medication ?Instructions ?Recorded tamsulosin 0.4 mg capsule 0.4 mg PO DAILY #90 caps 09/10/23 cyclobenzaprine 5 mg tablet 5 mg PO TID PRN right sciatica 7 02/23/25 days #20 tabs paroxetine HCl 20 mg tablet 20 mg PO DAILY #90 tabs 03/08/25 oxycodone 5 mg tablet 5 mg PO BID PRN pain #10 tabs 03/22/25 Held on 05/20/25. Instructions: Resume on 06/03/25. OLD RX diclofenac sodium 1 % topical gel 4 g topical QID pain #100 grams 03/30/25 (Arthritis Pain (diclofenac)) meloxicam 15 mg tablet 15 mg PO DAILY PRN pain 30 days 04/12/25 Held on 05/20/25. #30 tabs Instructions: Resume on 05/21/25. levothyroxine 88 mcg tablet 88 mcg PO DAILY #90 tabs 04/14/25 gabapentin 600 mg tablet 600 mg PO TID #90 tabs 04/28/25 oxycodone 5 mg tablet 5 mg PO Q6H PRN pain #20 tabs 05/20/25 apixaban 5 mg tablet (Eliquis) See Rx Instructions .Route 05/29/25 .COMPLEX #74 tabs Allergies Allergy/AdvReac Type Severity Reaction Status Date / Time Gadolinium-Containing AdvReac Mild VOMITING Verified 05/29/25 12:23 Contrast Medi (Gadolinium-Containing Contrast) Review of Systems Constitutional: Constitutional: Reports no additional constitutional complaints, Denies chills, Denies fever(s) and Denies night sweats Eyes: Eyes: Reports no additional eye complaints, Denies blurry vision, Denies change in vision, Denies diplopia, Denies eye discharge, Denies loss of vision and Denies eye pain ENT: Denies dizziness Cardiovascular: Cardiovascular: Reports no additional cardiovascular complaints, Denies chest pain, Denies lightheadedness, Denies Loss of Consciousness and Denies dyspnea Respiratory: Respiratory: Reports no additional respiratory complaints and Denies dyspnea Gastrointestinal: Gastrointestinal: Reports no additional gastrointestinal complaints, Denies abdominal pain, Denies melena, Denies hematochezia, Denies change in bowel habits and Denies change in stool character Genitourinary: Genitourinary: Reports no additional male genitourinary complaints, Denies hematuria, Denies oliguria, Denies difficulty urinating, Denies dysuria, Denies urinary frequency, Denies urinary hesitancy, Denies urinary incontinence and Denies urinary urgency Musculoskeletal: Musculoskeletal: Reports no additional musculoskeletal complaints, Denies numbness and Denies tingling Comments: left lower leg swelling and pain Neurologic: Denies dizziness, Denies loss of vision, Denies numbness and Denies tingling Psychiatric: Psychiatric: Reports no additional psychiatric complaints Endocrine: Endocrine: Reports no additional endocrine complaints Hematologic/Lymphatic: Hematologic/Lymphatic: Reports no additional hematologic/lymphatic complaints Allergic/Immunologic: Allergic/Immunologic: Reports no additional allergic/immunologic complaints PMF Past Medical History Attestation statement: The following information was validated with the patient. Source: old records reviewed and nursing notes reviewed Medical History Enterocutaneous fistula Paroxysmal atrial fibrillation History of prostate cancer History of ischemic colitis Depression Anxiety GERD without esophagitis Acquired hypothyroidism Thromboembolism Surgical History Hx of colonoscopy History of abdominal surgery History of partial thyroidectomy History of ileostomy S/P excision of lipoma History of thyroid nodule History of prostatectomy Family History Family History Father Diabetes Congestive heart failure Mother Diabetes Heart disease Social History Social History Housing: House Are you a primary primary care sales representative to a significant other at home: No Do you presently have visiting nurse or other home services: No Alcohol intake: never Patient Tobacco Use Status: Never used Tobacco Tobacco use type: Cigarette Smoked in Last 30 Days: No e-Cigarette/Vaping Use: Never Used Second Hand Smoke Exposure: No Use of substances other than those prescribed or required for medical reasons: No Advance Directives: No Advance Directives Information Provided: Yes Do you have a plan to hurt others: No Plan service: No Current occupational status: retired Cognitive needs: No Hearing needs: No Vision needs: Yes Physical Exam ED Vital Signs: Vital Signs - 24 hr 05/29/25 12:21 Temperature 98.5 F Pulse Rate 102 H Respiratory Rate 18 Blood Pressure 118/68 Pulse Oximetry 100 Oxygen Delivery Method Room Air BMI result Body Mass Index 20.0 Const General: cooperative, no acute distress, alert and awake Nutritional Appearance: well nourished Orientation/consciousness: patient oriented x3 HENMT Head: Yes normal to inspection and Yes atraumatic Ears: hearing grossly normal bilaterally and external ears normal General nose exam: Normal external nose present, no nasal discharge noted and no epistaxis Face and sinus: Yes normal facial exam, No abrasion and No laceration Mouth: Normal oral and palatal mucosa present, no drooling and no muffled voice Eyes General: appearance normal, both eyes and all related structures Periorbital: periorbital findings normal Eyelids: Yes eyelids normal Conjunctivae: conjunctivae normal Pupils: Equal, round and reactive pupils present EOM: EOMs intact bilaterally Neck Neck: Yes normal visual inspection, Yes full ROM and Yes no lymphadenopathy Resp Effort & Inspection: normal respiratory effort and able to speak in complete sentences Neuro General: patient oriented x3, moves all extremities and CN's II-XI intact bilaterally Cranial nerves: Yes Equal, round and reactive pupils present Cognition (Neuro): normal cognition Extrem Other: left lower leg swelling - minimal General: Yes full ROM and Yes capillary refill normal Psych Appearance: grossly normal Mental Status: mental status grossly normal Affect: normal affect Attitude: cooperative Thought process: Normal thought process present Thought content: Normal thought content present Insight: Good insight present (Psych) Course Course Course Narrative: Jorge Lynn APRN This is a rapid medical exam. Deferred additional HPI, ROS, PE to primary provider. 79 yo male with history of anxiety, h/o DVT in 2005, HTN, hypothyroidism here with complaints of swelling to left leg swelling since 05/21. Had right L5-S1 microdiskectomy on 05/20/[address] Martinez. Has some erythema and swelling to LLE. No pain, shortness of breath, chest pain, fevers, chills. Will obtain US. VSS Medical Decision Making Medical Decision Making MDM Narrative: Patient is a 79 year old assigned male at with a history of RLE DVT, GERD, anxiety, depression, and lumbar disc herniation s/p L5-S1 microdiskectomy with microscope on 05/20/2025 presenting to the emergency department today with left lower leg swelling. Patient's physical exam was as noted in the physical exam portion of this note. Patient's blood work was unremarkable. Patient's LLE US showed an occlusive thrombus within the left femoral, popliteal, posterior tibial, and peroneal veins. I spoke to the vascular surgeon, Dr. Garcia, who recommended discharging the patient on eliquis and having him follow up on an outpatient basis. I explained my physical exam findings as well as all test results to the patient. I answered all questions asked by the patient. I stressed the importance of the patient taking his medication as directed (either prescribed or as the over the counter packaging recommends). I stressed the importance of the patient following up with his primary care provider. I stressed the importance of the patient returning to the emergency department immediately if his symptoms were to worsen or if he were to develop any dizziness, shortness of breath, difficulty breathing, chest pain, blurry vision, loss of vision, nausea, vomiting, abdominal pain, fever, chills, back pain, or any other complaints. Patient verbalized agreement and understanding with this treatment plan and discharge. Differential Diagnosis Differential Diagnoses: The differential diagnosis associated with the presentation includes Left lower extremity DVT Left lower leg swelling Left lower leg pain Admission/Observation Consideration of admission/observation: Escalation of care including admission/observation considered Patient would have been admitted to the hospital had his work up had any findings where hospital admission was appropriate and his clinical presentation warranted hospital admission. Consult Healthcare Provider Management of the patient was discussed with: Client Resolution Specialist (I spoke to Dr. Garcia as noted in the MDM Rationale portion of this note.) Lab Data [facility] Lab Attestation statement: I reviewed the patient's lab results. My interpretation of these results are in the MDM Rationale portion of this note. 05/29/25 14:12 05/29/25 14:12 Labs: Lab Results 05/29/25 Range/Units 14:12 WBC 10.8 (4.8-10.8) X10*3/uL RBC 4.06 L (4.60-5.80) X10*6/uL Hgb 12.8 L (14.0-18.0) g/dl Hct 38.1 L (42.0-52.0) % MCV 93.8 (80.0-98.0) fL MCH 31.5 (27.0-33.0) pg MCHC 33.6 (31.0-36.0) g/dl RDW 12.9 (11.0-16.0) % Plt Count 373 (160-400) X10*3/uL MPV 8.4 L (9.4-12.4) fL Immature Gran % (Auto) 0.5 H (0.0-0.4) % Neut % (Auto) 74.0 H (45-73) % Lymph % (Auto) 14.1 L (20-40) % Hyde % (Auto) 9.1 (2-11) % Eos % (Auto) 1.6 (0-4) % Baso % (Auto) 0.7 (0-2) % Lymph # (Auto) 1.5 (1.2-4.9) X10*3/uL Hyde # (Auto) 1.0 (0.1-1.2) X10*3/uL Eos # (Auto) 0.2 (0.0-0.4) X10*3/uL Baso # (Auto) 0.1 (0.0-0.2) X10*3/uL Abs Immat Gran (auto) 0.05 H (0.00-0.03) X10*3/uL Absolute Neuts (auto) 8.0 (2.0-8.3) x10*3/uL Absolute Nucleated RBC 0.000 (0.0-0.012) X10*3/uL Nucleated RBC % (auto) 0.0 (0.0-0.2) /100WBC PT 12.0 (10.9-12.4) SEC INR 1.0 (0.9-1.1) Sodium 142 (135-145) mmol/L Potassium 4.5 D (3.3-5.1) mmol/L Chloride 103 (96-108) mmol/L Carbon Dioxide 29 (22-29) mmol/L Anion Gap 15 (12-20) BUN 12 (9-16) mg/dL Creatinine 0.89 (0.5-1.4) mg/dL Estim Creat Clear Calc 59.4 Estimated GFR > 60 Random Glucose 82 (60-115) mg/dL Calcium 9.5 (8.4-10.2) mg/dL Total Bilirubin 0.6 (0.0-1.0) mg/dL AST 21 (5-37) U/L ALT 10 (0-40) U/L Alkaline Phosphatase 67 (39-117) U/L Total Protein 6.7 (6.5-8.0) g/dL Albumin 3.7 (3.5-5.0) g/dL Independent Interpretation I performed an independent interpretation of an: Ultrasound Interpretation: My interpretation is in agreement with the radiologist's impression of this imaging study. ADDENDUMThis document has been electronically signed by: Teri Teixeira MD on 05/29/2025 13:49:07 ADDENDUM: This report was discussed with Kayla Woo PA-C on May 29, 2025 13:51:00 EDT. This document has been electronically signed by: Eunice Braxton on 05/29/2025 13:52:01 Addendum Dictated By: Teri Teixeira MD Addendum Signed By: Electronically signed by Teri Teixeira MD 05/29/25 1253 Addendum Cosigned By: DD/ TD/TT: 05/29/25 CLINICAL HISTORY: Swelling redness LLE, recent surgery, r o dvt Venous duplex ultrasound left lower extremity Comparison: None provided Findings: Occlusive thrombus is seen within the left femoral, popliteal, posterior tibial, and peroneal veins. The visualized deep veins are otherwise fully compressible with normal Doppler color flow and spectral tracings. No popliteal cyst. IMPRESSION: Left lower extremity DVT. This document has been electronically signed by: Teri Teixeira MD on 05/29/2025 13:49:07 Dictated By: Teri Teixeira MD Signed By: Electronically signed by Teri Teixeira MD 05/29/25 [id number] Radiology Impression Discussion of test interpretation with radiology: I have reviewed the radiologist's reading. Critical Care Time Critical Care Time Critical Care Time: Yes Total Critical Care Time: 32 Attestation: I spent 32 minutes of Critical Care Time with this patient. This does not include time spent on separately reported billable procedures. Discharge Plan Discharge Clinical Impression: DVT (deep venous thrombosis) Patient Disposition: Home, Self-Care Instructions: Deep Vein Thrombosis (DC) Additional Instructions: Your ultrasound today of your left lower extremity showed a blood clot. Take your medication as prescribed. You have been on this kind of medication before - remember, you are at an increased risk of bleeding while on these and have to be very careful. Follow up with your primary care provider and the vascular surgeon. Return to the emergency department immediately if your symptoms worsen or if you develop any numbness, tingling, dizziness, shortness of breath, difficulty breathing, chest pain, blurry vision, loss of vision, nausea, vomiting, abdominal pain, fever, chills, back pain, or any other complaints. Please see the information below about our Patient Portal. If you are not yet enrolled in the [facility] Patient Portal, you will receive an enrollment email invitation following your visit to any [facility] care setting. You may also self-enroll in the Patient Portal by visiting our website: [email or web address] The following information is required to access the Patient Portal: - Your [facility] Medical Record Number - Your personal home email address (must match what is in your electronic medical record, Registration staff can assist with this) - Name - Date of Capabilities of the Patient Portal: - Message some providers - View upcoming appointments - Access your health summary, medical history, and visit history - View current conditions and allergies - View procedure and lab results - View your medications, including guidelines, side effects, and precautions - Complete pre-appointment questionnaires requested by your provider - Ready summary reports of your office visits and procedures To access the Patient Portal Mobile [employer], follow these directions: - Search [employer] in the [employer] Store or [employer] Store - Download the Sendy - Search for [facility] - Enter your login/password Prescriptions: New Eliquis 5 mg tablet See Rx Instructions .ROUTE .COMPLEX Qty: 74 0RF Rx Instructions: Take 2 tablets (10 mg) twice a day for 7 days THEN Take 1 tablet (5 mg) twice a day for the remainder of the prescription No Action tamsulosin 0.4 mg capsule 0.4 mg PO DAILY Qty: 90 0RF paroxetine HCl 20 mg tablet 20 mg PO DAILY Qty: 90 0RF diclofenac sodium [Arthritis Pain (diclofenac)] 1 % gel 4 g topical QID Qty: 100 0RF meloxicam 15 mg tablet 15 mg PO DAILY PRN (Reason: pain ) 30 Days Qty: 30 0RF Rx Instructions: Take it with food and full glass of water. Avoid other NSAIDs. levothyroxine 88 mcg tablet 88 mcg PO DAILY Qty: 90 0RF oxycodone 5 mg tablet 5 mg PO Q6H PRN (Reason: pain) Qty: 20 0RF Rx Instructions: Partial Fill upon patient request. lorazepam 0.5 mg tablet 0.5 mg PO Q6H PRN (Reason: Anxiety) omeprazole 20 mg capsule,delayed release(DR/EC) 20 mg PO DAILY multivitamin Tablet 1 tab PO DAILY Probiotic (B. coagulans) 10 billion cell capsule,delayed release(DR/EC) PO hydrochlorothiazide 25 mg tablet 25 mg PO DAILY cholecalciferol (vitamin D3) 25 mcg (1,000 unit) tablet 25 mcg PO DAILY fexofenadine [Shanique Allergy] 180 mg tablet 180 mg PO DAILY biotin 10,000 mcg capsule See Rx Instructions .ROUTE .COMPLEX Rx Instructions: 1 capsule orally daily; oxycodone 5 mg tablet 5 mg PO BID PRN (Reason: pain) Qty: 10 0RF Rx Instructions: Partial Fill upon patient request. gabapentin 600 mg tablet 600 mg PO TID Qty: 90 3RF cyclobenzaprine 5 mg tablet 5 mg PO TID PRN (Reason: right sciatica) 7 Days Qty: 20 0RF Referrals: [facility] V[facility] Services [Provider Group, Vascular Surgery] Referral Note: Call to establish and follow up with a vascular surgeon for your left lower leg DVT. Dinesh Yen MD [Primary Care Provider, Internal Medicine] Print Language: Yakut
[2025-05-29 12:21] VITALS: BP 118/68; PULSE 102; RESP 18; TEMP 36.9; O2SAT 100
--- NOTE | 2025-05-29 13:01 | PC.NURSE ---
Pt with strong, bilateral Doppler DP pulses; Left leg 2ith 1-2+ pitting pedal and ankle edema noted with mild redness and swelling to L welch compared to R; pt denies posterior knee pain or SOB; U/S at bedside for ordered scan
--- OUTSIDE RECORDS SUMMARY | 2025-05-29 14:04 | XMS_ITS | Clinical Summary ---
Author Organization [facility] ity Address [address] [place] [address] Care Team Providers Care Computer Scientist Name Role Phone Unavailable Primary Care Provider [...]
[2025-05-29 14:17] LABS: MANUAL DIFF FLAG NO
[2025-05-29 14:23] LABS: Basophils Absolute Auto 0.1 X10*3/uL (0.0-0.2); Basophils Percent Auto 0.7 % (0-2); Eosinophils Absolute Auto 0.2 X10*3/uL (0.0-0.4); Eosinophils Percent Auto 1.6 % (0-4); Hematocrit 38.1 % (42.0-52.0); Hemoglobin 12.8 g/dl (14.0-18.0); Imm Gran Abs Auto 0.05 X10*3/uL (0.00-0.03); Imm Gran Pct Auto 0.5 % (0.0-0.4); Lymphocytes Absolute Auto 1.5 X10*3/uL (1.2-4.9); Lymphocytes Percent Auto 14.1 % (20-40); Mean Corpuscular HGB Conc 33.6 g/dl (31.0-36.0); Mean Corpuscular Hemoglobin 31.5 pg (27.0-33.0); Mean Corpuscular Volume 93.8 fL (80.0-98.0); Mean Platelet Volume 8.4 fL (9.4-12.4); Monocytes Percent Auto 9.1 % (2-11); Platelet Count 373 X10*3/uL (160-400); Red Blood Count 4.06 X10*6/uL (4.60-5.80); Red Cell Distribution Width 12.9 % (11.0-16.0); White Blood Count 10.8 X10*3/uL (4.8-10.8)
[2025-05-29 14:33] LABS: Alanine Aminotransferase 10 U/L (0-40); Albumin Level 3.7 g/dL (3.5-5.0); Alkaline Phosphatase 67 U/L (39-117); Anion Gap 15 (12-20); Aspartate Amino Transferase 21 U/L (5-37); Bilirubin Total 0.6 mg/dL (0.0-1.0); Blood Urea Nitrogen 12 mg/dL (9-16); Calcium 9.5 mg/dL (8.4-10.2); Carbon Dioxide 29 mmol/L (22-29); Chloride 103 mmol/L (96-108); Creatinine Clr Calc Pharmacy 59.4; Estimated Glomerular Filt Rate > 60; Glucose Random 82 mg/dL (60-115); Potassium 4.5 mmol/L (3.3-5.1); Sodium 142 mmol/L (135-145); Total Protein 6.7 g/dL (6.5-8.0)
[2025-05-29 15:03] VITALS: BP 126/63; PULSE 86; RESP 18; TEMP 36.9; O2SAT 100
[2025-05-29 15:05] VITALS: BP 126/63; PULSE 86; RESP 18; TEMP 36.9; O2SAT 100
== END 2025-05-29 15:07 | disposition home or self-care (01) ==
PROVIDERS: Physician Assistant Medical; Emergency Provider Emergency Medicine; PCP Internal Medicine
DX: I82.4Z2 Acute embolism and thrombosis of unspecified deep veins of left distal lower extremity (principal); R60.0 Localized edema; Z79.899 Other long term (current) drug therapy
CPT/HCPCS: 36415; 80053; 85025; 85610; 93971; 99284

== ENCOUNTER → 2025-05-29 12:22 | Outpatient (BNV) | payer MEDICARE, SELFPAY | PROVIDERS: PCP Internal Medicine; Visit Provider Radiology Diagnostic Radiology | DX: I82.432 Acute embolism and thrombosis of left popliteal vein (principal) | CPT/HCPCS: 93971 ==

== ENCOUNTER 2025-06-08 14:27 | Outpatient (AMB) | payer MEDICARE, SELFPAY ==
--- NOTE | 2025-06-08 14:33 | MHC.OFFVIS ---
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 The patient underwent an L5-S1 microdiscectomy with a microscope on 05/20/2025, performed by Dr. Martinez. Subsequently, he developed leg swelling and was diagnosed with a DVT on 05/29/2025 after presenting to the emergency room. The patient has a history of a right lower extremity blood clot and pulmonary embolism 19 years ago, which resolved without long-term anticoagulation therapy. He reports no family history of blood clots and maintains an active lifestyle, including regular exercise and gym visits. [facility] Medical History Enterocutaneous fistula Paroxysmal atrial fibrillation History of prostate cancer History of ischemic colitis Depression Anxiety GERD without esophagitis Acquired hypothyroidism Thromboembolism Surgical History Hx of colonoscopy History of abdominal surgery History of partial thyroidectomy History of ileostomy S/P excision of lipoma History of thyroid nodule History of prostatectomy Family History Father Diabetes Congestive heart failure Mother Diabetes Heart disease Social History Housing: House Are you a primary child care group leader to a significant other at home: No Do you presently have visiting nurse or other home services: No Alcohol intake: never Patient Tobacco Use Status: Never used Tobacco Tobacco use type: Cigarette e-Cigarette/Vaping Use: Never Used Second Hand Smoke Exposure: No service: No Current occupational status: retired Cognitive needs: No Hearing needs: No Vision needs: Yes Review of Systems Const All systems reviewed & are unremarkable except as noted in HPI and below Reports no additional complaints ENT Reports Normal hearing present Card Denies chest pain, Denies chest pain at rest, Denies chest pain with activity and Denies pedal edema Resp Denies cough GI Denies abdominal pain Musc Denies abnormal gait, Denies muscle cramps and Denies radiating pain into limb Skin/Breast Denies skin ulcer and Denies wounds Neuro Reports Normal hearing present and Denies abnormal gait Psych Reports no additional complaints Physical Exam Vital Signs: BMI result Body Mass Index 19.9 Const General: cooperative, healthy appearing and comfortable Orientation/consciousness: oriented to person, oriented to place and oriented to time HEENT Head: Yes normal to inspection Neck Neck: Yes normal visual inspection Carotids: no bruits Chest Chest palpation & inspection: normal inspection of the chest Resp Effort & Inspection: normal respiratory effort and able to speak in complete sentences Auscultation: clear to auscultation bilaterally, no crackles, no rales, no rhonchi and no wheezes Cardio Rate: regular rate Rhythm: regular rhythm Heart sounds: S1 normal heart sound present and S2 normal heart sound present Bruits: no carotid bruits Peripheral pulses: Peripheral pulses 2+ throughout GI Inspection: Yes normal to inspection Skin Wounds: no wounds Hair: normal Neuro General: oriented to person, oriented to place and oriented to time Cranial nerves: Yes CN's II-XII intact bilaterally and Yes Normal hearing present Cognition (Neuro): normal cognition Motor exam (neuro): 5/5 motor strength present throughout Extrem Other: venous exam: +1 edema left greater than right General: No clubbing, No cyanosis and Yes edema Psych Appearance: grossly normal Mental Status: mental status grossly normal Speech and movement: Normal speech and movement present Results Reviewed Results Reviewed: DVT dated 05/29/2025 left femoral vein popliteal and posterior tibial Assessment & Plan Assessment & Plan (1) Thromboembolism: Comment: (+) history of bilateral pulmonary embolism and DVT - Code(s): I74.9 - Embolism and thrombosis of unspecified artery Category: Medical Plan: In short patient has recurrent DVT. Original event was nearly 19 years ago with right lower extremity DVT and PE. He subsequently has new onset left lower extremity DVT. This may be related to the recent surgery and immobility. He is currently being anticoagulated on Eliquis. This may be cost prohibitive for him. I did discuss with him the possibility of Coumadin. He would need to follow up with his primary care doctor regarding that. I did review imaging and he is not a candidate for thrombectomy. We did discuss routine conservative measures including compression elevation and exercise. He will follow up with us on an as-needed basis. Coding Level of Care Code Est Pt Level 4 (41055) Diagnoses Thromboembolism I74.9
[2025-06-08 14:34] VITALS: BMI 19.9
--- OUTSIDE RECORDS SUMMARY | 2025-06-08 15:20 | XMS_ITS | Clinical Summary ---
Author Organization [facility] Address [address] [place] [address] Phone Care Team Providers Care Decorative Greens Cutter Name Role Phone He Babcock MD Primary Care Provider [phone] Allergies Active Allergy Reactions Criticality Noted Date [...] [facility] [address] [place] [phone] Andi Ramirez MD [address] [facility] [address] [place] [address] Health Maintenance Due Date Last Done Comments Pneumococcal Vaccine: 50+ Ye ars (1 of 2 - PCV) 1964 Influenza Vaccine (#1) 2025 Hepatitis B Vaccine Aged Out No longe r eligible based on patient's age to complete this topic Insurance [facility] Care Teams Decorative Greens Cutter Relationship Specialty Start Date End Date He Babcock MD [address] [place], [place] PCP - General 12/12/20
--- OUTSIDE RECORDS SUMMARY | 2025-06-08 15:20 | XMS_ITS | Patient Health Record ---
Author Organization [facility] Address [address] [place] [address] Care Team Providers Care Inside Sales Trainer Name Role Phone He Babcock MD Primary Care Provider Guero Contreras Unavailable [phone] Reason For Referral No Information Medications Medication SIG (Take, Route, Fr equency, Duration) Notes Start Date End Date Status Naproxen Active immodium Active ASA 325mg qd Active tylenol Active Multivitamin Active Sudafed Active Vitamin B12 Active Questran 4 GM 1 scoop Orally two o r three times a day for diarrhea--use at leat twice a day every day for 30 day(s) Active Paxil Active Chana-Anthony prn Active Questran 4 GM 1 scoop Orally QD-TI D for diarrhea for 30 day(s) 04/27/2016 Active Probiotic Active Metamucil Active Levothyroxine Sodium Active Suphedrine PE PRN Active Problems Problem Type SNOMED Code ICD Code Onset Dates Problem Status W/U Status Risk Notes Problem [id number] Diarrhea, unspecified type (R19.7) Active confirmed Plan Of Treatment No Information Insurance Providers Payer Name Payer Address Payer Phone Subscriber Number Group Number Insured Name Patient Relationship to Insured Coverage Start Date Coverage End Date [facility] [employer] PROFESSIONAL CLAIMS [address] [place] [address] [id number] BHUPENDRA BRUNNER Self - patient is the insured Medical (General) History Medical History History ICD Code Colonoscopy 10-31-2006--negative except for diverticulosis Pulmonary embolus/DVT Prostate cancer Denies [place],DM,CVA,Lung disease,renal dise ase Anxiety Hypothyroidism 2013--Limited colonoscopy vi a his previous stoma and in the rectum with Dr. Turner prior to reversal of his ostomy surgery--the exams are described as negative Surgical History Surgery Date(Month/Year) Radical prostatectomy for prostate cance r Partial thyroidectomy Basal cell tumors( facial) History of multiple abdomina l surgeries with Dr. Turner-- the initial surgery 07/2013 involved a right colectomy and resection of the rectosigmoid colon, with a colostomy from the sigmoid colon, mucous fistula from the transverse colon, and an ileostomy In January,August, and 2013 he had surgeries for reversal of the colostomy and ileostomy, as well as some revisions of the anastamoses.
--- OUTSIDE RECORDS SUMMARY | 2025-06-08 15:20 | XMS_ITS | Clinical Summary ---
Author Organization [facility] ity Address [address] [place] [address] Care Team Providers Care Toolroom Keeper Name Role Phone Unavailable Primary Care Provider [...] - 1-dose 75+ series) 2021 COVID-19 Vaccine (1 - 2023-2 5 season) 2024 Influenza Vaccine (#1) 2025 HIB Vaccines Aged Out No longer [...]
== END 2025-06-08 14:55 | disposition home or self-care (01) ==
LOC: HO.HVS 14:28
PROVIDERS: PCP Internal Medicine; Visit Provider Surgery Vascular Surgery
DX: I74.9 Embolism and thrombosis of unspecified artery (principal)
CPT/HCPCS: 99214

== ENCOUNTER → 2025-06-08 14:27 | Outpatient (BNVA) | payer MEDICARE, SELFPAY | PROVIDERS: PCP Internal Medicine; Visit Provider Surgery Vascular Surgery | DX: I74.9 Embolism and thrombosis of unspecified artery (principal) | CPT/HCPCS: 99212 ==

== ENCOUNTER 2025-06-10 10:31 | Outpatient (AMB) | payer MEDICARE, SELFPAY ==
--- NOTE | 2025-06-10 10:34 | HO.SPINEOV ---
Intake Visit Reasons: 1st post op Intake Note: Mr. Richards is here today for his 1st post op. [employer] Required: No Allergies Gadolinium-Containing Contrast Medi (Gadolinium-Containing Contrast) Adverse Reaction (Mild, Verified 06/10/25 10:37) VOMITING Assessment & Plan Assessment & Plan (1) Thromboembolism: Comment: (+) history of bilateral pulmonary embolism and DVT - Code(s): I74.9 - Embolism and thrombosis of unspecified artery Category: Medical Plan Procedure: Right L5-S1 microdiskectomy Kulwinder is a pleasant 79 year old male who underwent right L5-S1 microdiscectomy on 05/20/25. He had a somewhat complicated postoperative course, and called the clinic x 2 reporting that his left lower extremity was swelling. After I discuss this over the phone with him, I informed him it sounded like it could be a blood clot, especially given his Hx of blood clots. I advised him to seek evaluation in the emergency department / urgent care. He was very frustrated at the time of our conversation (see workload from 05/24). Given this, he did end up going to the ED 2 days later and was diagnosed with a LLE DVT. He is currently taking Eliquis and being followed by vascular surgery and his primary care. Thankfully, Kulwinder reports that his right-sided buttock and posterior thigh pain completely resolved since his surgery. He is very satisfied overall with his surgery, but did disclose obvious frustrations that he developed a DVT after surgery. We discussed how he is likely prone to developing blood clots given his Hx. No new neurological deficits. The patient ambulates well and rises from a seated position without difficulty. His left lower extremity is slightly edematous compared to his right lower extremity, but there is no major deformity/swelling as is sometimes seen with severe DVT cases. His posterior incision site is closed and well healing. There are no signs of erythema or drainage. I would like to follow up with Kulwinder again in 6 weeks for his 2nd postoperative visit. He should continue following up with vascular surgery in his primary care in regards to his DVT. Alvaro Martinez MD,PhD [facility] Coding Level of Care Code Global (74601) Diagnoses Thromboembolism I74.9
--- OUTSIDE RECORDS SUMMARY | 2025-06-10 11:12 | XMS_ITS | Clinical Summary ---
Author Organization [facility] ity Address [address] [place] [address] Care Team Providers Care Consulting Solution Director Name Role Phone Unavailable Primary Care Provider [...]
--- OUTSIDE RECORDS SUMMARY | 2025-06-10 11:12 | XMS_ITS | Patient Health Record ---
Author Organization [facility] Address [address] [place] [address] Care Team Providers Care Differential Repairer Name Role Phone He Babcock MD Primary Care Provider Guero Contreras Unavailable [phone] Reason For Referral No Information Medications Medication [...] day for 30 day(s) Active Paxil Active Chana-[place] prn Active Questran 4 GM 1 scoop Orally QD-TI D for diarrhea for 30 day(s) 04/27/2016 Active Probiotic Active Metamucil Active Levothyroxine Sodium Active Suphedrine PE PRN Active Problems Problem Type SNOMED Code ICD Code Onset Dates Problem Status W/U Status Risk Notes Problem [id number] Diarrhea, unspecified type (R19.7) Active confirmed Plan Of Treatment No Information Insurance Providers Payer Name Payer Address Payer Phone Subscriber Number Group Number Insured Name Patient Relationship to Insured Coverage Start Date Coverage End Date [facility] [employer] PROFESSIONAL CLAIMS [address] [place] [address] [phone] [id number] BHUPENDRA BRUNNER Self - patient is the [...]
--- OUTSIDE RECORDS SUMMARY | 2025-06-10 11:12 | XMS_ITS | Clinical Summary ---
Author Organization [facility] Address [address] [place] [address] Phone Care Team Providers Care Pullman Clerk Name Role Phone He Babcock MD Primary [...] Visit [facility] [address] [place] [phone] Andi Ramirez MD [address] [facility] [address] [place] [address] Health Maintenance Due Date Last Done Comments Pneumococcal Vaccine: 50+ Ye ars (1 of 2 - PCV) 1964 Influenza Vaccine (#1) 2025 Hepatitis B Vaccine Aged Out No longe r eligible based on patient's age to complete this topic Insurance [facility] Care Teams Pullman Clerk Relationship Specialty Start Date End Date He Babcock MD [address] [place], [place] PCP - General 12/12/20
== END 2025-06-10 11:01 | disposition home or self-care (01) ==
LOC: HO.HNS 10:31
PROVIDERS: PCP Internal Medicine; Visit Provider Physician Assistant
DX: I74.9 Embolism and thrombosis of unspecified artery (principal)
CPT/HCPCS: 99024

== ENCOUNTER → 2025-06-10 10:31 | Outpatient (BNVA) | payer MEDICARE, SELFPAY | PROVIDERS: PCP Internal Medicine; Visit Provider Physician Assistant | DX: Z47.89 Encounter for other orthopedic aftercare (principal); I74.9 Embolism and thrombosis of unspecified artery; Z98.890 Other specified postprocedural states | CPT/HCPCS: 99212 ==

== ENCOUNTER 2025-06-18 14:55 | Outpatient (REF) | payer MEDICARE, SELFPAY ==
--- NOTE | ~2025-06-18 | US_ITS ---
EXAMINATION: US LOWER EXTREMITY VEINS LIMITED FOLLOW UP LEFT HISTORY: I82.402 - Acute embolism and thrombosis of unspecified deep veins of left... COMPARISON: There are no prior studies available for comparison. TECHNIQUE: Duplex and color Doppler sonographic examination of the deep venous system of the left lower extremity was performed. FINDINGS: The common femoral vein is patent demonstrating normal compressibility, spontaneous flow, and augmentation. There is noncompressible thrombus in the femoral vein extending from the proximal portion into the calf. US/US venous duplex LE LT IMPRESSION: DVT of the left lower extremity extending from the femoral vein into the calf. Dr. Garcia was notified via [employer] by the pet technologist at 3:37 PM. Electronically signed by: Guero Sorto MD 06/18/2025 03:47 PM EDT
--- OUTSIDE RECORDS SUMMARY | 2025-06-18 14:58 | XMS_ITS | Clinical Summary ---
Author Organization [facility] Address [address] [place] [address] Phone Care Team Providers Care Judo Teacher Name Role Phone He Babcock MD Primary Care Provider [phone] Allergies Active Allergy Reactions Criticality Noted Date [...] [facility] [address] [place] [phone] Andi Ramirez MD [address] [facility] [address] [place] [address] Health Maintenance Due Date Last Done Comments Pneumococcal Vaccine: 50+ Ye ars (1 of 2 - PCV) 1964 Influenza Vaccine (#1) 2025 Hepatitis B Vaccine Aged Out No longe r eligible based on patient's age to complete this topic Insurance [facility] Care Teams Judo Teacher Relationship Specialty Start Date End Date He Babcock MD [address] [place], [place] PCP - General 12/12/20
--- OUTSIDE RECORDS SUMMARY | 2025-06-18 14:58 | XMS_ITS | Patient Health Record ---
Author Organization [facility] Address [address] [place] [address] Care Team Providers Care Tank Cleaning Supervisor Name Role Phone He Babcock MD Primary Care Provider Guero Contreras Unavailable [phone] Reason For Referral No Information Medications Medication [...] day for 30 day(s) Active Paxil Active Chana-[place] prn Active Questran 4 GM 1 scoop Orally QD-TI D for diarrhea for 30 day(s) 04/27/2016 Active Probiotic Active Metamucil Active Levothyroxine Sodium Active Suphedrine PE PRN Active Problems Problem Type SNOMED Code ICD Code Onset Dates Problem Status W/U Status Risk Notes Problem [id number] Diarrhea, unspecified type (R19.7) Active confirmed Plan Of Treatment No Information Insurance Providers Payer Name Payer Address Payer Phone Subscriber Number Group Number Insured Name Patient Relationship to Insured Coverage Start Date Coverage End Date [facility] [employer] PROFESSIONAL CLAIMS [address] [place] [address] [phone] [id number] BHUPENDRA BRUNNER Self - patient is the insured Medical (General) History Medical History History ICD Code Colonoscopy 10-31-2006--negative except for diverticulosis Pulmonary embolus/DVT Prostate cancer Denies [place],DM,CVA,Lung disease,renal dise ase Anxiety Hypothyroidism 2013--Limited colonoscopy [...]
--- OUTSIDE RECORDS SUMMARY | 2025-06-18 14:58 | XMS_ITS | Clinical Summary ---
Author Organization [facility] ity Address [address] [place] [address] Care Team Providers Care Glass Smoother Name Role Phone Unavailable Primary Care Provider [...]
== END 2025-06-18 14:56 | disposition home or self-care (01) ==
LOC: HO.US 14:55
PROVIDERS: Visit Provider Internal Medicine
DX: I82.402 Acute embolism and thrombosis of unspecified deep veins of left lower extremity (principal)
CPT/HCPCS: 93971

== ENCOUNTER → 2025-06-18 14:57 | Outpatient (BNV) | payer MEDICARE, SELFPAY | PROVIDERS: Visit Provider Radiology Diagnostic Radiology | DX: I82.462 Acute embolism and thrombosis of left calf muscular vein (principal) | CPT/HCPCS: 93971 ==

== ENCOUNTER 2025-07-07 09:44 | Outpatient (REF) | payer MEDICARE, SELFPAY ==
--- OUTSIDE RECORDS SUMMARY | 2025-07-07 10:10 | XMS_ITS | Clinical Summary ---
Author Organization [facility] ity Address [address] [place] [address] Care Team Providers Care Clay Maker Name Role Phone Unavailable Primary Care Provider [...] Vaccine (1 - 2023-2 5 season) 2024 Depression Screening 12/02/2024 Influenza Vaccine (#1) 2025 HIB Vaccines Aged [...]
--- OUTSIDE RECORDS SUMMARY | 2025-07-07 10:11 | XMS_ITS | Clinical Summary ---
Author Organization [facility] Address [address] [place] [address] Phone Care Team Providers Care Filing Or Registry Clerk Name Role Phone He Babcock MD Primary Care Provider [phone] Allergies Active Allergy Reactions Criticality Noted Date [...] Care Team (Late st Contact Info) Description 08/12/2025 1:15 PM EDT Office Visit [facility] [address] [place] [phone] Andi Ramirez MD [address] [facility] [address] [place] [address] Health Maintenance Due Date Last Done Comments Pneumococcal Vaccine: 50+ Ye ars (1 of 2 - PCV) 1964 Influenza Vaccine (#1) 2025 Hepatitis B Vaccine Aged Out No longe r eligible based on patient's age to complete this topic Insurance [facility] Care Teams Filing Or Registry Clerk Relationship Specialty Start Date End Date He Babcock MD [address] [place], [place] PCP - General 12/12/20
--- OUTSIDE RECORDS SUMMARY | 2025-07-07 10:11 | XMS_ITS | Patient Health Record ---
Author Organization [facility] Address [address] [place] [address] Care Team Providers Care Box Spring Upholsterer Name Role Phone He Babcock MD Primary Care Provider Guero Contreras Unavailable [phone] Reason For Referral No Information Medications Medication [...] day for 30 day(s) Active Paxil Active Chana-[place] prn Active Questran 4 GM 1 scoop Orally QD-TI D for diarrhea for 30 day(s) 04/27/2016 Active Probiotic Active Metamucil Active Levothyroxine Sodium Active Suphedrine PE PRN Active Problems Problem Type SNOMED Code ICD Code Onset Dates Problem Status W/U Status Risk Notes Problem [id number] Diarrhea, unspecified type (R19.7) Active confirmed Plan Of Treatment No Information Insurance Providers Payer Name Payer Address Payer Phone Subscriber Number Group Number Insured Name Patient Relationship to Insured Coverage Start Date Coverage End Date [facility] [employer] PROFESSIONAL CLAIMS [address] [place] [address] [phone] [id number] BHUPENDRA BRUNNER Self - patient is the insured Medical (General) History Medical History History ICD Code Colonoscopy 10-31-2006--negative except for diverticulosis Pulmonary embolus/DVT Prostate cancer Denies [place],DM,CVA,Lung disease,renal dise ase Anxiety Hypothyroidism 2013--Limited colonoscopy [...]
[2025-07-07 11:41] LABS: Free T4 (Free Thyroxine) 1.42 ng/dL (0.71-1.85); Thyroid Stimulating Hormone 0.85 uIU/mL (0.32-4.0)
[2025-07-07 11:58] LABS: Prostate Specific Antigen < 0.10 ng/mL (<0.05-4.0)
== END 2025-07-07 09:45 | disposition home or self-care (01) ==
LOC: HO.LAB 09:44
PROVIDERS: Absent Provider Physician Assistant; PCP Internal Medicine; Visit Provider Internal Medicine
DX: E03.9 Hypothyroidism, unspecified (principal)
CPT/HCPCS: 36415; 84153; 84439; 84443

== ENCOUNTER 2025-07-09 13:32 | Outpatient (AMB) | payer MEDICARE, SELFPAY ==
--- NOTE | 2025-07-09 13:35 | MHC.PC.OV ---
Vital Signs 07/09/25 13:36 Height 5 ft 9 in Weight 138 lb 8 oz BMI 20.5 BP 120/68 Blood Pressure Location Lt brachial Position Sitting Pulse 84 Pulse Source Pulse Oximeter Temp 97.3 F Temp Source Temporal Artery Scan Pulse Oximetry (%) 98 Oxygen Delivery Method Room Air Intake Visit Reasons: 4 month f/u Intake Note: Patient is here to follow up on GERD, Hypothyroidism. Band Tumbler Required: No Reports Developer: Not Required per policy Accompanied by: Self / Same As Patient Allergies Gadolinium-Containing Contrast Medi (Gadolinium-Containing Contrast) Adverse Reaction (Mild, Verified 07/09/25 13:56) VOMITING Medication List - Last Reconciled 07/09/25 by Dinesh Yen MD apixaban (Eliquis) 5 mg PO BID 90 days Bacillus coagulans (Probiotic (B. coagulans)) cells PO biotin 1 capsule orally daily; cholecalciferol (vitamin D3) 25 mcg PO DAILY fexofenadine (Shanique Allergy) 180 mg PO DAILY hydrochlorothiazide 25 mg PO DAILY levothyroxine 88 mcg PO DAILY lorazepam 0.5 mg PO Q6H PRN multivitamin 1 tab PO DAILY omeprazole 20 mg PO DAILY paroxetine HCl 20 mg PO DAILY tamsulosin 0.4 mg PO DAILY Tobacco use date assessed: 07/09/25 Fall risk assessment: 1 Fall in past year Last assessed Fall Risk: 07/09/25 Dental Screening Dental Screen Date: 04/12/25 HPI 4 month f/u HPI Details Patient comes in today for his follow-up visit States that he feels okay and that his right-sided buttock pain and posterior thigh pain that has been bothering him over the past few months have completely resolved with his L5-S1 microdiskectomy surgeries back in mid May 2025 Patient developed left lower leg DVT a few days after his surgery but this was diagnosed about a week later as he did not go to the emergency room to seek medical care immediately after he was advised by Neurosurgery to do so He is currently on Eliquis 5 mg BID and his left leg swelling and pain have improved significantly since he was started on the medication He denies any headaches or dizziness Denies any chest pains, no increased shortness of breath No nausea/vomiting, no abdominal pain No change in bowel habits noted He denies any acute urinary symptoms Needs his Levothyroxine Rx refilled He had his TFTs rechecked a couple of days ago - would like to know if they came out okay He had his screening colonoscopy done a couple of months ago on 05/14/2025 at [facility] His colonoscopy revealed multiple polyps that came back as tubular adenomas and he was recommended to get a repeat colonoscopy done in 6 months (end of 2024) [facility] Medical History (Updated 07/11/25 @ 05:44 by Dinesh Yen MD) Enterocutaneous fistula Paroxysmal atrial fibrillation History of prostate cancer History of ischemic colitis Depression Anxiety GERD without esophagitis Acquired hypothyroidism Thromboembolism Surgical History (Updated 07/11/25 @ 04:45 by Dinesh Yen MD) Status post lumbar microdiscectomy Hx of colonoscopy History of abdominal surgery History of partial thyroidectomy History of ileostomy S/P excision of lipoma History of thyroid nodule History of prostatectomy Family History Father Diabetes Congestive heart failure Mother Diabetes Heart disease Social History Housing: House Are you a primary child care centre director to a significant other at home: No Do you presently have visiting nurse or other home services: No Alcohol intake: never Patient Tobacco Use Status: Never used Tobacco Tobacco use type: Cigarette e-Cigarette/Vaping Use: Never Used Second Hand Smoke Exposure: No service: No Current occupational status: retired Cognitive needs: No Hearing needs: No Vision needs: Yes Questionnaire Thrive Questionnaire Date Thrive assessed: 04/12/25 JOSIAS-7 AMB Questionnaire JOSIAS-7 Date JOSIAS - 7 assessed: 04/12/25 Source: Developed by Drs. Guero Aiken, Mali Rendon, Rupesh Vargas and colleagues, with an educational zackery from [employer]. Review of Systems Const Denies chills, Denies fatigue, Denies fever(s) and Denies headache(s) ENT Denies dysphagia, Denies dizziness, Denies otalgia, Denies headache(s), Denies neck pain, Denies odynophagia and Denies sore throat Card Denies chest pain, Denies palpitations and Denies dyspnea Resp Denies chest congestion, Denies cough and Denies dyspnea GI Denies abdominal pain, Denies constipation, Denies dysphagia, Denies heartburn, Denies diarrhea, Denies nausea, Denies odynophagia and Denies vomiting Denies difficulty urinating, Denies dysuria, Denies nocturia and Denies urinary frequency Musc Denies back pain and Denies neck pain Skin/Breast Denies rash Neuro Denies dizziness and Denies headache(s) Endo Denies fatigue and Denies palpitations Physical exam (Primary Care) Vital Signs: Last Vital Signs Temp 97.3 F 07/09/25 13:36 Pulse 84 07/09/25 13:36 BP 120/68 07/09/25 13:36 Pulse Ox 98 07/09/25 13:36 Oxygen Delivery Method Room Air 07/09/25 13:36 BMI result Body Mass Index 20.5 Tobacco/Smoking Status: Tobacco use Status Tobacco use date assessed 07/09/25 07/09/25 13:42 Patient Tobacco Use Status Never used Tobacco 07/09/25 13:42 Tobacco use type Cigarette 07/09/25 13:42 e-Cigarette/Vaping Use Never Used 07/09/25 13:42 Thrive Assessment: Date of Thrive Assessment Date Thrive assessed 04/12/25 07/09/25 13:42 Const General: no acute distress and alert HENMT Ears: TM's normal bilaterally and EAC's normal Throat: Yes posterior oropharynx normal and Yes tonsils normal Neck Neck: Yes supple and No lymphadenopathy Thyroid: Thyroid normal Resp Auscultation: clear to auscultation bilaterally, no rales and no wheezes Cardio Rate: regular rate Rhythm: regular rhythm Heart sounds: no murmurs GI Palpation (GI): Soft to palpation and nontender Auscultation: normal bowel sounds General: Yes no CVA tenderness Back/Spine/Pelvis Back: no CVA tenderness Thoracic/Lumbar Spine: No lumbar spinal tenderness Skin Rashes: no rashes Extrem General: Yes no clubbing, cyanosis or edema Results Reviewed Results Reviewed: Laboratory Tests 05/29/25 07/07/25 14:12 09:59 WBC 10.8 Hgb 12.8 L Hct 38.1 L Plt Count 373 Sodium 142 Potassium 4.5 D Creatinine 0.89 Estimated GFR > 60 Random Glucose 82 Calcium 9.5 AST 21 ALT 10 TSH 0.85 Free T4 1.42 Coding Level of Care Code Est Pt Level 4 (85375) Diagnoses Lumbar back pain with radiculopathy affecting right lower extremity M54.16 Acquired hypothyroidism E03.9 GERD without esophagitis K21.9 Deep vein thrombosis (DVT) of left lower extremity, unspecified chronicity, unspecified vein I82.402 Affected thrombotic vein of extremity: unspecified vein of extremity Chronicity: unspecified Anxiety F41.9 Episode of recurrent major depressive disorder, unspecified depression episode severity F33.9 Depression Type: major depressive disorder Major depression recurrence: recurrent Active/Remission status: currently active Major depression episode severity: unspecified Assessment & Plan Assessment & Plan (1) Lumbar back pain with radiculopathy affecting right lower extremity: Code(s): M54.16 - Radiculopathy, lumbar region Category: Medical Plan: S/P L5-S1 microdiscectomy with Dr. Martinez on 05/20/2025, with significant improvement of his symptoms (2) Acquired hypothyroidism: Code(s): E03.9 - Hypothyroidism, unspecified Category: Medical Plan: His TFTs when recently checked a couple of days ago Continue levothyroxine 88 mcg QD We will recheck his labs in 3 months for follow-up (3) GERD without esophagitis: Code(s): K21.9 - Gastro-esophageal reflux disease without esophagitis Category: Medical Plan: Dietary restrictions reinforced Continue omeprazole 20 mg QD (4) Deep vein thrombosis, lower left extremity: Comment: (+) history of bilateral pulmonary embolism and DVT - Code(s): I82.402 - Acute embolism and thrombosis of unspecified deep veins of left lower extremity Category: Medical Qualifiers: Affected thrombotic vein of extremity: unspecified vein of extremity Chronicity: unspecified Qualified Code(s): I82.402 - Acute embolism and thrombosis of unspecified deep veins of left lower extremity Plan: Patient developed DVT of the left lower extremity after his lumbar spine diskectomy Continue Eliquis 5 mg BID (5) Anxiety: Code(s): F41.9 - Anxiety disorder, unspecified Category: Medical Plan: Continue Lorazepam 0.5 mg Q 6 hours PRN and Paroxetine 20 mg QD (6) Depression: Code(s): F32.A - Depression, unspecified Category: Medical Qualifiers: Depression Type: major depressive disorder Major depression recurrence: recurrent Active/Remission status: currently active Major depression episode severity: unspecified Qualified Code(s): F33.9 - Major depressive disorder, recurrent, unspecified Plan: Continue Paroxetine 20 mg QD Plan Follow up in 3 months Orders: Orders Complete Blood Count Auto Diff 3 Months D64.9 - Anemia, unspecified Comprehensive [place]. Panel Fast 3 Months E78.00 - Pure hypercholesterolemia, unspecified Thyroid Stimulating Hormone 3 Months E03.9 - Hypothyroidism, unspecified Vitamin B12 and Folate 3 Months E53.8 - Deficiency of other specified B group vitamins UA CC w/rflx Micro + Cult 3 Months R30.0 - Dysuria Lipid Panel 3 Months E78.00 - Pure hypercholesterolemia, unspecified Free T4 (Free Thyroxine) 3 Months E03.9 - Hypothyroidism, unspecified Vitamin D 25-OH Total 3 Months E55.9 - Vitamin D deficiency, unspecified Medications: Changed From levothyroxine 88 mcg PO DAILY 90 tabs 0RF To levothyroxine 88 mcg PO DAILY 90 tabs 1RF 90 days
[2025-07-09 13:36] VITALS: BP 120/68; PULSE 84; TEMP 36.3; O2SAT 98; BMI 20.5
--- OUTSIDE RECORDS SUMMARY | 2025-07-09 13:37 | XMS_ITS | Clinical Summary ---
Author Organization [facility] ity Address [address] [place] [address] Care Team Providers Care Portrait Studio Photographer Name Role Phone Unavailable Primary Care Provider [...]
--- OUTSIDE RECORDS SUMMARY | 2025-07-09 13:38 | XMS_ITS | Patient Health Record ---
Author Organization [facility] Address [address] [place] [address] Care Team Providers Care Scoop Driver Name Role Phone He Babcock MD Primary Care Provider Guero Contreras Unavailable [phone] Reason For Referral No Information Medications Medication [...] day for 30 day(s) Active Paxil Active Chana-[place] prn Active Questran 4 GM 1 scoop Orally QD-TI D for diarrhea for 30 day(s) 04/27/2016 Active Probiotic Active Metamucil Active Levothyroxine Sodium Active Suphedrine PE PRN Active Problems Problem Type SNOMED Code ICD Code Onset Dates Problem Status W/U Status Risk Notes Problem [id number] Diarrhea, unspecified type (R19.7) Active confirmed Plan Of Treatment No Information Insurance Providers Payer Name Payer Address Payer Phone Subscriber Number Group Number Insured Name Patient Relationship to Insured Coverage Start Date Coverage End Date [facility] [employer] PROFESSIONAL CLAIM[employer] [address] [place] [address] [id number] BHUPENDRA BRUNNER Self - patient is the insured Medical (General) History Medical History History ICD Code Colonoscopy 10-31-2006--negative except for diverticulosis Pulmonary embolus/DVT Prostate cancer Denies [place],DM,CVA,Lung disease,renal dise ase Anxiety Hypothyroidism 2013--Limited colonoscopy [...]
--- OUTSIDE RECORDS SUMMARY | 2025-07-09 13:38 | XMS_ITS | Clinical Summary ---
Author Organization [facility] Address [address] [place] [address] Phone Care Team Providers Care Soil Field Technician Name Role Phone He Babcock MD Primary Care Provider [phone] Allergies Active Allergy Reactions Criticality Noted Date [...] Visit [facility] [address] [place] [phone] Andi Ramirez MD [address] [facility] [address] [place] [address] Health Maintenance Due Date Last Done Comments Pneumococcal Vaccine: 50+ Ye ars (1 of 2 - PCV) 1964 Influenza Vaccine (#1) 2025 Hepatitis B Vaccine Aged Out No longe r eligible based on patient's age to complete this topic Insurance [facility] Care Teams Soil Field Technician Relationship Specialty Start Date End Date He Babcock MD [address] [place], [place] PCP - General 12/12/20
== END 2025-07-09 14:03 | disposition home or self-care (01) ==
LOC: HO.HMCH 13:33
PROVIDERS: PCP Internal Medicine; Visit Provider Internal Medicine
DX: M54.16 Radiculopathy, lumbar region (principal); E03.9 Hypothyroidism, unspecified; K21.9 Gastro-esophageal reflux disease without esophagitis; I82.402 Acute embolism and thrombosis of unspecified deep veins of left lower extremity; F41.9 Anxiety disorder, unspecified; F33.9 Major depressive disorder, recurrent, unspecified

== ENCOUNTER → 2025-07-09 13:32 | Outpatient (BNVA) | payer MEDICARE, SELFPAY | PROVIDERS: PCP Internal Medicine; Visit Provider Internal Medicine | DX: K21.9 Gastro-esophageal reflux disease without esophagitis (principal); E03.9 Hypothyroidism, unspecified; M79.659 Pain in unspecified thigh; M54.16 Radiculopathy, lumbar region; I82.402 Acute embolism and thrombosis of unspecified deep veins of left lower extremity; F41.9 Anxiety disorder, unspecified; F33.9 Major depressive disorder, recurrent, unspecified; Z79.01 Long term (current) use of anticoagulants; D64.9 Anemia, unspecified; E78.00 Pure hypercholesterolemia, unspecified; E53.8 Deficiency of other specified B group vitamins; R30.0 Dysuria; E55.9 Vitamin D deficiency, unspecified | CPT/HCPCS: 99212 ==

== ENCOUNTER 2025-08-09 14:37 | Outpatient (REF) | payer MEDICARE, SELFPAY ==
[2025-08-09 15:54] LABS: Appearance Urine Clear; Glucose Urine UA Negative (Negative); PH 5.5 (5.0-9.0); Specific Gravity - Urine 1.020 (1.005-1.025); UMIC TRIGGER UA YES
[2025-08-09 16:05] LABS: Anion Gap 12 (12-20); Blood Urea Nitrogen 8 mg/dL (9-16); Calcium 9.4 mg/dL (8.4-10.2); Carbon Dioxide 31 mmol/L (22-29); Chloride 104 mmol/L (96-108); Estimated Glomerular Filt Rate > 60; Potassium 3.9 mmol/L (3.3-5.1); Sodium 143 mmol/L (135-145); Uric Acid 6.4 mg/dL (3.4-7.0)
[2025-08-09 16:44] LABS: Microalbum/Creatinine Ratio Ur 7.2 ug/mg cr (<30)
--- OUTSIDE RECORDS SUMMARY | 2025-08-09 17:00 | XMS_ITS | Clinical Summary ---
Author Organization [facility] Address [address] [place] [address] Phone Care Team Providers Care Science Interpreter Name Role Phone He Babcock MD Primary Care Provider [phone] Allergies Active Allergy Reactions Criticality Noted Date [...] Visit [facility] [address] [place] [address] Andi Ramirez MD [address] [address] 08/17/2025 Orders Only [facility] [address] [place] [id number] Andi Ramirez MD [address] [address] Renal stone Health Maintenance Due Date Last Done Comments Pneumococcal Vaccine: 50+ Ye ars (1 of 2 - PCV) 1964 Influenza Vaccine (#1) 2025 Hepatitis B Vaccine Aged Out No longe r eligible based on patient's age to complete this topic Procedures Procedure Name Priority Date/Time Associated Diagnosis Comments ALBUMIN, URINE, RANDOM Routine 08/09/2025 3:28 PM EDT URINALYSIS WITH MICROSCOPIC Routine 08/09/2025 3:28 PM EDT Renal stone CALCIUM Routine 08/09/2025 2:52 PM EDT CREATININE, BLOOD Routine 08/09/2025 2:5 2 PM EDT BUN Routine 08/09/2025 2:52 PM EDT ELECTROLYTE PANEL Routine 08/09/2025 2:5 2 PM EDT URIC ACID Routine 08/09/2025 2:52 PM EDT Renal stone from Last 3 Months Results * Albumin, urine, random (08/09/2025 3:28 PM EDT) Creatinine, Urine 207.32 mg/dL Se e order comments Urine Microalbumin 15.0 mg/L See order comments Microalbumin/Crea tinine Ratio 7.2 <30 ug/mg cr See order comments Comment: Albumin/Creatinine Ratio Reference Ranges: Normal: < 30 ug/mg creatinine Microalbuminuria: 30 - 300 ug/mg creatinine Clinical Albuminuria: > 300 ug/mg creatinine 08/09/2025 3:28 PM EDT 08/09/2025 3:28 PM EDT us Andi Ramirez MD LAB URINE ORDERABLES Final Re sult [place] See order comments [place] [address] * (ABNORMAL) Urinalysis with microscopic (08/09/2025 3:28 PM EDT) Color Urine Yellow See orde r comments Appearance Urine Clear See order comments pH Urine 5.5 5.0 - 9.0 See order comments Glucose Urine Negative Negative mg/dL See order comments Blood, Urine Small (1+)(A) Negative See order comments Specific [place] Urine 1.020 1.005 - 1.025 See order comments Protein Urine Negative Neg-Trace mg/dL See order comments Ketones, Urine Negative Negative mg/dL See order comments Nitrite, Urine Negative Negative See o rder comments Leukocyte Esterase Urine Negative Negative See order comments RBC, Urine 6-10(A) 0 - 2 /HPF See orde r comments WBC 0-5 0 - 5 /HPF See order comments Squamous Epithelial, Urine 0-2 0 - 2 /HPF See order comments Bacteria, Urine None Seen None Seen See order comments Hyaline Casts, Urine 0-2 0 - 2 /LPF See order comments Urine specimen (specimen) Urine specimen obtained by clean catch procedure / Unknown 08/09/2025 3:28 PM EDT 08/09/2025 3:28 PM EDT Andi Ramirez MD LAB URINE ORDERABLES Final Re sult Performing Organization Address [facility] Co de Phone Number [place] See order comments [place] [address] * Creatinine (08/09/2025 2:52 PM EDT) Creatinine Serum 0.95 0.5 - 1.4 mg/dL See order comments eGFR (Calc) >60 See orde r comments Comment: Chronic Kidney Disease: Estimated GFR < 60 mL/min/1.73m2 Severe Kidney Disease: Estimated GFR < 15 mL/min/1.73m2 08/09/2025 2:52 PM EDT 08/09/2025 2:52 PM EDT Andi Ramirez MD LAB BLOOD ORDERABLES Final Re sult Performing Organization Address [facility] Co de Phone Number [place] See order comments [place] [address] * Uric acid (08/09/2025 2:52 PM EDT) Uric Acid 6.4 3.4 - 7.0 mg/dL See order comments Blood specimen (specimen) Venous blood / Unknown 08/09/2025 2:52 PM EDT 08/09/2025 2:52 PM EDT Andi Ramirez MD LAB BLOOD ORDERABLES Final Re sult Performing Organization Address [facility] Co de Phone Number [place] See order comments [place] [address] * (ABNORMAL) BUN (08/09/2025 2:52 PM EDT) BUN 8(L) 9 - 16 mg/dL See order comments 08/09/2025 2:52 PM EDT 08/09/2025 2:52 PM EDT Andi Ramirez MD LAB BLOOD ORDERABLES Final Re sult Performing Organization Address [facility] de Phone Number [facility] See order comments [place] [address] * Calcium (08/09/2025 2:52 PM EDT) Calcium 9.4 8.4 - 10.2 mg/dL See order comments 08/09/2025 2:52 PM EDT 08/09/2025 2:52 PM EDT Andi Ramirez MD LAB BLOOD ORDERABLES Final Re sult Performing Organization Address [facility] Phone Number [place] See order comments [place] [address] * (ABNORMAL) Electrolyte panel (08/09/2025 2:52 PM EDT) Sodium 143 135 - 145 mmol/L See order comments Potassium 3.9 3.3 - 5.1 mmol/L See order comments Chloride 104 96 - 108 mmol/L See order comments Bicarbonate (CO2) 31(H) 22 - 29 mmol/L See order comments Anion Gap 12 12 - 20 See order comments 08/09/2025 2:52 PM EDT 08/09/2025 2:52 PM EDT us Andi Ramirez MD LAB BLOOD ORDERABLES Final Re sult Performing Organization Address [facility] de Phone Number [place] See order comments [place] [address] from Last 3 Months Insurance [facility] Care Teams Science Interpreter Relationship Specialty Start Date End Date He Babcock MD [address] [place] [address] PCP - General 12/12/20
--- OUTSIDE RECORDS SUMMARY | 2025-08-09 17:00 | XMS_ITS | Clinical Summary ---
Author Organization [facility] ity Address [address] [place] [address] Care Team Providers Care Powertrain Calibration Engineer Name Role Phone Unavailable Primary Care [...]
--- OUTSIDE RECORDS SUMMARY | 2025-08-09 17:00 | XMS_ITS | Patient Health Record ---
Author Organization [facility] Address [address] [place] [address] Care Team Providers Care Disc Sander Name Role Phone He Babcock MD Primary Care Provider Guero Contreras Unavailable [phone] Reason For Referral No Information Medications Medication [...] day for 30 day(s) Active Paxil Active Chana-[place] prn Active Questran 4 GM 1 scoop Orally QD-TI D for diarrhea for 30 day(s) 04/27/2016 Active Probiotic Active Metamucil Active Levothyroxine Sodium Active Suphedrine PE PRN Active Problems Problem Type SNOMED Code ICD Code Onset Dates Problem Status W/U Status Risk Notes Problem [id number] Diarrhea, unspecified type (R19.7) Active confirmed Plan Of Treatment No Information Insurance Providers Payer Name Payer Address Payer Phone Subscriber Number Group Number Insured Name Patient Relationship to Insured Coverage Start Date Coverage End Date [facility] [place] [place] [employer] PROFESSIONAL CLAIMS [address] [place] [address] [id number] BHUPENDRA BRUNNER Self - patient is the insured Medical (General) History Medical History History ICD Code Colonoscopy 10-31-2006--negative except for diverticulosis Pulmonary embolus/DVT Prostate cancer Denies [place],DM,CVA,Lung disease,renal dise ase Anxiety Hypothyroidism 2013--Limited colonoscopy [...]
== END 2025-08-09 14:38 | disposition home or self-care (01) ==
LOC: HO.LAB 14:37
PROVIDERS: PCP Internal Medicine; Visit Provider Internal Medicine Nephrology
DX: N20.0 Calculus of kidney (principal)
CPT/HCPCS: 36415; 80051; 81001; 82043; 82310; 82565; 82570; 84520; 84550

== ENCOUNTER 2025-10-27 09:08 | Outpatient (REF) | payer MEDICARE, SELFPAY ==
[2025-10-27 09:28] LABS: MANUAL DIFF FLAG NO
--- OUTSIDE RECORDS SUMMARY | 2025-10-27 09:57 | XMS_ITS | Clinical Summary ---
Author Organization [facility] ity Address [address] [place] [address] Care Team Providers Care Nickel Plater Name Role Phone Unavailable Primary Care Provider [...] nts (1 - 1-dose 75+ series) 2021 Depression Screening 12/02/2024 COVID-19 Vaccine (1 - 2024-2 6 season) 2025 Influenza Vaccine (#1) 2025 HIB Vaccines Aged [...]
--- OUTSIDE RECORDS SUMMARY | 2025-10-27 09:57 | XMS_ITS | Clinical Summary ---
Author Organization [facility] [address] [place] [address] Phone Care Team Providers Care Creative Manager Name Role Phone He Babcock MD Primary Care Provider [phone] Allergies Active Allergy Reactions Criticality Noted Date [...] mouth 1 (one) time each day Active cholecalcifero l (VITAMIN D-3) 25 MCG (1000 UT) capsule Take 1,000 Units by mouth 1 (one) time each day Active Magnesium 500 MG tablet Take 1 tablet by mouth 1 (one) time each day Active hydroCHLOROthi azide 25 MG tablet Take 1 tablet by mouth once daily 90 tablet 5 Active hydroCHLOROthi azide 25 MG tablet Take 1 tablet (25 mg total) by mouth 1 (one) time each day 90 tablet 3 4 10/10/20 25 Discontinued Active Problems Problem Noted Date Diagnosed Date Renal stone 06/08/2021 Encounters Date Type Department Care Team Description 10/10/2025 Refill [facility] [address] [place] [address] Andi Ramirez MD 08/17/2025 Orders Only [facility] [address] [place] [address] Andi Ramirez MD Renal stone from Last 3 Months Family History Medical History Relation Comments Diabetes [...] Care Team (Late st Contact Info) Description 11/11/2025 3:15 PM EST Office Visit [facility] [address] [place] [address] Andi Ramirez MD [address] [facility] [address] [place] [address] Health Maintenance Due Date Last [...] order comments [place] [address] * (ABNORMAL) Urinalysis with microscopic (08/09/2025 3:28 PM EDT) Color Urine Yellow See orde r comments Appearance Urine Clear See order comments pH Urine 5.5 5.0 - 9.0 See order comments Glucose Urine Negative Negative mg/dL See order comments Blood, Urine Small (1+)(A) Negative See order comments Specific [place] Urine 1.020 1.005 - 1.025 See order [...] ORDERABLES Final Re sult Performing Organization Address [facility] de Phone Number [place] See order comments [place] [address] * Creatinine (08/09/2025 2:52 PM EDT) Creatinine Serum 0.95 0.5 - 1.4 mg/dL See order comments eGFR (Calc) >60 See orde r comments Comment: Chronic Kidney Disease: Estimated GFR < 60 mL/min/1.73m2 Severe Kidney Disease: Estimated GFR < 15 mL/min/1.73m2 08/09/2025 2:52 PM EDT 08/09/2025 2:52 PM EDT us Andi Ramirez MD LAB BLOOD ORDERABLES Final Re sult Performing Organization Address [facility] Co de Phone Number [facility] See order comments [place] [address] * Uric acid (08/09/2025 2:52 PM EDT) Uric Acid 6.4 3.4 - 7.0 mg/dL See order comments Blood specimen (specimen) Venous blood / Unknown 08/09/2025 2:52 PM EDT 08/09/2025 2:52 PM EDT us Andi Ramirez MD LAB BLOOD ORDERABLES Final Re sult Performing Organization Address [facility] Co de Phone Number [place] See order comments [place] [address] * (ABNORMAL) BUN (08/09/2025 2:52 PM EDT) BUN 8(L) 9 - 16 mg/dL See order comments 08/09/2025 2:52 PM EDT 08/09/2025 2:52 PM EDT Andi Ramirez MD LAB BLOOD ORDERABLES Final Re sult Performing Organization Address [facility] Co de Phone Number [place] See order comments [place] [address] * Calcium (08/09/2025 2:52 PM EDT) Calcium 9.4 8.4 - 10.2 mg/dL See order comments 08/09/2025 2:52 PM EDT 08/09/2025 2:52 PM EDT Andi Ramirez MD LAB BLOOD ORDERABLES Final Re sult Performing Organization Address [facility] de Phone Number [place] See order comments [place] [address] * (ABNORMAL) Electrolyte panel (08/09/2025 2:52 PM [...] ORDERABLES Final Re sult Performing Organization Address [facility] Co de Phone Number [place] See order comments [place] [address] from Last 3 Months Insurance [facility] Care Teams Creative Manager Relationship Specialty Start Date End Date He Babcock MD [address] [place] [address] PCP - General 12/12/20
--- OUTSIDE RECORDS SUMMARY | 2025-10-27 09:57 | XMS_ITS | Patient Health Record ---
Author Organization [facility] Address [address] [place] [address] Care Team Providers Care Psychiatric Aide Instructor Name Role Phone He Babcock MD Primary Care Provider Guero Contreras Unavailable [phone] Reason For Referral No Information Medications Medication SIG (Take, Route, Fr equency, Duration) Notes Start Date End Date Status Naproxen Active immodium Active ASA 325mg qd Active tylenol Active Multivitamin Active Sudafed Active Vitamin B12 Active Questran 4 GM Powder 1 scoop Orally two or three times a day for diarrhea--use at leat twice a day every day; Duration: 30 day(s) Active Paxil Active Chana-[place] prn Active Questran 4 GM Powder 1 scoop Orally QD-T ID for diarrhea; Duration: 30 day(s) 04/27/2016 Ac tive Probiotic Active Metamucil Active Levothyroxine Sodium Active Suphedrine PE PRN Active Social History Social History Additional Details Category Social Info Options Details Miscellaneous: Exercise: 3-4 times per week goes to gym Marital status: Occupation: retired Section Notes: Nonsmoker; no sig alchol Nonsmoker; no sig alchol Problems Problem Type SNOMED Code ICD Code Onset Dates Problem Status W/U Status Risk Notes Problem Diarrhea (97718148) Diarrhea, unspecified type (R19.7) Active confirmed Plan Of Treatment No Information Insurance Providers Payer Name Payer Address Payer Phone Subscriber Number Group Number Insured Name Patient Relationship to Insured Coverage Start Date Coverage End Date [facility] [address] [place] [address] [phone] [id number] BHUPENDRA BRUNNER Self - patient is the insured Medical (General) History Medical History History ICD Code Colonoscopy 10-31-2006--negative except for diverticulosis Pulmonary embolus/DVT Prostate cancer Denies [place],DM,CVA,Lung disease,renal dise ase Anxiety Hypothyroidism 2013--Limited colonoscopy [...]
[2025-10-27 10:01] LABS: Hematocrit 43.1 % (42.0-52.0); Hemoglobin 14.3 g/dl (14.0-18.0); Imm Gran Abs Auto 0.02 X10*3/uL (0.00-0.03); Imm Gran Pct Auto 0.2 % (0.0-0.4); Lymphocytes Absolute Auto 3.3 X10*3/uL (1.2-4.9); Mean Corpuscular HGB Conc 33.2 g/dl (31.0-36.0); Mean Corpuscular Hemoglobin 30.0 pg (27.0-33.0); Mean Corpuscular Volume 90.5 fL (80.0-98.0); NRBC Abs Auto 0.000 X10*3/uL (0.0-0.012); NRBC Pct Auto 0.0 /100WBC (0.0-0.2); Platelet Count 366 X10*3/uL (160-400); Red Blood Count 4.76 X10*6/uL (4.60-5.80); White Blood Count 9.4 X10*3/uL (4.8-10.8)
[2025-10-27 10:37] LABS: Appearance Urine Clear; Glucose Urine UA Negative (Negative); PH 5.5 (5.0-9.0); Specific Gravity - Urine 1.015 (1.005-1.025); UMIC TRIGGER UACC YES
[2025-10-27 11:39] LABS: Alanine Aminotransferase 16 U/L (0-40); Albumin Level 4.3 g/dL (3.5-5.0); Alkaline Phosphatase 89 U/L (39-117); Anion Gap 15 (12-20); Aspartate Amino Transferase 27 U/L (5-37); Blood Urea Nitrogen 9 mg/dL (9-16); Calcium 9.9 mg/dL (8.4-10.2); Carbon Dioxide 31 mmol/L (22-29); Chloride 100 mmol/L (96-108); Cholesterol 197 mg/dL (<200); Estimated Glomerular Filt Rate > 60; HDL Cholesterol 53 mg/dL (>40); Potassium 3.8 mmol/L (3.3-5.1); Sodium 142 mmol/L (135-145); Total Protein 7.7 g/dL (6.5-8.0); Triglycerides 240 mg/dL (<150)
[2025-10-27 11:47] LABS: Free T4 (Free Thyroxine) 1.26 ng/dL (0.71-1.85); Thyroid Stimulating Hormone 1.02 uIU/mL (0.32-4.0)
[2025-10-27 11:48] LABS: Folate 13.5 ng/mL (> or = 4.0); Vitamin B12 > 2000 pg/mL (200-900)
== END 2025-10-27 09:09 | disposition home or self-care (01) ==
LOC: HO.LAB 09:08
PROVIDERS: PCP Internal Medicine; Visit Provider Internal Medicine
DX: E53.8 Deficiency of other specified B group vitamins (principal); D64.9 Anemia, unspecified; E03.9 Hypothyroidism, unspecified; E55.9 Vitamin D deficiency, unspecified; E78.00 Pure hypercholesterolemia, unspecified
CPT/HCPCS: 36415; 80053; 80061; 81001; 81003; 82306; 82607; 82746; 84439; 84443; 85025

== ENCOUNTER 2025-11-03 13:46 | Outpatient (AMB) | payer MEDICARE, SELFPAY ==
[2025-11-03 13:56] VITALS: BP 122/78; PULSE 89; O2SAT 97; BMI 21.4
--- NOTE | 2025-11-03 13:56 | MHC.PC.OV ---
Vital Signs 11/03/25 13:56 Height 5 ft 9 in Weight 145 lb BMI 21.4 BP 122/78 Blood Pressure Location Lt brachial Position Sitting Pulse 89 Pulse Source Pulse Oximeter Pulse Oximetry (%) 97 Oxygen Delivery Method Room Air Intake Visit Reasons: annual exam Pit Recorder Required: No Accompanied by: Self / Same As Patient Allergies Gadolinium-Containing Contrast Medi (Gadolinium-Containing Contrast) Adverse Reaction (Mild, Verified 11/03/25 14:14) VOMITING Medication List - Last Reconciled 11/03/25 by Dinesh Yen MD apixaban (Eliquis) 5 mg PO BID 90 days Bacillus coagulans (Probiotic (B. coagulans)) cells PO biotin 1 capsule orally daily; cholecalciferol (vitamin D3) 25 mcg PO DAILY fexofenadine (Shanique Allergy) 180 mg PO DAILY hydrochlorothiazide 25 mg PO DAILY levothyroxine 88 mcg PO DAILY 90 days lorazepam 0.5 mg PO Q6H PRN multivitamin 1 tab PO DAILY omeprazole 20 mg PO DAILY paroxetine HCl 20 mg PO DAILY tamsulosin 0.4 mg PO DAILY Tobacco use date assessed: 11/03/25 Fall risk assessment: No Falls in past year Last assessed Fall Risk: 11/03/25 Dental Screening Dental Screen Date: 11/03/25 Did you have a dental visit in the last 12 months?: Yes Did you have a dental problem in the last 6 months where you did not have access to dental care?: No Was dental information given to patient?: Patient has dentist HPI annual exam HPI Details Patient comes in today for his annual physical examination States that he feels okay He denies any headaches or dizziness Denies any chest pains, no SOB No nausea/vomiting, no abdominal pain No change in bowel habits noted He denies any acute urinary symptoms He had his follow up labs done last week - to discuss his results He had his screening colonoscopy last done back in 2013 - was reportedly normal and he was advised that his next colonoscopy in 10 years would be optional based on his age and health at the time [facility] Medical History (Updated 11/03/25 @ 14:19 by Dinesh Yen MD) Enterocutaneous fistula Paroxysmal atrial fibrillation History of prostate cancer History of ischemic colitis Depression Anxiety GERD without esophagitis Acquired hypothyroidism Thromboembolism Surgical History (Updated 11/03/25 @ 14:24 by Dinesh Yen MD) Status post lumbar microdiscectomy Hx of colonoscopy History of abdominal surgery History of partial thyroidectomy History of ileostomy S/P excision of lipoma History of thyroid nodule History of prostatectomy Family History Father Diabetes Congestive heart failure Mother Diabetes Heart disease Social History Housing: House Are you a primary customer care consultant to a significant other at home: No Do you presently have visiting nurse or other home services: No Alcohol intake: never Patient Tobacco Use Status: Never used Tobacco Tobacco use type: Cigarette e-Cigarette/Vaping Use: Never Used Second Hand Smoke Exposure: No service: No Current occupational status: retired Cognitive needs: No Hearing needs: No Vision needs: Yes Questionnaire PHQ-9 Over the last 2 weeks, how often have you been bothered by any of the following problems? 1. Little interest or pleasure in doing things: nearly every day 2. Feeling down, depressed, or hopeless: more than half the days 3. Trouble falling or staying asleep, or sleeping too much: several days 4. Feeling tired or having little energy: not at all 5. Poor appetite or overeating: not at all 6. Feeling bad about yourself - or that you are a failure or have let yourself or your family down: not at all 7. Trouble concentrating on things, such as reading the newspaper or watching television: not at all 8. Moving or speaking so slowly that other people could have noticed. Or the opposite - being so fidgety or restless that you have been moving around a lot more than usual: not at all 9. Thoughts that you would be better off or of hurting yourself in some way: not at all Total score: 6 Depression Screening Interpretation: Positive Depression Screening Follow-up: Existing condition and In treatment Depression Screening Done: Yes 67258 - PHQ-9 Billing: Yes Source: Developed by Drs. Guero Aiken, Mali Rendon, Rupesh Vargas and colleagues, with an educational zackery from [employer]. Thrive Questionnaire Date Thrive assessed: 11/03/25 I am a: Patient What is your living situation today?: I have a steady place to live Within the past 12 months, did the food you bought not last and you didn't have the money to get more?: I choose not to answer this question Within the past 12 months, did you worry whether your food would run out before you got money to buy more?: I choose not to answer this question Do you have trouble paying for medicines?: I choose not to answer this question Do you have trouble getting transportation to medical appointments?: No Do you have trouble paying your heating and electricity bill?: No Do you have trouble taking care of your child, family member or friend?: I choose not to answer this question Do you have trouble with day-to-day activities such as bathing, preparing meals, shopping, managing finances, etc.?: Yes Are you currently unemployed and looking for a job?: Yes Are you interested in more education?: No Please select the resources that you would like help with: None Currently or been in a relationship where the following occur: I choose not to answer THRIVE Score: 0 AUDIT C Alcohol Use Questionnaire (AUDIT-C) 1. How often do you have a drink containing alcohol?: Never 3. How often do you have six or more drinks on one occasion?: Never Total Score: 0 Score Reviewed/Action Taken: Yes JOSIAS-7 AMB Questionnaire JOSIAS-7 Date JOSIAS - 7 assessed: 11/03/25 Feeling nervous, anxious, or on edge: 0 = Not at all Not being able to stop or control worryin = Not at all Worrying too much about different things: 0 = Not at all Trouble relaxin = Several days Being so restless that it is hard to sit still: 0 = Not at all Becoming easily annoyed or irritable: 1 = Several days Feeling afraid as if something awful might happen: 0 = Not at all Total JOSIAS-7 score (0-4 normal; 5-9 mild; 10-14 moderate; 15-21 severe): 2 Source: Developed by Drs. Guero Aiken, Mali Rendon, Rupesh Vargas and colleagues, with an educational zackery from [employer]. Review of Systems Const Denies chills, Denies fatigue, Denies fever(s), Denies headache(s), Denies malaise and Denies weakness Eyes Denies blurry vision, Denies change in vision, Denies irritation and Denies itchy eyes ENT Denies dysphagia, Denies dizziness, Denies otalgia, Denies headache(s), Denies nasal congestion, Denies neck pain, Denies odynophagia and Denies sore throat Card Denies rapid heart rate, Denies irregular heart rhythm, Denies palpitations and Denies dyspnea Resp Denies chest congestion, Denies cough, Denies dyspnea and Denies wheezing GI Denies abdominal pain, Denies bloating, Denies constipation, Denies dysphagia, Denies heartburn, Denies diarrhea, Denies nausea, Denies odynophagia and Denies vomiting Denies hematuria, Denies difficulty urinating, Denies dysuria, Denies urinary frequency and Denies urinary urgency Musc Denies back pain, Denies arthralgias, Denies joint swelling, Denies muscle weakness and Denies neck pain Skin/Breast Denies change in pigmentation, Denies lesions, Denies rash and Denies unusual bruising Neuro Denies dizziness, Denies headache(s), Denies paresthesias and Denies weakness Endo Denies fatigue and Denies palpitations Aller/Immun Denies itchy eyes and Denies wheezing Physical exam (Primary Care) Vital Signs: Last Vital Signs Pulse 89 11/03/25 13:56 BP 122/78 11/03/25 13:56 Pulse Ox 97 11/03/25 13:56 Oxygen Delivery Method Room Air 11/03/25 13:56 BMI result Body Mass Index 21.4 Tobacco/Smoking Status: Tobacco use Status Tobacco use date assessed 11/03/25 11/03/25 14:02 Patient Tobacco Use Status Never used Tobacco 11/03/25 14:02 Tobacco use type Cigarette 11/03/25 14:02 e-Cigarette/Vaping Use Never Used 11/03/25 14:02 PHQ-9: PHQ-9 Score PHQ-9: Total score 6 11/03/25 14:21 Depression Screening Interpretation: Positive Depression Screening Follow-up: Existing condition and In treatment Thrive Assessment: Date of Thrive Assessment Date Thrive assessed 11/03/25 11/03/25 14:02 Currently or been in a relationship where the following occur: I choose not to answer Const General: no acute distress, alert and awake Orientation/consciousness: patient oriented x3 HENMT Head: Yes normocephalic and Yes atraumatic Ears: external ears normal, TM's normal bilaterally and EAC's normal General nose exam: No nasal discharge present Face and sinus: Yes normal facial exam and Yes sinuses nontender Teeth and gingiva: dentition normal Throat: Yes posterior oropharynx normal and Yes tonsils normal (no TP congestion) Eyes Eyelids: Yes eyelids normal Conjunctivae: conjunctivae normal Pupils: Equal, round and reactive pupils present EOM: EOMs intact bilaterally Neck Neck: Yes supple and No lymphadenopathy Thyroid: Thyroid normal Resp Auscultation: clear to auscultation bilaterally, no rales and no wheezes Cardio Rate: regular rate Rhythm: regular rhythm Heart sounds: no murmurs GI Palpation (GI): Soft to palpation, nontender and No hepatosplenomegaly present Auscultation: normal bowel sounds General: Yes no CVA tenderness Back/Spine/Pelvis Back: no CVA tenderness Thoracic/Lumbar Spine: lumbar spinal tenderness Skin Lesions: no lesions Rashes: no rashes Neuro General: patient oriented x3, moves all extremities, no focal motor deficits and CN's II-XI intact bilaterally Cranial nerves: Yes Equal, round and reactive pupils present Cognition (Neuro): normal cognition Gait exam (Neuro): Normal gait present Extrem General: Yes no clubbing, cyanosis or edema Results Reviewed Results Reviewed: Laboratory Tests 10/27/25 10/27/25 09:26 09:30 WBC 9.4 Hgb 14.3 Hct 43.1 Plt Count 366 Sodium 142 Potassium 3.8 Creatinine 0.91 Estimated GFR > 60 Fasting Glucose 87 Calcium 9.9 AST 27 ALT 16 Triglycerides 240 H Cholesterol 197 LDL Cholesterol, Calc 96 HDL Cholesterol 53 Vitamin B12 > 2000 H 25-OH Vitamin D Total 39.0 TSH 1.02 Free T4 1.26 Ur Specific [place] 1.015 Urine Protein Negative Urine Glucose (UA) Negative Urine Blood Trace H Urine Nitrite Negative Ur Leukocyte Esterase Negative Coding Level of Care Code Est Pt Prev Care >65y(92291) Diagnoses Annual physical exam Z00.00 Lumbar back pain with radiculopathy affecting right lower extremity M54.16 Acquired hypothyroidism E03.9 GERD without esophagitis K21.9 Deep vein thrombosis (DVT) of left lower extremity, unspecified chronicity, unspecified vein I82.402 Affected thrombotic vein of extremity: unspecified vein of extremity Chronicity: unspecified Anxiety F41.9 Episode of recurrent major depressive disorder, unspecified depression episode severity F33.9 Active/Remission status: currently active Depression Type: major depressive disorder Major depression episode severity: unspecified Major depression recurrence: recurrent Additional Codes PHQ-9 - 86468 - PHQ-9 Billing: Yes ([id number]) Assessment & Plan Assessment & Plan (1) Annual physical exam: Code(s): Z00.00 - Encounter for general adult medical examination without abnormal findings Category: Medical Plan: Results of his labs done last week reviewed and discussed with patient He had his screening colonoscopy last done back [place] [address] Shaw - his colonoscopy was reportedly normal and he was advised that his next colonoscopy in 10 years would be optional based on his age and health at the time Will refer him back to Dr. Shaw for further evaluation and recommendations on whether he needs to have another colonoscopy done at this time or not (2) Lumbar back pain with radiculopathy affecting right lower extremity: Code(s): M54.16 - Radiculopathy, lumbar region Category: Medical Plan: S/P L5-S1 microdiscectomy with Dr. Martinez on 05/20/2025, with significant improvement of his symptoms Reinforced activity and weight-lifting restrictions (3) Acquired hypothyroidism: Code(s): E03.9 - Hypothyroidism, unspecified Category: Medical Plan: His TFTs were normal on his labs done last week Continue levothyroxine 88 mcg QD We will recheck his labs in 3 months for follow-up (4) GERD without esophagitis: Code(s): K21.9 - Gastro-esophageal reflux disease without esophagitis Category: Medical Plan: Dietary restrictions reinforced Continue omeprazole 20 mg QD (5) Deep vein thrombosis, lower left extremity: Comment: (+) history of bilateral pulmonary embolism and DVT - Code(s): I82.402 - Acute embolism and thrombosis of unspecified deep veins of left lower extremity Category: Medical Qualifiers: Affected thrombotic vein of extremity: unspecified vein of extremity Chronicity: unspecified Qualified Code(s): I82.402 - Acute embolism and thrombosis of unspecified deep veins of left lower extremity Plan: Continue Eliquis 5 mg BID Patient developed DVT of the left lower extremity after his lumbar spine diskectomy in May 2025 He presently has two months of his medication remaining A follow-up ultrasound done back in June showed the clot was still present Patient reports that the swelling has decreased significantly and attributes the clot to immobility following a past surgery but he also has (+) past Hx of a blood clot and pulmonary embolism in the so he may need further evaluation for possible hypercoagulability before deciding whether to stop his anticoagulation or not once his current DVT is resolved (6) Anxiety: Code(s): F41.9 - Anxiety disorder, unspecified Category: Medical Plan: Continue Lorazepam 0.5 mg Q 6 hours PRN and Paroxetine 20 mg QD (7) Depression: Code(s): F32.A - Depression, unspecified Category: Medical Qualifiers: Active/Remission status: currently active Depression Type: major depressive disorder Major depression episode severity: unspecified Major depression recurrence: recurrent Qualified Code(s): F33.9 - Major depressive disorder, recurrent, unspecified Plan: Continue Paroxetine 20 mg QD Plan Follow up in 3 months Orders: Orders UA CC w/rflx Micro + Cult 3 Months R30.0 - Dysuria Complete Blood Count Auto Diff 3 Months D64.9 - Anemia, unspecified US venous duplex LE LT 11/03/25 I82.402 - Acute embolism and thrombosis of unspecified deep veins of left lower extremity Comprehensive [place]. Panel Fast 3 Months E78.00 - Pure hypercholesterolemia, unspecified Lipid Panel 3 Months E78.00 - Pure hypercholesterolemia, unspecified Vitamin B12 and Folate 3 Months E53.8 - Deficiency of other specified B group vitamins Referrals Gastroenterology Referral Z12.11 - Encounter for screening for malignant neoplasm of colon
--- OUTSIDE RECORDS SUMMARY | 2025-11-03 16:31 | XMS_ITS | Patient Health Record ---
Author Organization [facility] Address [address] [place] [address] Care Team Providers Care Software Developer Name Role Phone He Babcock MD Primary Care Provider Guero Contreras Unavailable [phone] Reason For Referral No Information Medications Medication [...] day; Duration: 30 day(s) Active Paxil Active Chana-[place] prn Active Questran 4 GM Powder 1 [...] Status W/U Status Risk Notes Problem Diarrhea ([id number]) Diarrhea, unspecified type (R19.7) Active confirmed Plan Of Treatment No Information Insurance Providers Payer Name Payer Address Payer Phone Subscriber Number Group Number Insured Name Patient Relationship to Insured Coverage Start Date Coverage End Date [facility] [address] [place] [address] [id number] BHUPENDRA BRUNNER Self - patient is the insured Medical (General) History Medical History History ICD Code Colonoscopy 10-31-2006--negative except for diverticulosis Pulmonary embolus/DVT Prostate cancer Denies [place],DM,CVA,Lung disease,renal dise ase Anxiety Hypothyroidism 2013--Limited colonoscopy [...]
--- OUTSIDE RECORDS SUMMARY | 2025-11-03 16:31 | XMS_ITS | Clinical Summary ---
Author Organization [facility] Address [address] [place] [address] Care Team Providers Care Horizontal Resaw Operator Name Role Phone Unavailable Primary Care Provider [...]
== END 2025-11-03 14:39 | disposition home or self-care (01) ==
LOC: HO.HMCH 13:47
PROVIDERS: PCP Internal Medicine; Visit Provider Internal Medicine
DX: Z00.00 Encounter for general adult medical examination without abnormal findings (principal); I82.402 Acute embolism and thrombosis of unspecified deep veins of left lower extremity; M54.16 Radiculopathy, lumbar region; E03.9 Hypothyroidism, unspecified; K21.9 Gastro-esophageal reflux disease without esophagitis; F41.9 Anxiety disorder, unspecified; F33.9 Major depressive disorder, recurrent, unspecified

== ENCOUNTER → 2025-11-03 13:46 | Outpatient (BNVA) | payer MEDICARE, SELFPAY | PROVIDERS: PCP Internal Medicine; Visit Provider Internal Medicine | DX: Z00.00 Encounter for general adult medical examination without abnormal findings (principal); M54.16 Radiculopathy, lumbar region; E03.9 Hypothyroidism, unspecified; K21.9 Gastro-esophageal reflux disease without esophagitis; I82.402 Acute embolism and thrombosis of unspecified deep veins of left lower extremity; F41.9 Anxiety disorder, unspecified; F33.9 Major depressive disorder, recurrent, unspecified; R30.0 Dysuria; D64.9 Anemia, unspecified; E78.00 Pure hypercholesterolemia, unspecified; E53.8 Deficiency of other specified B group vitamins | CPT/HCPCS: 96127; 99397 ==

== ENCOUNTER 2025-11-08 13:24 | Outpatient (REF) | payer MEDICARE, SELFPAY ==
--- NOTE | ~2025-11-08 | US_ITS ---
EXAMINATION: US TRIPLEX LOWER EXTREMITY, LEFT CLINICAL INFORMATION: Patient with known left lower extremity DVT, on anticoagulation, follow-up exam. COMPARISON: 06/18/2025. TECHNIQUE: Color-flow triplex imaging with spectral analysis and compression Doppler were performed on the left lower extremity. FINDINGS: There is persistent chronic appearing thrombus seen extending from the proximal femoral vein into the tibial/peroneal trunk and into one of the gastroc veins. This overall appears improved from previous studies, the patient is anticoagulated. There is no new DVT appreciated. There is no Whitley's cyst. US/US venous duplex LE LT IMPRESSION: 1. Mild improvement in chronic appearing DVT involving the distal femoral vein, into the tibial peroneal trunk and 1 of the gastroc veins. 2. No new thrombus identified. Electronically signed by: Young Vo MD 11/08/2025 02:58 PM APRIL RIVERA
--- OUTSIDE RECORDS SUMMARY | 2025-11-08 22:08 | XMS_ITS | Patient Health Record ---
Author Organization [facility] Address [address] [place] [address] Care Team Providers Care Lumber Bearer Name Role Phone Farshad SUTTON, [place] Primary Care Provider Guero Maldonado [phone] Reason For Referral No Information Medications Medication [...] day; Duration: 30 day(s) Active Paxil Active Chana-[place] prn Active Questran 4 GM Powder 1 [...] Status W/U Status Risk Notes Problem Diarrhea ([id number]) Diarrhea, unspecified type (R19.7) Active confirmed Plan Of Treatment No Information Insurance Providers Payer Name Payer Address Payer Phone Subscriber Number Group Number Insured Name Patient Relationship to Insured Coverage Start Date Coverage End Date [facility] PROFESSIONAL CLAIMS [address] [place] [address] [phone] [id number] BHUPENDRA KIMBROUGH Self - patient is the insured Medical (General) History Medical History History ICD Code Colonoscopy 10-31-2006--negative except for diverticulosis Pulmonary embolus/DVT Prostate cancer Denies [place],DM,CVA,Lung disease,renal dise ase Anxiety Hypothyroidism 2013--Limited colonoscopy [...] colon, and an ileostomy In January,August, and Sepo 2013 he had surgeries for reversal of the colostomy and ileostomy, as well as some revisions of the anastamoses.
--- OUTSIDE RECORDS SUMMARY | 2025-11-08 22:08 | XMS_ITS | Clinical Summary ---
Author Organization [facility] ity Address [address] [place] [address] Care Team Providers Care Certified Personal Trainer Name Role Phone Unavailable Primary Care Provider [...]
== END 2025-11-08 13:25 | disposition home or self-care (01) ==
LOC: HO.US 13:24
PROVIDERS: Visit Provider Internal Medicine
DX: I82.402 Acute embolism and thrombosis of unspecified deep veins of left lower extremity (principal)
CPT/HCPCS: 93971

== ENCOUNTER → 2025-11-08 13:27 | Outpatient (BNV) | payer MEDICARE, SELFPAY | PROVIDERS: Visit Provider Radiology Diagnostic Radiology | DX: I82.402 Acute embolism and thrombosis of unspecified deep veins of left lower extremity (principal); Z79.01 Long term (current) use of anticoagulants | CPT/HCPCS: 93971 ==